=== PATIENT | female | born 1970 | race Caucasian/White ===

== ENCOUNTER 2021-05-08 08:32 | Outpatient (REF) | payer BC, SELFPAY ==
--- NOTE | ~2021-05-08 | MM_ITS ---
EXAMINATION: MM SCREENING DIGITAL BREAST TOMOSYNTHESIS, BILATERAL CLINICAL INFORMATION: Screening. Asymptomatic. The lifetime risk of breast cancer based on the Tyrer-Cuzick Model is 18%. COMPARISON: Mammography: 05/02/2020, 04/27/2019 (baseline) TECHNIQUE: Digital breast tomosynthesis is performed in both the craniocaudal and mediolateral oblique views along with computer-aided detection (CAD). Synthesized 2D images are generated from the tomosynthesis. FINDINGS: There are scattered areas of fibroglandular density (ACR BI-RADS breast composition Category b). There are no significant masses, abnormal calcifications, or other abnormalities. Parenchymal pattern is similar to prior studies. No developing density. Skin contours are smooth. No significant changes. MM/MM tomosynthesis screening BI IMPRESSION: No mammographic evidence of malignancy. ASSESSMENT: BI-RADS 1: Negative RECOMMENDATION: Routine annual mammography screening. This patient's information was entered into a reminder system with a target due date for their next mammogram.
== END 2021-05-08 08:33 | disposition home or self-care (01) ==
LOC: HO.MAMMO 08:32
PROVIDERS: PCP Internal Medicine; Visit Provider Internal Medicine
DX: Z12.31 Encounter for screening mammogram for malignant neoplasm of breast (principal)
CPT/HCPCS: 77063; 77067

== ENCOUNTER 2022-05-11 10:20 | Outpatient (REF) | payer BC, SELFPAY ==
--- NOTE | ~2022-05-11 | MM_ITS ---
EXAMINATION: MM SCREENING DIGITAL BREAST TOMOSYNTHESIS, BILATERAL CLINICAL INFORMATION: Screening. Asymptomatic. Family history breast cancer, mother. The lifetime risk of breast cancer based on the Tyrer-Cuzick Model is 22%. COMPARISON: Mammography: 05/08/2021, 05/02/2020, 04/27/2019 TECHNIQUE: Digital breast tomosynthesis is performed in both the craniocaudal and mediolateral oblique views along with computer-aided detection (CAD). Synthesized 2D images are generated from the tomosynthesis. FINDINGS: There are scattered areas of fibroglandular density (ACR BI-RADS breast composition Category b). Left breast has tightly grouped smooth nodularity mid 3:30 o'clock position encompassing an area just under 1 cm representing change from prior studies, possibly grouped cysts or intramammary node. Patient will be recalled for additional imaging. The remainder the breasts show parenchymal pattern similar to prior studies. There is no architectural abnormality or abnormal calcifications. The axilla and skin contours are unremarkable. MM/MM tomosynthesis screening BI IMPRESSION: Left: -Tightly grouped smooth nodularity mid 3:30 o'clock position possibly cyst or intramammary node. Right: -No mammographic evidence of malignancy. ASSESSMENT: BI-RADS 0: Incomplete - Need Additional Imaging Evaluation RECOMMENDATION: 1. Targeted ultrasound left breast. 2. Radiology department staff will contact the patient for additional imaging. This patient's information was entered into a reminder system with a target due date for their next mammogram.
== END 2022-05-11 10:21 | disposition home or self-care (01) ==
LOC: HO.MAMMO 10:20
PROVIDERS: PCP Internal Medicine; Visit Provider Internal Medicine
DX: Z12.31 Encounter for screening mammogram for malignant neoplasm of breast (principal)
CPT/HCPCS: 77063; 77067

== ENCOUNTER 2022-05-15 09:28 | Outpatient (REF) | payer BC, SELFPAY ==
--- NOTE | ~2022-05-15 | US_ITS ---
EXAMINATION: US DIAGNOSTIC ULTRASOUND BREAST, LEFT CLINICAL INFORMATION: Recall from screening mammography for small grouped smooth nodularity mid 3:30 o'clock left breast. Family history breast cancer mother. TC score 22%. COMPARISON: Mammography 05/11/2022, 05/08/2021. TECHNIQUE: Ultrasound of the left breast is targeted to the outer breast. Grayscale imaging and color Doppler are performed without and with harmonics. FINDINGS: There are several grouped small simple cysts 3:30 o'clock position 4 cm from nipple with overall combined dimensions just under 1 cm corresponding to recent mammography. There is increased through-transmission of sound. No solid component or associated color flow. There is no focal suspicious finding. There is no solid mass, architectural abnormality, or duct ectasia. Results are discussed with the patient at time of visit. US/US breast LT limited IMPRESSION: Small simple cysts grouped 3:30 o'clock position corresponding to recent mammography. ASSESSMENT: BI-RADS 2: Benign RECOMMENDATION: Routine annual mammography screening. This patient's information was entered into a reminder system with a target due date for their next mammogram.
== END 2022-05-15 09:29 | disposition home or self-care (01) ==
LOC: HO.MAMMO 09:28
PROVIDERS: PCP Internal Medicine; Visit Provider Internal Medicine
DX: N63.25 Unspecified lump in the left breast, overlapping quadrants (principal)
CPT/HCPCS: 76642

== ENCOUNTER 2023-05-17 10:49 | Outpatient (REF) | payer BC, SELFPAY | END 2023-05-17 10:50 | disposition home or self-care (01) | LOC: HO.MAMMO 10:49 | PROVIDERS: PCP Hospitalist; Visit Provider Hospitalist | DX: Z12.31 Encounter for screening mammogram for malignant neoplasm of breast (principal) | CPT/HCPCS: 77063; 77067 ==

== ENCOUNTER → 2023-05-17 11:00 | Outpatient (BNV) | payer BC, SELFPAY | PROVIDERS: PCP Hospitalist; Visit Provider Radiology Diagnostic Radiology | DX: Z12.31 Encounter for screening mammogram for malignant neoplasm of breast (principal) | CPT/HCPCS: 77063; 77067 ==

== ENCOUNTER 2023-08-04 14:37 | Outpatient (AMB) | payer BC, SELFPAY ==
[2023-08-04 14:43] VITALS: BP 124/74; PULSE 97; O2SAT 99; BMI 37.1
--- NOTE | 2023-08-04 14:43 | A.OFFPC_ITS ---
Vital Signs 08/04/23 14:43 Height 5 ft 4 in Weight 216 lb BMI 37.1 BP 124/74 Blood Pressure Location Lt brachial Position Sitting Pulse 97 Pulse Source Pulse Oximeter Pulse Oximetry (%) 99 Oxygen Delivery Method Room Air Intake Visit Reasons: New patient-Requesting physical Intake Note: Patient is here as a new patient, and would like to discuss weight loss, and pressure in her bladder area. Allergies azithromycin Allergy (Unknown, Verified 08/04/23 14:45) stomach upset Tobacco use date assessed: 08/04/23 Dental Screening Dental Screen Date: 08/04/23 Did you have a dental visit in the last 12 months?: Yes Did you have a dental problem in the last 6 months where you did not have access to dental care?: No Was dental information given to patient?: Patient has dentist HPI New patient-Requesting physical HPI Details New patient Prior PCP:?Dr. Hook, Dr. Forrest Last office visit/CPE: 5 years ago Acute issue(s): Bladder pressure from November till February. -She denies any dysuria or frequency. Sh e has had UTIs before but states symptoms feel different. PMHx: Obesity, Asthma SurgHx: second child 2000, tubal ligation FHx: Mom: Breast Cancer 74. Dad: Healthy. Brother: CAD. SocHx: Nonsmoker. EtOH 1-2x per year. No drugs. PFSH Medical History (Updated 08/04/23 @ 15:33 by Daniel Bond) delivery delivered Asthma Surgical History (Updated 08/04/23 @ 14:53 by Lien Patterson [employer]) H/O tubal ligation Family History (Updated 08/04/23 @ 14:56 by Lien Patterson CMA) Mother Breast cancer Sister Breast cancer Family/Other Leukemia Social History (Updated 08/04/23 @ 14:58 by Lien Patterson CMA) Household Members: Children Housing: Condominium Are you a primary transitional care nurse to a significant other at home: No Do you presently have visiting nurse or other home services: No Alcohol intake: current Patient Tobacco Use Status: Never used Tobacco e-Cigarette/Vaping Use: Never Used service: No Current occupational status: employed 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 1. Little interest or pleasure in doing things: not at all 2. Feeling down, depressed, or hopeless: not at all 3. Trouble falling or staying asleep, or sleeping too much: several days 4. Feeling tired or having little energy: several days 5. Poor appetite or overeating: several days 6. Feeling bad about yourself - or that you are a failure or have let yourself or your family down: not at all 7. Trouble concentrating on things, such as reading the newspaper or watching television: not at all 8. Moving or speaking so slowly that other people could have noticed. Or the opposite - being so fidgety or restless that you have been moving around a lot more than usual: not at all 9. Thoughts that you would be better off or of hurting yourself in some way: not at all Total score: 3 Source: Developed by Drs. Lenin Ortiz, Felicia Pitts, Amador Rodarte and colleagues, with an educational marichuy from [employer]. AUDIT C Alcohol Use Questionnaire (AUDIT-C) 1. How often do you have a drink containing alcohol?: Monthly or less 2. How many drinks containing alcohol do you have on a typical day when you are drinking?: 1 or 2 3. How often do you have six or more drinks on one occasion?: Never Total Score: 1 ROBERTO-7 AMB Questionnaire ROBERTO-7 Date ROBERTO - 7 assessed: 08/04/23 Feeling nervous, anxious, or on edge: 0 = Not at all Not being able to stop or control worryin = Not at all Worrying too much about different things: 0 = Not at all Trouble relaxin = Not at all Being so restless that it is hard to sit still: 0 = Not at all Becoming easily annoyed or irritable: 0 = Not at all Feeling afraid as if something awful might happen: 0 = Not at all Total ROBERTO-7 score (0-4 normal; 5-9 mild; 10-14 moderate; 15-21 severe): 0 Source: Developed by Drs. Lenin Ortiz, Amador Hankins Kroenke and colleagues, with an educational marichuy from [employer]. ACT Questionnaire In the past 4 weeks, how much of the time did your asthma keep you from getting as much done at work, school or at home?: None of the time During the past 4 weeks, how often have you had shortness of breath?: Not at all (once or twice in the last 4 weeks) During the past 4 weeks, how often did your asthma symptoms wake you up at night or earlier than usual in the morning?: Not at all (once or twice in the last 4 weeks) During the past 4 weeks, how often have you had to use your rescue inhaler or nebulizer medication?: Not at all How would you rate your asthma control during the past 4 weeks?: Well controlled Score: 24 Review of Systems Const Denies chills, Denies fatigue, Denies fever(s), Denies headache(s) and Denies weakness ENT Denies dizziness and Denies headache(s) Card Denies chest pain, Denies lightheadedness, Denies dyspnea and Denies other (Palpitations) Resp Denies cough, Denies dyspnea, Denies wheezing and Denies other ( shortness of breath) Musc Denies numbness and Denies tingling Neuro Denies dizziness, Denies headache(s), Denies numbness, Denies tingling, Denies p aresthesias and Denies weakness Psych Denies anxiety and Denies depression Endo Denies fatigue Aller/Immun Denies wheezing Physical exam (Primary Care) Vital Signs: Last Vital Signs Pulse 97 08/04/23 14:43 BP 124/74 08/04/23 14:43 Pulse Ox 99 08/04/23 14:43 Oxygen Delivery Method Room Air 08/04/23 14:43 BMI result Body Mass Index 37.1 Tobacco/Smoking Status: Tobacco use Status Tobacco use date assessed 08/04/23 08/04/23 15:08 Patient Tobacco Use Status Never used Tobacco 08/04/23 15:08 e-Cigarette/Vaping Use Never Used 08/04/23 15:08 PHQ-9: PHQ-9 Score PHQ-9: Total score 3 08/04/23 15:16 Const General: no acute distress and well developed Nutritional Appearance: obese Orientation/consciousness: patient oriented x3 HENMT Head: Yes normocephalic and Yes atraumatic Eyes General: appearance normal, both eyes and all related structures Pupils: Equal, round and reactive pupils present EOM: EOMs intact bilaterally Resp Effort & Inspection: normal respiratory effort Auscultation: clear to auscultation bilaterally Cardio Rate: regular rate Rhythm: regular rhythm Heart sounds: S1 normal heart sound present, S2 normal heart sound present, no gallops, no murmurs and no rubs Neuro General: patient oriented x3 and gait normal Cranial nerves: Yes Equal, round and reactive pupils present Psych Affect: normal affect Assessment and Plan Assessment & Plan (1) Obesity: Code(s): E66.9 - Obesity, unspecified Plan: Check?labs Will?likely?discuss?referral?to?weight?management?program (2) Sensation of pressure in bladder area: Code(s): R39.89 - Other symptoms and signs involving the genitourinary system Plan: Longstanding?sensation?of?pressure?in?her?bladder. Check?urinalysis?and?culture Hydrate?well If?symptoms?persist?and?no?explanation?by?labs,?will?get?ultrasound?and?refer?he r?to?Urology (3) Asthma: Code(s): J45.909 - Unspecified asthma, uncomplicated Plan: Will?send?script?for?inhaler She?has?been?stable?and?her?lungs?are?clear?today. (4) Breast cancer screening by mammogram: Code(s): Z12.31 - Encounter for screening mammogram for malignant neoplasm of breast Plan: Benign?findings?in?April?2021?by?a?mammogram?and?ultrasound. April?2022?mammogram?is?negative?and?recommended?annual?screening. (5) Laboratory exam ordered as part of routine general medical examination: Code(s): Z00.00 - Encounter for general adult medical examination without abnormal findings Plan: Check?labs Orders: Orders Lipid Panel Today Z00.00 - Encounter for general adult medical examination without abnormal findings UA and rflx microscopic Today Z00.00 - Encounter for general adult medical examination without abnormal findings TSH reflex Free T4 Today Z00.00 - Encounter for general adult medical examination without abnormal findings Urine Culture Today R39.89 - Other symptoms and signs involving the genitourinary system Complete Blood Count Auto Diff Today Z00.00 - Encounter for general adult medical examination without abnormal findings Comprehensive Webster. Panel Fast Today Z00.00 - Encounter for general adult medical examination without abnormal findings Microalbumin, Random (w Creat) Today I10 - Essential (primary) hypertension Medications: New albuterol sulfate 90 mcg/actuation (ProAir HFA) 2 puffs inhalation Q4-6H PRN 8.5 grams 0RF shortness of breath or wheezing 30 days Coding Level of Care Code New Pt Level 3 (73659) Diagnoses Obesity E66.9 Sensation of pressure in bladder area R39.89 Asthma J45.909 Breast cancer screening by mammogram Z12.31 Laboratory exam ordered as part of routine general medical examination Z00.00
== END 2023-08-04 15:52 | disposition home or self-care (01) ==
PROVIDERS: PCP Family Medicine; Visit Provider Family Medicine
DX: J45.909 Unspecified asthma, uncomplicated (principal); E66.9 Obesity, unspecified; R39.89 Other symptoms and signs involving the genitourinary system; Z68.37 Body mass index [BMI] 37.0-37.9, adult
CPT/HCPCS: 99203

== ENCOUNTER 2023-08-04 15:35 | Outpatient (REF) | payer BC, SELFPAY ==
[2023-08-05 12:30] LABS: Appearance Urine Cloudy; Color Urine Yellow; Glucose Urine UA Negative (Negative); Leukocyte Esterase Urine Negative (Negative); Nitrite Urine Negative (Negative); PH 7.5 (5.0-9.0); Urine Blood Negative (Negative); Urine Ketones Negative (Negative); Urine Protein Negative (Neg-Trace)
== END 2023-08-04 15:36 | disposition home or self-care (01) ==
LOC: HO.LAB 15:35
PROVIDERS: Visit Provider Family Medicine
DX: Z00.00 Encounter for general adult medical examination without abnormal findings (principal); R39.89 Other symptoms and signs involving the genitourinary system
CPT/HCPCS: 81003; 87086

== ENCOUNTER 2023-09-01 07:25 | Outpatient (REF) | payer BC, SELFPAY ==
[2023-09-01 11:17] LABS: MANUAL DIFF FLAG NO
[2023-09-01 11:22] LABS: Basophils Absolute Auto 0.1 X10*3/uL (0.0-0.2); Basophils Percent Auto 0.4 % (0-2); Eosinophils Absolute Auto 0.1 X10*3/uL (0.0-0.4); Eosinophils Percent Auto 0.9 % (0-4); Hematocrit 39.4 % (37.0-47.0); Hemoglobin 12.2 g/dl (12.0-16.0); Imm Gran Abs Auto 0.09 X10*3/uL (0.00-0.03); Imm Gran Pct Auto 0.6 % (0.0-0.4); Lymphocytes Absolute Auto 2.1 X10*3/uL (1.2-4.9); Lymphocytes Percent Auto 14.6 % (20-40); Mean Corpuscular Hemoglobin 24.5 pg (27.0-33.0); Mean Corpuscular Volume 79.3 fL (80.0-98.0); Mean Platelet Volume 9.5 fL (9.4-12.3); Monocytes Absolute Auto 0.6 X10*3/uL (0.1-1.2); Monocytes Percent Auto 4.1 % (2-11); Neutrophils Absolute Auto 11.3 x10*3/uL (2.0-8.3); Neutrophils Percent Auto 79.4 % (45-73); Platelet Count 418 X10*3/uL (160-400); Red Blood Count 4.97 X10*6/uL (4.20-5.50); White Blood Count 14.3 X10*3/uL (4.8-10.8)
[2023-09-01 11:43] LABS: Alanine Aminotransferase 15 U/L (0-31); Albumin Level 3.9 g/dL (3.5-5.0); Alkaline Phosphatase 83 U/L (39-117); Anion Gap 12 (12-20); Aspartate Amino Transferase 16 U/L (5-31); Bilirubin Total 0.4 mg/dL (0.0-1.0); Blood Urea Nitrogen 8 mg/dL (9-16); Calcium 9.3 mg/dL (8.4-10.2); Carbon Dioxide 27 mmol/L (22-29); Chloride 103 mmol/L (96-108); Cholesterol 158 mg/dL (<200); Estimated Glomerular Filt Rate > 60; Glucose Fasting 143 mg/dL (60-99); HDL Cholesterol 33 mg/dL (>40); LDL Cholesterol Calculated 109 mg/dL (<100); Potassium 3.9 mmol/L (3.3-5.1); Sodium 138 mmol/L (135-145); Total Protein 7.6 g/dL (6.5-8.0); Triglycerides 81 mg/dL (<150)
[2023-09-01 11:57] LABS: Microalbumin Urine < 5.0 mg/L
== END 2023-09-01 07:26 | disposition home or self-care (01) ==
LOC: HO.WFDLDS 07:25
PROVIDERS: Visit Provider Family Medicine
DX: Z00.00 Encounter for general adult medical examination without abnormal findings (principal); I10 Essential (primary) hypertension
CPT/HCPCS: 36415; 80053; 80061; 82570; 84443; 85025

== ENCOUNTER 2023-11-18 08:53 | Outpatient (AMB) | payer BC, SELFPAY ==
[2023-11-18 09:00] VITALS: BP 126/76; PULSE 101; O2SAT 98; BMI 36.6
--- NOTE | 2023-11-18 09:00 | A.OFFPC_ITS ---
Vital Signs 11/18/23 09:00 Height 5 ft 4 in Weight 213 lb 4 oz BMI 36.6 BP 126/76 Blood Pressure Location Lt brachial Position Sitting Pulse 101 H Pulse Source Pulse Oximeter Pulse Oximetry (%) 98 Oxygen Delivery Method Room Air Intake Visit Reasons: cpe Intake Note: Patient is here for her physical, and follow up on labs. Patient is concerned about having migraines, and congestion. Allergies azithromycin Allergy (Unknown, Verified 08/04/23 14:45) stomach upset Tobacco use date assessed: 11/18/23 Dental Screening Dental Screen Date: 11/18/23 HPI cpe HPI Details 53 y/o female presents for a CPE with f/ u labs and health maintenance. Labs were drawn 09/01/23. Reviewed labs with pt. Elevated WBC 14.3. MCV/MCH mildly low. PLT mildly elevated at 418. Elevated fasting glucose of 143. Triglycerides 81. TC 158. LDL 109. HDL low at 33. A1c today 11/18/23 is 9.2%. 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 1. Little interest or pleasure in doing things: not at all 2. Feeling down, depressed, or hopeless: not at all 3. Trouble falling or staying asleep, or sleeping too much: nearly every day 4. Feeling tired or having little energy: several days 5. Poor appetite or overeating: not at all 6. Feeling bad about yourself - or that you are a failure or have let yourself or your family down: not at all 7. Trouble concentrating on things, such as reading the newspaper or watching television: not at all 8. Moving or speaking so slowly that other people could have noticed. Or the opposite - being so fidgety or restless that you have been moving around a lot more than usual: not at all 9. Thoughts that you would be better off or of hurting yourself in some way: not at all Total score: 4 Source: Developed by Drs. Lenin Ortiz, Felicia Pitts, Amador Rodarte and colleagues, with an educational marichuy from [employer]. Thrive Questionnaire Date Thrive assessed: 11/18/23 I am a: Patient What is your living situation today?: I have a steady place to live Within the past 12 months, did the food you bought not last and you didn't have the money to get more?: Never true Within the past 12 months, did you worry whether your food would run out before you got money to buy more?: Never true Do you have trouble paying for medicines?: No Do you have trouble getting transportation to medical appointments?: No Do you have trouble paying your heating and electricity bill?: No Do you have trouble taking care of your child, family member or friend?: No Do you have trouble with day-to-day activities such as bathing, preparing meals, shopping, managing finances, etc.?: No Are you currently unemployed and looking for a job?: No Are you interested in more education?: No THRIVE Score: 0 AUDIT C Alcohol Use Questionnaire (AUDIT-C) 1. How often do you have a drink containing alcohol?: Never 3. How often do you have six or more drinks on one occasion?: Never Total Score: 0 ROBERTO-7 AMB Questionnaire ROBERTO-7 Date ROBERTO - 7 assessed: 11/18/23 Feeling nervous, anxious, or on edge: 0 = Not at all Not being able to stop or control worryin = Not at all Worrying too much about different things: 0 = Not at all Trouble relaxin = Not at all Being so restless that it is hard to sit still: 0 = Not at all Becoming easily annoyed or irritable: 0 = Not at all Feeling afraid as if something awful might happen: 0 = Not at all Total ROBERTO-7 score (0-4 normal; 5-9 mild; 10-14 moderate; 15-21 severe): 0 Source: Developed by Drs. Lenin Ortiz, Felicia Pitts, Amador Rodarte and colleagues, with an educational marichuy from [employer]. Review of Systems Const Denies chills, Denies fatigue, Denies fever(s), Denies headache(s) and Denies weakness Eyes Denies change in vision ENT Denies dizziness, Denies headache(s), Denies hearing loss, Denies nasal congestion, Denies sinus pain, Denies sinus pressure and Denies sore throat Card Denies chest pain, Denies lightheadedness, Denies dyspnea and Denies other (palpitations) Resp Denies cough, Denies dyspnea and Denies wheezing GI Denies abdominal pain, Denies melena, Denies hematochezia, Denies change in bowel habits, Denies dyspepsia and Denies nausea Denies hematuria and Denies dysuria Musc Denies abnormal gait, Denies myalgias, Denies arthralgias, Denies numbness and Denies tingling Skin/Breast Denies rash, Denies unusual bruising and Denies wounds Neuro Denies abnormal gait, Denies dizziness, Denies headache(s), Denies memory loss, Denies numbness, Denies Sensory deficit (Neuro), Denies tingling and Denies weakness Psych Denies anxiety, Denies depression and Denies memory loss Endo Denies cold intolerance, Denies fatigue, Denies heat intolerance, Denies polydipsia and Denies polyuria Kt/Lymph Denies easy bleeding and Denies easy bruising Aller/Immun Denies wheezing Physical exam (Primary Care) Vital Signs: Last Vital Signs Pulse 101 H 11/18/23 09:00 BP 126/76 11/18/23 09:00 Pulse Ox 98 11/18/23 09:00 Oxygen Delivery Method Room Air 11/18/23 09:00 BMI result Body Mass Index 36.6 Tobacco/Smoking Status: Tobacco use Status Tobacco use date assessed 11/18/23 11/18/23 09:12 Patient Tobacco Use Status Never used Tobacco 11/18/23 09:04 e-Cigarette/Vaping Use Never Used 11/18/23 09:04 PHQ-9: PHQ-9 Score PHQ-9: Total score 4 11/18/23 09:31 Thrive Assessment: Date of Thrive Assessment Date Thrive assessed 11/18/23 11/18/23 09:12 Const General: no acute distress, well developed, alert and awake Nutritional Appearance: well nourished Orientation/consciousness: patient oriented x3 HENMT Head: Yes normocephalic and Yes atraumatic Ears: hearing grossly normal bilaterally and TM's normal bilaterally General nose exam: Normal external nose present and Normal nares present Mouth: Normal oral and palatal mucosa present and moist mucous membranes Teeth and gingiva: dentition normal Throat: Yes posterior oropharynx normal Eyes General: appearance normal, both eyes and all related structures Pupils: Equal, round and reactive pupils present and Pupil accommodation reflex normal EOM: EOMs intact bilaterally Neck Neck: Yes normal visual inspection, Yes no lymphadenopathy and Yes trachea midline Thyroid: Thyroid normal Carotids: no bruits Lymphatic: no lymphadenopathy noted Chest Chest palpation & inspection: normal inspection of the chest Resp Effort & Inspection: normal respiratory effort Auscultation: clear to auscultation bilaterally Cardio Rate: regular rate Rhythm: regular rhythm Heart sounds: S1 normal heart sound present, S2 normal heart sound present, no gallops, no murmurs and no rubs Bruits: no abdominal aortic bruits and no carotid bruits GI Palpation (GI): No Abdominal aortic bruit present, Soft to palpation, nontender, No hepatosplenomegaly present and No Rebound tenderness present Auscultation: normal bowel sounds General: Yes no CVA tenderness Back/Spine/Pelvis Back: no CVA tenderness Cervical Spine: cervical ROM normal and No Cervical spine tenderness Thoracic/Lumbar Spine: thoraco-lumbar ROM normal, No pain with thoraco-lumbar ROM, No thoracic spinal tenderness and No lumbar spinal tenderness Skin Lesions: no lesions Rashes: no rashes Trauma: no lacerations or abrasions Wounds: no wounds Nails: normal Neuro General: patient oriented x3 Cranial nerves: Yes Equal, round and reactive pupils present Cognition (Neuro): normal cognition Gait exam (Neuro): Normal gait present Motor exam (neuro): 5/5 motor strength present throughout Sensory Exam: No Sensory deficit (Neuro) Deep tendon reflexes (DTR's): Right patellar reflex intensity grade: 2+ and Left patellar reflex intensity grade: 2+ Extrem General: Yes normal to inspection and No edema Psych Appearance: grossly normal Affect: normal affect Attitude: cooperative Thought process: Normal thought process present Results AMB Hemoglobin A1c AMB Hemoglobin A1c 9.2 % Last Edit by Julia Pompa CMA on 11/18/23 09:34 Results Reviewed Results Reviewed: Laboratory Last Values Hgb A1c (Clinic) 9.2 % (4.0-6.0) H 11/18/23 09:30 Assessment and Plan Assessment & Plan (1) Adult general medical exam: Code(s): Z00.00 - Encounter for general adult medical examination without abnormal findings Plan: 53-year-old?female?presents?for?complete?physical?exam Encouraged?healthy?diet?with?active?lifestyle?and?plenty?of?exercise (2) Diabetes: Code(s): E11.9 - Type 2 diabetes mellitus without complications Plan: A1c?9.2%.??New?diagnosis?of?diabetes?and?goal?is?less?than?7.0% Start?metformin Discussed?diet?and?exercise?and?will?refer?her?to?the?nurse?navigator?for?diabet ic?teaching Will?follow-up?in?3?months (3) Nasal congestion: Code(s): R09.81 - Nasal congestion Plan: Start?Flonase (4) Thrombocytosis: Code(s): D75.839 - Thrombocytosis, unspecified Plan: Mild?thrombocytosis?with?mildly?elevated?white?blood?cell?count?and?H &H?are?within?normal?limits?though?there?is?a?mild?microcytosis. Wbc's?and?platelets?likely?reactionary Will?recheck?and?advised?her?to?try?not?to?have?her?blood?drawn?within?2- 3?weeks?of?her period. (5) Screening for colon cancer: Code(s): Z12.11 - Encounter for screening for malignant neoplasm of colon Plan: Cologuard?test?negative Up-to-date (6) Low HDL (under 40): Code(s): E78.6 - Lipoprotein deficiency Plan: Increase?exercise (7) Breast cancer screening by mammogram: Code(s): Z12.31 - Encounter for screening mammogram for malignant neoplasm of breast Plan: Up-to-date Mammogram?in?April?was?negative?for?malignancy?and?recommended?annual?screening (8) Screening for cervical cancer: Code(s): Z12.4 - Encounter for screening for malignant neoplasm of cervix Plan: She?has?an?appointment?with?her?crystal lapper?in?2?weeks. Will?also?discuss?pressure?in?bladder?sensation?though?I?am?referring?to?Urology ?as?well Plan LDL?cholesterol?is?a?little?above?goal?and?we?will?address?this?at?her?next?visi t Orders: Orders Comprehensive Endeavor. Panel Fast Today E11.9 - Type 2 diabetes mellitus without complications, Z00.00 - Encounter for general adult medical examination without abnormal findings AMB Hemoglobin A1c Today E11.9 - Type 2 diabetes mellitus without complications Complete Blood Count Auto Diff Today Z00.00 - Encounter for general adult medi darlene examination without abnormal findings Referrals Urology Referral R39.89 - Other symptoms and signs involving the genitourinary system Medications: New metformin 500 mg PO BID 60 tabs 3RF 30 days fluticasone propionate 50 mcg/actuation (Flonase Allergy Relief) administer into each nostril 1 spray intranasal Q12H 16 grams 2RF 30 days Coding Level of Care Code Est Pt Level 3 (08874) Est Pt Prev Care 40-64y(28627) Diagnoses Adult general medical exam Z00.00 Diabetes E11.9 Nasal congestion R09.81 Thrombocytosis D75.839 Screening for colon cancer Z12.11 Low HDL (under 40) E78.6 Breast cancer screening by mammogram Z12.31 Screening for cervical cancer Z12.4
== END 2023-11-18 09:53 | disposition home or self-care (01) ==
PROVIDERS: PCP Family Medicine; Visit Provider Family Medicine
DX: Z00.00 Encounter for general adult medical examination without abnormal findings (principal); E11.9 Type 2 diabetes mellitus without complications; R09.81 Nasal congestion; D75.839 Thrombocytosis, unspecified; E78.6 Lipoprotein deficiency; Z12.11 Encounter for screening for malignant neoplasm of colon; Z12.31 Encounter for screening mammogram for malignant neoplasm of breast
CPT/HCPCS: 83036; 99213; 99396

== ENCOUNTER 2023-11-30 08:59 | Outpatient (AMB) | payer BC, SELFPAY ==
--- NOTE | 2023-11-30 09:02 | A.OFFVIS_ITS ---
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 Present Allergies azithromycin Allergy (Unknown, Verified 11/30/23 09:08) stomach upset Medication List - Last Reconciled 11/30/23 by Samira Gutierrez CNM albuterol sulfate 90 mcg/actuation (ProAir HFA) 2 puffs inhalation Q4-6H PRN 30 days fluticasone propionate 50 mcg/actuation (Flonase Allergy Relief) 1 spray intranasal Q12H 30 days metformin 500 mg PO BID 30 days Is last menstrual period known: No (last period,3 mth ago unsure date) Do you need a note to return to daycare/school/sports/work: No HPI New patient Annual HPI Details Patient is here for a new ob gyn physician assistant annual exam it has been a lot of years since she has been into a ob gyn physician assistant visit she delivered both of her babies with Dr. Geller though she had transition to Dr. Renetta Bass for OB care for the 2nd 1. Her 1st baby was a very long traumatic labor with ruptured membranes Pitocin and just she is in a preeclampsia finally delivery with the massive tear front to back and hemorrhage with uterine non gloria and transfusions. It was so traumatic for her that would the 2nd 1 when there was a problem she proceeded to a . She just 2 weeks ago was diagnosed with diabetes and while she has lost weight before in the past she has taken this as a wake-up call and is endeavoring to lose weight and has lost 11 lb so far she is on metformin she does not have her own glucometer yet but has been checking it with her sister's glucometer and ranges from 119 to 130 in the morning. 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 She has a fiance she has not at all worried about any STDs but is open to the testing that goes along with the Pap smear. She never had an abnormal Pap smear she always had very regular periods until last year when she started skipping a month here in a month there and the last 1 was about 3 months ago in July. She has some hot flashes but they are not too bad. She reports occasional leaking of urine she does think she empties her urine all the way and she does Kegel's a lot. She has a referral pending to Urology as well. 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 [facility] Medical History (Updated 11/30/23 @ 10:15 by Samira Gutierrez CNM) Diabetes delivery delivered Asthma Surgical History H/O tubal ligation Family History Mother Breast cancer Sister Breast cancer Family/Other Leukemia Social History Household Members: Children Housing: Condominium Are you a primary special needs caregiver to a significant other at home: No Do you presently have visiting nurse or other home services: No 75 years or older and lives alone: No Alcohol intake: current Patient Tobacco Use Status: Never used Tobacco e-Cigarette/Vaping Use: Never Used service: No Current occupational status: employed 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[employer] Cognitive needs: No Hearing needs: No Vision needs: Yes (Patient wears transition lenses) Female Reproductive History Menstrual Age of Menarche: 16 Duration of menses: 3-5 days control method: permanent sterilization Total pregnancies: 2 Full term: 2 History of abnormal pap smear: No (ptevious pap ,2001,neg.) Physical Exam Vital Signs: BMI result Body Mass Index 36.0 Const General: healthy appearing, comfortable, no acute distress, well developed and alert Nutritional Appearance: average body habitus and obese Orientation/consciousness: patient oriented x3 Limitations: no limitations HEENT Head: Yes normocephalic Neck Neck: Yes normal visual inspection Chest Chest palpation & inspection: normal inspection of the chest Breast/axilla inspection: normal inspection of the breasts and normal inspection of the axillae Breast/axilla palpation: normal palpation of the breasts and normal palpation of the axillae Resp Effort & Inspection: normal respiratory effort GI Inspection: Yes normal to inspection, No Abdominal wall edema and No distended Palpation (GI): Soft to palpation and nontender Other: External exam within normal limits vagina pink moist cervix pink smooth healthy challenging to visualize secondary to redundant vaginal tissue but mobile nontender adnexa and uterus nontender difficult to palpate. Patient has excellent tone with Kegel. She reports occasional incontinence.. General: Yes bladder normal to palpation External Female Exam: normal external appearance and normal appearance of the urethra Speculum Exam - Vagina: normal appearance of the vagina, normal palpation and normal vaginal discharge Speculum Exam - Cervix: normal appearance of the cervix, normal palpation and nontender Bimanual exam- vagina & uterus: normal bimanual exam, normal palpation, uterine size normal, bladder normal to palpation, consistency normal, normal palpation, uterine mobility normal, uterine shape normal, No Cervical tenderness present, non-tender and no cervical motion tenderness Bimanual Exam- Adnexa, other: normal adnexae, no masses, normal and No adnexal tenderness Neuro General: patient oriented x3 Assessment & Plan Assessment & Plan (1) Diabetes: Code(s): E11.9 - Type 2 diabetes mellitus without complications (2) Breast cancer screening by mammogram: Code(s): Z12.31 - Encounter for screening mammogram for malignant neoplasm of breast (3) Sensation of pressure in bladder area: Code(s): R39.89 - Other symptoms and signs involving the genitourinary system (4) Obesity: Code(s): E66.9 - Obesity, unspecified (5) Well woman exam with routine gynecological exam: Code(s): Z01.419 - Encounter for gynecological examination (general) (routine) without abnormal findings Plan -----Discussed in this visit the following: healthy balanced diet, regular and consistent exercise, getting recommended health screens, doing the best she can for her particular health concerns, kegel exercises, pap smear screening and followup recommendations, mammography screening and SBE, normal changes in cycles in her life stage--- . Reviewed her Kegel's reviewed full emptying of the bladder which she would believes she does the main thing is trying to get to the bathroom to void more frequently and that is challenging in her work profession. She is going to follow-up with urology as well and continue with her Kegel's and just try to void more frequently Sometimes spent reviewing her traumatic births and it is only natural to avoid dealing with anything that is a reminder of those experiences. Pap done she is on the portal discussed Pap frequency of maybe every 3-5 years if this 1 is normal just because it has been so long since her last Pap. Offered other testing for STIs but she has not concerned discussed that if she changes her mind she could always get them along with other lab work per her primary. Congratulated on her weight loss thus far and discussed calcium needs and other issues with perimenopause.. Coding Level of Care Code New Pt Prev Care 40-64y(90650) Diagnoses Diabetes E11.9 Breast cancer screening by mammogram Z12.31 Sensation of pressure in bladder area R39.89 Obesity E66.9 Well woman exam with routine gynecological exam Z01.419
[2023-11-30 09:07] VITALS: BMI 36.0
== END 2023-11-30 10:12 | disposition home or self-care (01) ==
LOC: HO.HWSM 09:00
PROVIDERS: PCP Family Medicine; Visit Provider Advanced Practice Midwife
DX: Z01.419 Encounter for gynecological examination (general) (routine) without abnormal findings (principal); R39.89 Other symptoms and signs involving the genitourinary system; E66.9 Obesity, unspecified; E11.9 Type 2 diabetes mellitus without complications
CPT/HCPCS: 99386

== ENCOUNTER 2023-11-30 08:59 | Outpatient (REF) | payer BC, SELFPAY ==
[2023-12-01 01:51] LABS: CT PCR NOT DETECTED (Not Detect.); NG PCR NOT DETECTED (Not Detect.)
[2023-12-01 14:50] LABS: BV Int Neg Control Negative (Negative); BV Int Pos Control Positive (Positive)
== END 2023-11-30 09:00 | disposition home or self-care (01) ==
LOC: HO.LAB 08:59
PROVIDERS: PCP Family Medicine; Visit Provider Advanced Practice Midwife
DX: Z01.419 Encounter for gynecological examination (general) (routine) without abnormal findings (principal); Z20.2 Contact with and (suspected) exposure to infections with a predominantly sexual mode of transmission
CPT/HCPCS: 0353U; 87480; 87510; 87660; 88142

== ENCOUNTER 2024-01-07 12:46 | Outpatient (AMB) | payer BC, SELFPAY ==
--- NOTE | 2024-01-07 13:03 | A.OFFVIS_ITS ---
Intake Intake Visit Reasons: bladder pressure Intake Note: New Patient presents for initial visit for bladder pressure Urology Medications: none Blood Thinner: none PVR: 40ml's Fireperson Required: No Accompanied by: Self / Same As Patient Allergies azithromycin Allergy (Unknown, Verified 01/09/24 00:33) stomach upset Medication List - Last Reconciled 01/09/24 by SOCORRO Russell albuterol sulfate 90 mcg/actuation (ProAir HFA) 2 puffs inhalation Q4-6H PRN 30 days fluticasone propionate 50 mcg/actuation (Flonase Allergy Relief) 1 spray intranasal Q12H 30 days metformin 500 mg PO BID 30 days oxybutynin chloride ER 10 mg PO DAILY 30 days HPI HPI Comments History of Present Illness Details Rowena is a very pleasant 53-year-old female patient of Dr. Howard. She has a past medical history of asthma and diabetes. She presents to the office today as a new patient for ongoing lower urinary tract s ymptoms. In discussion with the patient today she reports having had a urinary tract infection approximately 2 years ago and feels urinary issues have intermittently continued. She reports feeling at times to have bladder pressure, feeling of incomplete bladder emptying, urinary urgency, and urinary frequency. She reports currently feeling ongoing lower urinary tract symptoms. She discusses feeling within the last 2 years she has had moments of relief in lower urinary tract symptoms however describes these symptoms as intermittent at times however they do last for long periods of time. She reports being premenopausal and has not had her menses and approximately 5 months. She becomes tearful during today's visit as she feels when symptoms do occur she feels they are extremely bothersome. 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 She otherwise denies hematuria, foul smelling urine, changes to urinary stream, flank pain, fever, and or chills. She also reports mixed incontinence. In office urinalysis results reviewed with the patient today. PVR 40 mL. She otherwise denies any other issues or concerns at this time. 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[employer] Cognitive needs: No Hearing needs: No Vision needs: Yes (Patient wears transition lenses) Female Reproductive History Menstrual Age of Menarche: 16 Review of Systems Const Reports no additional complaints Eyes Reports no additional complaints ENT Reports no additional complaints Card Reports no additional complaints Resp Reports as per HPI GI Reports no additional complaints Reports as per HPI Musc Reports no additional complaints Neuro Reports no additional complaints Psych Reports no additional complaints Endo Reports as per HPI Kt/Lymph Reports no additional complaints Aller/Immun Reports no additional complaints Physical Exam Const General: cooperative, healthy appearing, comfortable, no acute distress, well developed, alert and awake Orientation/consciousness: patient oriented x3 Limitations: no limitations HEENT Head: Yes normal to inspection, Yes normocephalic and Yes atraumatic Ears: hearing grossly normal bilaterally Eyes General: appearance normal, both eyes and all related structures Neck Neck: Yes normal visual inspection and Yes trachea midline Chest Chest palpation & inspection: normal inspection of the chest Resp Effort & Inspection: normal respiratory effort and able to speak in complete sentences Cardio Rate: regular rate GI Inspection: Yes normal to inspection General: Yes no CVA tenderness Back/Spine/Pelvis Back: no CVA tenderness Skin General skin exam: no rashes or lesions noted Neuro General: patient oriented x3 Extrem General: Yes normal to inspection Psych Appearance: grossly normal and well kempt Mental Status: mental status grossly normal Speech and movement: Normal speech and movement present and Clear speech present Affect: normal affect Attitude: cooperative Thought process: Normal thought process present Thought content: Normal thought content present Insight: Fair insight present (Psych) Judgement: Fair judgement present (Psych) Office Procedures Post Void Residual Post Residual Void Post Void Residual (PVR): 40 [id number] Void Residual by ultrasound Results AMB Urinalysis, Automated UA Leukoctes 0 Ama/uL Last Edit by Stacey Plasencia on 01/07/24 13:25 UA Nitrite Negative Last Edit by Brandyce Bress on 01/07/24 13:25 UA Urobilinogen 0.2 mg/dL Last Edit by Brandyce Bress on 01/07/24 13:25 UA Protein 0 mg/dL Last Edit by Brandyce Bress on 01/07/24 13:25 UA pH 6.0 Last Edit by Brandyce Bress on 01/07/24 13:25 UA Blood 0 Rolando/uL Last Edit by Brandyce Bress on 01/07/24 13:25 UA Specific [place] 1.015 Last Edit by Brandyce Bress on 01/07/24 13:25 UA Ketone Negative Last Edit by [employer] Bress on 01/07/24 13:25 UA Bilirubin 0 mg/dL Last Edit by [employer] Astrideliana on 01/07/24 13:25 UA Glucose 0 mg/dL Last Edit by [employer] Astrideliana on 01/07/24 13:25 Results Reviewed Results Reviewed: Laboratory Last Values Urine pH (Auto) 6.0 01/07/24 13:08 Specific [place] (Auto) 1.015 01/07/24 13:08 Urine Protein (Auto) 0 mg/dL 01/07/24 13:08 Glucose (UA)(Auto) 0 mg/dL 01/07/24 13:08 Urine Ketones (Auto) Negative 01/07/24 13:08 Urine Blood (Auto) 0 Rolando/uL 01/07/24 13:08 Urine Nitrite (Auto) Negative 01/07/24 13:08 Urine Bilirubin (Auto) 0 mg/dL 01/07/24 13:08 Urine Urobilinogen (Auto) 0.2 mg/dL 01/07/24 13:08 Leukocyte Esterase (Auto) 0 Ama/uL 01/07/24 13:08 Assessment & Plan Assessment & Plan (1) Mixed stress and urge urinary incontinence: Code(s): N39.46 - Mixed incontinence (2) Lower urinary tract symptoms (LUTS): Code(s): R39.9 - Unspecified symptoms and signs involving the genitourinary system Plan In office urinalysis results reviewed with the patient today; as noted above. PVR 0 mL. Discussed at length potential causes for lower urinary tract symptoms patient is experiencing. Discussed bladder triggers/irritants. Will obtain retroperitoneal ultrasound for further assessment evaluation. Start oxybutynin as discussed and prescribed. Discussed, educated, and stressed the importance of managing diabetes for improvement lower urinary tract symptoms as well as overall health and well- being. Discussed interstitial cystitis and or post UTI like syndrome. Discussed pelvic floor therapy. Discussed possible near future in office cystoscopy and or urodynamics for further assessment evaluation. Follow-up in 6-8 weeks with imaging to be completed prior and PVR at next office visit; or sooner with any issues, concerns, and or questions. Orders: Orders AMB Post Void Residual by ultrasound 01/07/24 R39.89 - Other symptoms and signs involving the genitourinary system AMB Urinalysis Automated 01/07/24 Z13.9 - Encounter for screening, unspecified US retroperitoneal comp 01/07/24 N39.46 - Mixed incontinence, R39.9 - Unspecified symptoms and signs involving the genitourinary system Medications: New oxybutynin chloride ER 10 mg PO DAILY 30 days 30 tabs 1RF N32.81 - Overactive bladder Patient Instructions: The patient had an opportunity to ask questions regarding the treatment plan. All questions were answered. Physical exam, labs, and imaging were discussed and reviewed in detail. As well as risks, benefits, and discussion of treatment choices. No major barriers to understanding were identified. The patient expressed understanding and agreement with the above treatment plan. The patient was made aware they should contact our office by phone for worsening of their current condition, the appearance of new symptoms, or with any questions or concerns. Compliance is encouraged with any medications and follow up testing that is ordered. It is a privilege to be allowed the opportunity to participate in? your urological care.? Again, if you have any questions or concerns If you have any questions or concerns please do not hesitate to contact me. The office is [phone]. This note is constructed using voice recognition software. While every effort has been made to ensure accuracy echo technician errors may have been included. Yours sincerely, SOCORRO Russell Coding Level of Care Code New Pt Level 4 (26888) Diagnoses Mixed stress and urge urinary incontinence N39.46 Lower urinary tract symptoms (LUTS) R39.9 CPT Codes Post Residual Void - PVR CPT Code: 85145-Nwsk Void Residual by ultrasound ([id number])
== END 2024-01-07 13:50 | disposition home or self-care (01) ==
PROVIDERS: PCP Family Medicine; Referring Provider Family Medicine; Visit Provider Nurse Practitioner Family
DX: Z13.9 Encounter for screening, unspecified (principal)
CPT/HCPCS: 99204

== ENCOUNTER → 2024-01-07 12:46 | Outpatient (BNVA) | payer BC, SELFPAY | PROVIDERS: PCP Family Medicine; Visit Provider Nurse Practitioner Family | DX: N39.46 Mixed incontinence (principal); R39.9 Unspecified symptoms and signs involving the genitourinary system | CPT/HCPCS: 51798; 81003 ==

== ENCOUNTER 2024-01-13 08:51 | Outpatient (REF) | payer BC, SELFPAY ==
[2024-01-13 11:23] LABS: MANUAL DIFF FLAG NO
[2024-01-13 11:40] LABS: Basophils Absolute Auto 0.1 X10*3/uL (0.0-0.2); Basophils Percent Auto 0.4 % (0-2); Eosinophils Absolute Auto 0.3 X10*3/uL (0.0-0.4); Eosinophils Percent Auto 1.9 % (0-4); Hematocrit 40.4 % (37.0-47.0); Hemoglobin 12.6 g/dl (12.0-16.0); Imm Gran Abs Auto 0.07 X10*3/uL (0.00-0.03); Imm Gran Pct Auto 0.5 % (0.0-0.4); Lymphocytes Absolute Auto 2.7 X10*3/uL (1.2-4.9); Lymphocytes Percent Auto 19.6 % (20-40); Mean Corpuscular HGB Conc 31.2 g/dl (31.0-35.0); Mean Corpuscular Hemoglobin 24.8 pg (27.0-33.0); Mean Corpuscular Volume 79.4 fL (80.0-98.0); Mean Platelet Volume 9.3 fL (9.4-12.3); Monocytes Absolute Auto 0.7 X10*3/uL (0.1-1.2); Monocytes Percent Auto 5.3 % (2-11); Neutrophils Absolute Auto 9.8 x10*3/uL (2.0-8.3); Neutrophils Percent Auto 72.3 % (45-73); Platelet Count 443 X10*3/uL (160-400); Red Blood Count 5.09 X10*6/uL (4.20-5.50); Red Cell Distribution Width 16.7 % (11.0-16.0); White Blood Count 13.6 X10*3/uL (4.8-10.8)
[2024-01-13 12:02] LABS: Alanine Aminotransferase 12 U/L (0-31); Alkaline Phosphatase 68 U/L (39-117); Anion Gap 9 (12-20); Aspartate Amino Transferase 11 U/L (5-31); Bilirubin Total 0.4 mg/dL (0.0-1.0); Blood Urea Nitrogen 12 mg/dL (9-16); Calcium 9.4 mg/dL (8.4-10.2); Carbon Dioxide 28 mmol/L (22-29); Chloride 105 mmol/L (96-108); Estimated Glomerular Filt Rate > 60; Glucose Fasting 115 mg/dL (60-99); Potassium 4.1 mmol/L (3.3-5.1); Sodium 138 mmol/L (135-145); Total Protein 7.7 g/dL (6.5-8.0)
== END 2024-01-13 08:52 | disposition home or self-care (01) ==
LOC: HO.WFDLDS 08:51
PROVIDERS: Visit Provider Family Medicine
DX: Z00.00 Encounter for general adult medical examination without abnormal findings (principal); E11.9 Type 2 diabetes mellitus without complications
CPT/HCPCS: 36415; 80053; 85025

== ENCOUNTER 2024-02-09 16:07 | Outpatient (REF) | payer BC, SELFPAY ==
--- NOTE | ~2024-02-09 | US_ITS ---
EXAMINATION: US RETROPERITONEAL COMPLETE (RENAL) CLINICAL INFORMATION: Mixed incontinence. COMPARISON: CT abdomen and pelvis 01/06/2018. TECHNIQUE: Real-time imaging of the kidneys and bladder. FINDINGS: RIGHT KIDNEY: 12.8 x 4.9 x 4.6 cm (SAG x AP x TRV). The kidney is normal in size, contour, and echogenicity. Renal cortical thickness is normal. No calculi or focal parenchymal lesions. No hydronephrosis. LEFT KIDNEY: 12.8 x 5.4 x 3.8 cm (SAG x AP x TRV). The kidney is normal in size, contour, and echogenicity. Renal cortical thickness is normal. No calculi or focal parenchymal lesions. No hydronephrosis. BLADDER: Well distended and normal. Bilateral ureteral jets are demonstrated. Prevoid bladder volume is 214.5 mL. Postvoid bladder volume is 23.1 mL. US/US retroperitoneal comp IMPRESSION: Post void bladder residual of 23 mL No hydronephrosis.
== END 2024-02-09 16:08 | disposition home or self-care (01) ==
LOC: HO.US 16:07
PROVIDERS: PCP Family Medicine; Visit Provider Nurse Practitioner Family
DX: N39.46 Mixed incontinence (principal); R39.9 Unspecified symptoms and signs involving the genitourinary system
CPT/HCPCS: 76770

== ENCOUNTER 2024-02-17 09:12 | Outpatient (AMB) | payer BC, SELFPAY ==
[2024-02-17 09:20] VITALS: BP 126/68; PULSE 86; O2SAT 98; BMI 34.2
--- NOTE | 2024-02-17 09:20 | MHC.PC.OV ---
Vital Signs 02/17/24 09:20 Height 5 ft 4 in Weight 199 lb 8 oz BMI 34.2 BP 126/68 Blood Pressure Location Lt brachial Position Sitting Pulse 86 Pulse Source Pulse Oximeter Pulse Oximetry (%) 98 Oxygen Delivery Method Room Air Intake Visit Reasons: f/u diabetes Intake Note: Patient is here for follow up on diabetes. Allergies azithromycin Allergy (Unknown, Verified 02/17/24 09:21) stomach upset Tobacco use date assessed: 02/17/24 Dental Screening Dental Screen Date: 11/18/23 HPI f/u diabetes HPI Details Patient?presents?to?follow-up?diabetes A1c?was?over?9%?and?now?6.1%. Tolerating?Ozempic?and?metformin Using?continuous?glucose?monitoring Working?on?diabetic?diet PFSH Medical History Diabetes delivery delivered Asthma Surgical History H/O tubal ligation Family History (Updated 02/17/24 @ 09:24 by Lien Patterson CMA) Mother Breast cancer Sister Breast cancer Family/Other Leukemia Social History Household Members: Children [facility] Are you a primary hiv/aids care nurse to a significant other at home: No Do you presently have visiting nurse or other home services: No 75 years or older and lives alone: No Alcohol intake: current Patient Tobacco Use Status: Never used Tobacco e-Cigarette/Vaping Use: Never Used service: No Current occupational status: employed 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 Cognitive needs: No Hearing needs: No Vision needs: Yes (Patient wears transition lenses) Female Reproductive History Menstrual Age of Menarche: 16 Questionnaire Thrive Questionnaire Date Thrive assessed: 11/18/23 ROBERTO-7 AMB Questionnaire ROBERTO-7 Date ROBERTO - 7 assessed: 11/18/23 Source: Developed by Drs. Lenin Ortiz, Felicia Pitts, Amador Rodarte and colleagues, with an educational marichuy from [email or web address]. Review of Systems Const Details: CONSTITUTIONAL no fever. no fatigue. no chills. CARDIOVASCULAR no chest pain. no palpitations. RESPIRATORY no cough. no shortness of breath. no trouble breathing. no wheezing. PSYCHIATRIC no anxiety. no depression. NEUROLOGIC no incoordination. no headache. no weakness. no dizziness. no gait abnormality. Physical exam (Primary Care) Vital Signs: Last Vital Signs Pulse 86 02/17/24 09:20 BP 126/68 02/17/24 09:20 Pulse Ox 98 02/17/24 09:20 Oxygen Delivery Method Room Air 02/17/24 09:20 BMI result Body Mass Index 34.2 Tobacco/Smoking Status: Tobacco use Status Tobacco use date assessed 02/17/24 02/17/24 09:25 Patient Tobacco Use Status Never used Tobacco 02/17/24 09:25 e-Cigarette/Vaping Use Never Used 02/17/24 09:25 Thrive Assessment: Date of Thrive Assessment Date Thrive assessed 11/18/23 02/17/24 09:25 Const Other: General Appearance: no apparent distress, pleasant. Heart: RRR, no murmurs, clicks or rubs, no gallops. Lungs: clear to auscultation. Extremities: no edema. Neurologic Exam: alert and oriented x3, gait normal, Psych: Normal affect Results AMB Hemoglobin A1c AMB Hemoglobin A1c 6.1 % Last Edit by Lien Patterson CMA on 02/17/24 09:42 Results Reviewed Results Reviewed: Laboratory Last Values Hgb A1c (Clinic) 6.1 % (4.0-6.0) H 02/17/24 09:41 Assessment and Plan Assessment & Plan (1) Diabetes: Code(s): E11.9 - Type 2 diabetes mellitus without complications Plan: A1c?shows?good?control.??Goal?is?less?than?7.0% Continue?current?medication?regimen?and?diabetic?diet Rechecking?lipids?at?next?visit?as?her?LDL?cholesterol?is?greater?than?100 (2) Thrombocytosis: Code(s): D75.839 - Thrombocytosis, unspecified Plan: Mild?thrombocytosis Following?this Recheck?CBC (3) Mixed stress and urge urinary incontinence: Code(s): N39.46 - Mixed incontinence Plan: Ongoing?stress?urge?incontinence. Trial?of?oxybutynin?but?this?does?not?seem?to?be?working?well Follow-up?with?urology Orders: Orders Comprehensive [place]. Panel Fast Today E11.9 - Type 2 diabetes mellitus without complications, Z00.00 - Encounter for general adult medical examination without abnormal findings IRON PROFILE Today D75.839 - Thrombocytosis, unspecified AMB Hemoglobin A1c Today Z13.9 - Encounter for screening, unspecified Lipid Panel Today E11.9 - Type 2 diabetes mellitus without complications, Z00.00 - Encounter for general adult medical examination without abnormal findings Complete Blood Count Auto Diff Today D75.839 - Thrombocytosis, unspecified, Z00.00 - Encounter for general adult medical examination without abnormal findings Medications: Refilled semaglutide (Ozempic) for 4 weeks 0.5 mg (0.736 mL) subcut QWEEK 28 days 2.944 mL 3RF D75.839 - Thrombocytosis, unspecified Coding Level of Care Code Est Pt Level 4 (96333) Diagnoses Diabetes E11.9 Thrombocytosis D75.839 Mixed stress and urge urinary incontinence N39.46
== END 2024-02-17 10:28 | disposition home or self-care (01) ==
PROVIDERS: PCP Family Medicine; Visit Provider Family Medicine
DX: E11.9 Type 2 diabetes mellitus without complications (principal); D75.839 Thrombocytosis, unspecified; N39.46 Mixed incontinence
CPT/HCPCS: 83036; 99214

== ENCOUNTER 2024-02-23 15:43 | Outpatient (AMB) | payer BC, SELFPAY ==
--- NOTE | 2024-02-23 15:49 | A.OFFVIS_ITS ---
Intake Visit Reasons: follow up/US(set) Intake Note: Patient presents for follow up visit for bladder pressure and imaging Imaging Complete: 02/09/24 Urology Medications: none Blood Thinner: none PVR: 0ml's Music Cataloguer Required: No Accompanied by: Self / Same As Patient Allergies azithromycin Allergy (Unknown, Verified 02/23/24 19:33) stomach upset Medication List - Last Reconciled 02/23/24 by SOCORRO Russell albuterol sulfate 90 mcg/actuation (ProAir HFA) 2 puffs inhalation Q4-6H PRN 30 days blood sugar diagnostic (FreeStyle Lite Strips) DX: E11.9, test blood sugar three times a day, 30 days blood-glucose meter (FreeStyle Lite Meter kit) DX: E11.9, test blood sugar 4 times a day, duration 999 days blood-glucose meter,continuous (Dexcom G7 Steam Gigger) As directed, 999 days blood-glucose sensor (Dexcom G7 Sensor device) As directed, 28 days fluticasone propionate 50 mcg/actuation (Flonase Allergy Relief) 1 spray intranasal Q12H 30 days lancets (FreeStyle Lancets) Test BS 3 times a day metformin 500 mg PO BID 30 days mirabegron ER (Myrbetriq) 25 mg PO DAILY 30 days semaglutide (Ozempic) 0.5 mg (0.736 mL) subcut QWEEK 28 days HPI Comments Details: Rowena is a very pleasant 53-year-old female patient of Dr. Howard. She has a past medical history of asthma and diabetes. She presents to the office today for follow-up. Of note, patient was seen approximately 2 months ago as a new patient for ongoing lower urinary tract symptoms at which time a retroperitoneal ultrasound was ordered for further assessment evaluation in the patient was started on 10 mg of oxybutynin daily. In discussion with the patient today she reports noting improvement in urinary urgency and frequency with 10 mg of oxybutynin however continued with feelings of bladder pressure and incomplete bladder emptying. Recent retroperitoneal ultrasound results reviewed with the patient today. Bilateral kidneys with no calculi, lesions, and or hydronephrosis. The bladder is well distended and normal. Bilateral ureteral jets are demonstrated. Pre void bladder volume is approximately 215 mL. Postvoid bladder volume is approximately 20 mL. In office urinalysis results reviewed with the patient today within normal limits. PVR 0 mL. She reports feeling lower urinary tract symptoms are somewhat intermittent however when they are present they are extremely bothersome. She reports feeling episodes of bladder pressure tend to happen more prior to bed. She reports being premenopausal and has not had her menses and approximately 5 months. 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 She otherwise denies hematuria, foul smelling urine, changes to urinary stream, flank pain, fever, and or chills. She also reports mixed incontinence. She otherwise denies any other issues or concerns at this time. [facility] Medical History Diabetes delivery delivered Asthma Surgical History H/O tubal ligation Family History Mother Breast cancer Sister Breast cancer Family/Other Leukemia Social History Household Members: Children [facility] Are you a primary care transitions nurse to a significant other at home: No Do you presently have visiting nurse or other home services: No 75 years or older and lives alone: No Alcohol intake: current Patient Tobacco Use Status: Never used Tobacco e-Cigarette/Vaping Use: Never Used service: No Current occupational status: employed 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[employer] Cognitive needs: No Hearing needs: No Vision needs: Yes (Patient wears transition lenses) Female Reproductive History Menstrual Age of Menarche: 16 Review of Systems Const Reports no additional complaints Eyes Reports no additional complaints ENT Reports no additional complaints Card Reports no additional complaints Resp Reports as per HPI GI Reports no additional complaints Reports as per HPI Musc Reports no additional complaints Neuro Reports no additional complaints Psych Reports no additional complaints Endo Reports as per HPI Kt/Lymph Reports no additional complaints Aller/Immun Reports no additional complaints Physical Exam Const General: cooperative, healthy appearing, comfortable, no acute distress, well developed, alert and awake Orientation/consciousness: patient oriented x3 Limitations: no limitations HEENT Head: Yes normal to inspection, Yes normocephalic and Yes atraumatic Ears: hearing grossly normal bilaterally Eyes General: appearance normal, both eyes and all related structures Neck Neck: Yes normal visual inspection and Yes trachea midline Chest Chest palpation & inspection: normal inspection of the chest Resp Effort & Inspection: normal respiratory effort and able to speak in complete sentences Cardio Rate: regular rate GI Inspection: Yes normal to inspection General: Yes no CVA tenderness Back/Spine/Pelvis Back: no CVA tenderness Skin General skin exam: no rashes or lesions noted Neuro General: patient oriented x3 Extrem General: Yes normal to inspection Psych Appearance: grossly normal and well kempt Mental Status: mental status grossly normal Speech and movement: Normal speech and movement present and Clear speech present Affect: normal affect Attitude: cooperative Thought process: Normal thought process present Thought content: Normal thought content present Insight: Fair insight present (Psych) Judgement: Fair judgement present (Psych) Office Procedures Post Void Residual Post Residual Void Post Void Residual (PVR): 0 55285-Dolm Void Residual by ultrasound Results AMB Urinalysis, Automated UA Leukoctes 0 Ama/uL Last Edit by [employer] on 02/23/24 16:18 UA Nitrite Negative Last Edit by [employer] on 02/23/24 16:18 UA Urobilinogen 0.2 mg/dL Last Edit by [employer] Love QC on 02/23/24 16:18 UA Protein 15 mg/dL Last Edit by [employer] on 02/23/24 16:18 UA pH 6.0 Last Edit by [employer] on 02/23/24 16:18 UA Blood 0 Rolando/uL Last Edit by [employer] on 02/23/24 16:18 UA Specific [place] 1.025 Last Edit by [employer] on 02/23/24 16:18 UA Ketone Negative Last Edit by [employer] on 02/23/24 16:18 UA Bilirubin 0 mg/dL Last Edit by [employer] on 02/23/24 16:18 UA Glucose 0 mg/dL Last Edit by [employer] on 02/23/24 16:18 Results Reviewed Results Reviewed: Laboratory Last Values Urine pH (Auto) 6.0 02/23/24 16:16 Specific [place] (Auto) 1.025 02/23/24 16:16 Urine Protein (Auto) 15 mg/dL 02/23/24 16:16 Glucose (UA)(Auto) 0 mg/dL 02/23/24 16:16 Urine Ketones (Auto) Negative 02/23/24 16:16 Urine Blood (Auto) 0 Rolando/uL 02/23/24 16:16 Urine Nitrite (Auto) Negative 02/23/24 16:16 Urine Bilirubin (Auto) 0 mg/dL 02/23/24 16:16 Urine Urobilinogen (Auto) 0.2 mg/dL 02/23/24 16:16 Leukocyte Esterase (Auto) 0 Ama/uL 02/23/24 16:16 Date of Service: 02/09/24 Procedure(s): US retroperitoneal comp TECHNIQUE: Real-time imaging of the kidneys and bladder. FINDINGS: RIGHT KIDNEY: 12.8 x 4.9 x 4.6 cm (SAG x AP x TRV). The kidney is normal in size, contour, and echogenicity. Renal cortical thickness is normal. No calculi or focal parenchymal lesions. No hydronephrosis. LEFT KIDNEY: 12.8 x 5.4 x 3.8 cm (SAG x AP x TRV). The kidney is normal in size, contour, and echogenicity. Renal cortical thickness is normal. No calculi or focal parenchymal lesions. No hydronephrosis. BLADDER: Well distended and normal. Bilateral ureteral jets are demonstrated. Prevoid bladder volume is 214.5 mL. Postvoid bladder volume is 23.1 mL. IMPRESSION: Post void bladder residual of 23 mL No hydronephrosis. Assessment & Plan Assessment & Plan (1) Mixed stress and urge urinary incontinence: Code(s): N39.46 - Mixed incontinence Category: Medical (2) Lower urinary tract symptoms (LUTS): Code(s): R39.9 - Unspecified symptoms and signs involving the genitourinary system Category: Medical Plan In office urinalysis results reviewed with the patient today; as noted above. PVR 0 mL. Discussed at length potential causes for lower urinary tract symptoms patient is experiencing. Discussed bladder triggers/irritants. Recent retroperitoneal ultrasound results reviewed with the patient today; as noted above. Stop oxybutynin. Start Myrbetriq 25 mg daily as discussed and prescribed. Discussed, educated, and stressed the importance of managing diabetes for improvement lower urinary tract symptoms as well as overall health and well- being. Discussed interstitial cystitis and or post UTI like syndrome. Discussed pelvic floor therapy; she is performing exercises at home Discussed possible near future in office cystoscopy and or urodynamics for further assessment evaluation. Follow-up 1-3 months with PVR or sooner with any issues, concerns, and or questions. Orders: Orders AMB Urinalysis Automated Today Z13.9 - Encounter for screening, unspecified AMB Post Void Residual by ultrasound Today R39.9 - Unspecified symptoms and signs involving the genitourinary system Medications: New mirabegron ER (Myrbetriq) 25 mg PO DAILY 30 days 30 tabs 3RF N32.81 - Overa ctive bladder, R35.1 - Nocturia Discontinued oxybutynin chloride ER Discontinued Reason: Doctor's Order 10 mg PO DAILY 30 days 30 tabs 1RF N 32.81 - Overactive bladder Patient Instructions: The patient had an opportunity to ask questions regarding the treatment plan. All questions were answered. Physical exam, labs, and imaging were discussed and reviewed in detail. As well as risks, benefits, and discussion of treatment choices. No major barriers to understanding were identified. The patient expressed understanding and agreement with the above treatment plan. The patient was made aware they should contact our office by phone for worsening of their current condition, the appearance of new symptoms, or with any questions or concerns. Compliance is encouraged with any medications and follow up testing that is ordered. It is a privilege to be allowed the opportunity to participate in? your urological care.? Again, if you have any questions or concerns If you have any questions or concerns please do not hesitate to contact me. The office is [phone]. This note is constructed using voice recognition software. While every effort has been made to ensure accuracy automatic folder seamer errors may have been included. Yours sincerely, SOCORRO Russell Coding Level of Care Code Est Pt Level 4 (13662) Diagnoses Mixed stress and urge urinary incontinence N39.46 Lower urinary tract symptoms (LUTS) R39.9 CPT Codes Post Residual Void - PVR CPT Code: 05309-Xuts Void Residual by ultrasound ([id number])
== END 2024-02-23 16:21 | disposition home or self-care (01) ==
PROVIDERS: PCP Family Medicine; Visit Provider Nurse Practitioner Family
DX: N39.46 Mixed incontinence (principal); R39.9 Unspecified symptoms and signs involving the genitourinary system; Z13.9 Encounter for screening, unspecified
CPT/HCPCS: 99214

== ENCOUNTER → 2024-02-23 15:43 | Outpatient (BNVA) | payer BC, SELFPAY | PROVIDERS: PCP Family Medicine; Visit Provider Nurse Practitioner Family | DX: N39.46 Mixed incontinence (principal); R39.9 Unspecified symptoms and signs involving the genitourinary system; N32.81 Overactive bladder; R35.1 Nocturia | CPT/HCPCS: 51798; 81003 ==

== ENCOUNTER 2024-04-26 08:45 | Outpatient (AMB) | payer BC, SELFPAY ==
--- NOTE | 2024-04-26 08:37 | MHC.OFFVIS ---
Intake Visit Reasons: 2m follow up Intake Note: Patient presents for 2m follow up/incontinence/luts Urology Medications: myrbetriq Blood Thinner: none Civil Design Technician Required: No Accompanied by: Self / Same As Patient Allergies azithromycin Allergy (Unknown, Verified 04/26/24 09:09) stomach upset Medication List - Last Reconciled 04/26/24 by Sydney Delarosa HANDKERCHIEF FOLDER- albuterol sulfate 90 mcg/actuation 2 puffs inhalation Q4-6H PRN 30 days blood sugar diagnostic (FreeStyle Lite Strips) DX: E11.9, test blood sugar three times a day, 30 days blood-glucose meter (FreeStyle Lite Meter kit) DX: E11.9, test blood sugar 4 times a day, duration 999 days blood-glucose meter,continuous (Dexcom G7 Head Lineman) As directed, 999 days blood-glucose sensor (Dexcom G7 Sensor device) As directed, 28 days fluticasone propionate 50 mcg/actuation (Flonase Allergy Relief) 1 spray intranasal Q12H 30 days lancets (FreeStyle Lancets) Test BS 3 times a day metformin 500 mg PO BID 30 days mirabegron ER (Myrbetriq) 25 mg PO DAILY 30 days semaglutide 1 mg (0.375 mL) subcut QWEEK 28 days HPI Comments Details: Rowena is a very pleasant 53-year-old female patient of Dr. Howard. She has a past medical history of asthma and diabetes. She is being follow-up on today via telehealth for her lower urinary tract symptoms. Of note, patient was seen approximately 2 months ago at which time her oxybutynin was discontinued and she was started on Myrbetriq 25 mg daily. She reports feeling this has been extremely helpful in her lower urinary tract symptoms of bladder pressure and feeling of incomplete bladder emptying. Previous workup has included a retroperitoneal ultrasound noting bilateral kidneys with no calculi, lesions, and or hydronephrosis. The bladder is well distended and normal. Bilateral ureteral jets are demonstrated. Pre void bladder volume is approximately 215 mL. Postvoid bladder volume is approximately 20 mL. She otherwise denies hematuria, foul smelling urine, changes to urinary stream, flank pain, fever, and or chills. She continues with pelvic floor exercises at home. She otherwise denies any other issues or concerns at this time. [facility] Medical History Diabetes delivery delivered Asthma Surgical History H/O tubal ligation Family History Mother Breast cancer Sister Breast cancer Family/Other Leukemia Social History Household Members: Children Housing: Condominium Are you a primary healthcare administration internship to a significant other at home: No Do you presently have visiting nurse or other home services: No 75 years or older and lives alone: No Alcohol intake: current Patient Tobacco Use Status: Never used Tobacco e-Cigarette/Vaping Use: Never Used service: No Current occupational status: employed 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[employer] Cognitive needs: No Hearing needs: No Vision needs: Yes (Patient wears transition lenses) Female Reproductive History Menstrual Age of Menarche: 16 Review of Systems Const Reports no additional complaints Eyes Reports no additional complaints ENT Reports no additional complaints Card Reports no additional complaints Resp Reports as per HPI GI Reports no additional complaints Reports as per HPI Musc Reports no additional complaints Neuro Reports no additional complaints Psych Reports no additional complaints Endo Reports as per HPI Kt/Lymph Reports no additional complaints Aller/Immun Reports no additional complaints Physical Exam Const General: cooperative Orientation/consciousness: patient oriented x3 Resp Effort & Inspection: able to speak in complete sentences Neuro General: patient oriented x3 Psych Mental Status: mental status grossly normal Speech and movement: Clear speech present Affect: normal affect Attitude: cooperative Thought process: Normal thought process present Thought content: Normal thought content present Insight: Fair insight present (Psych) Judgement: Fair judgement present (Psych) Telehealth Telehealth Telehealth Platform: [facility] Location of provider rendering services: practice address Location of patient: address on file Patient Identification confirmed using: Name, : Yes Telehealth method: voice only Patient verbally consented to treatment: Yes Patient verbally consented to billing insurance company: Yes Patient informed of any privacy concerns related to visit: Yes Minutes spent on Phone/Video with Pt.: 15 Assessment & Plan Assessment & Plan (1) Mixed stress and urge urinary incontinence: Code(s): N39.46 - Mixed incontinence Category: Medical (2) Lower urinary tract symptoms (LUTS): Code(s): R39.9 - Unspecified symptoms and signs involving the genitourinary system Category: Medical Plan Continue Myrbetriq 25 mg daily as discussed and prescribed; refill provided. Discussed bladder triggers/irritants. Discussed, educated, and stressed the importance of managing diabetes for improvement lower urinary tract symptoms as well as overall health and well-being. Continue pelvic floor therapy; she is performing exercises at home. Discussed possible near future in office cystoscopy and or urodynamics if symptoms arise. Follow-up in 6 months with PVR; or sooner with any issues, concerns, and or questions. Patient Instructions: The patient had an opportunity to ask questions regarding the treatment plan. All questions were answered. Physical exam, labs, and imaging were discussed and reviewed in detail. As well as risks, benefits, and discussion of treatment choices. No major barriers to understanding were identified. The patient expressed understanding and agreement with the above treatment plan. The patient was made aware they should contact our office by phone for worsening of their current condition, the appearance of new symptoms, or with any questions or concerns. Compliance is encouraged with any medications and follow up testing that is ordered. It is a privilege to be allowed the opportunity to participate in? your urological care.? Again, if you have any questions or concerns If you have any questions or concerns please do not hesitate to contact me. The office is [phone]. This note is constructed using voice recognition software. While every effort has been made to ensure accuracy therapeutic recreation assistant errors may have been included. Yours sincerely, SOCORRO Russell Coding Level of Care Code Tele Est Pt Level 3 (27621) Diagnoses Mixed stress and urge urinary incontinence N39.46 Lower urinary tract symptoms (LUTS) R39.9
== END 2024-04-26 09:15 | disposition home or self-care (01) ==
LOC: HO.HUSH 08:45
PROVIDERS: PCP Family Medicine; Visit Provider Nurse Practitioner Family
DX: N39.46 Mixed incontinence (principal); R39.9 Unspecified symptoms and signs involving the genitourinary system
CPT/HCPCS: 99442

== ENCOUNTER → 2024-04-26 08:45 | Outpatient (BNVA) | payer BC, SELFPAY | PROVIDERS: PCP Family Medicine; Visit Provider Nurse Practitioner Family ==

== ENCOUNTER 2024-05-09 07:52 | Outpatient (REF) | payer BC, SELFPAY ==
[2024-05-09 11:53] LABS: MANUAL DIFF FLAG NO
[2024-05-09 11:59] LABS: Basophils Absolute Auto 0.1 X10*3/uL (0.0-0.2); Basophils Percent Auto 0.7 % (0-2); Eosinophils Absolute Auto 0.2 X10*3/uL (0.0-0.4); Eosinophils Percent Auto 1.6 % (0-4); Hematocrit 38.7 % (37.0-47.0); Imm Gran Abs Auto 0.04 X10*3/uL (0.00-0.03); Imm Gran Pct Auto 0.4 % (0.0-0.4); Lymphocytes Absolute Auto 2.5 X10*3/uL (1.2-4.9); Lymphocytes Percent Auto 24.9 % (20-40); Mean Corpuscular Hemoglobin 24.6 pg (27.0-33.0); Mean Corpuscular Volume 79.5 fL (80.0-98.0); Mean Platelet Volume 9.1 fL (9.4-12.3); Monocytes Absolute Auto 0.8 X10*3/uL (0.1-1.2); Monocytes Percent Auto 7.5 % (2-11); Neutrophils Absolute Auto 6.4 x10*3/uL (2.0-8.3); Neutrophils Percent Auto 64.9 % (45-73); Platelet Count 440 X10*3/uL (160-400); Red Blood Count 4.87 X10*6/uL (4.20-5.50); Red Cell Distribution Width 17.1 % (11.0-16.0); White Blood Count 9.9 X10*3/uL (4.8-10.8)
[2024-05-09 14:15] LABS: Alanine Aminotransferase 13 U/L (0-31); Albumin Level 3.9 g/dL (3.5-5.0); Alkaline Phosphatase 59 U/L (39-117); Anion Gap 11 (12-20); Aspartate Amino Transferase 11 U/L (5-31); Bilirubin Total 0.2 mg/dL (0.0-1.0); Blood Urea Nitrogen 10 mg/dL (9-16); Calcium 9.4 mg/dL (8.4-10.2); Carbon Dioxide 26 mmol/L (22-29); Chloride 106 mmol/L (96-108); Cholesterol 188 mg/dL (<200); Estimated Glomerular Filt Rate > 60; Glucose Fasting 70 mg/dL (60-99); HDL Cholesterol 38 mg/dL (>40); Iron 36 mcg/dL (30-160); LDL Cholesterol Calculated 132 mg/dL (<100); Percent Iron Saturation 12 % (15-50); Potassium 4.4 mmol/L (3.3-5.1); Sodium 139 mmol/L (135-145); Total Iron Binding Capacity 298 mcg/dL (228-428); Total Protein 7.6 g/dL (6.5-8.0); Triglycerides 90 mg/dL (<150); Unsaturated Iron Binding 262 ug/dL
== END 2024-05-09 07:53 | disposition home or self-care (01) ==
LOC: HO.WFDLDS 07:52
PROVIDERS: Visit Provider Family Medicine
DX: Z00.00 Encounter for general adult medical examination without abnormal findings (principal); D75.839 Thrombocytosis, unspecified; E11.9 Type 2 diabetes mellitus without complications
CPT/HCPCS: 36415; 80053; 80061; 83540; 85025

== ENCOUNTER 2024-05-15 11:23 | Outpatient (AMB) | payer BC, SELFPAY ==
--- NOTE | 2024-05-15 11:29 | A.OFFPC_ITS ---
Vital Signs 05/15/24 11:36 Height 5 ft 6 in Weight 194 lb 4 oz BMI 31.3 BP 110/80 Blood Pressure Location Lt brachial Position Sitting Respiration 16 Pulse 79 Pulse Source Pulse Oximeter Temp 98 F Temp Source Tympanic Pulse Oximetry (%) 98 Oxygen Delivery Method Room Air Intake Visit Reasons: f/u diabetes Intake Note: follow up for diabetes Allergies azithromycin Allergy (Unknown, Verified 05/15/24 11:34) stomach upset Medication List - Last Reconciled 05/15/24 by Graham Howard MD albuterol sulfate 90 mcg/actuation 2 puffs inhalation Q4-6H PRN 30 days blood sugar diagnostic (FreeStyle Lite Strips) DX: E11.9, test blood sugar three times a day, 30 days blood-glucose meter (FreeStyle Lite Meter kit) DX: E11.9, test blood sugar 4 times a day, duration 999 days blood-glucose meter,continuous (Dexcom G7 Spray Crew) As directed, 999 days blood-glucose sensor (Dexcom G7 Sensor device) As directed, 28 days fluticasone propionate 50 mcg/actuation (Flonase Allergy Relief) 1 spray intranasal Q12H 30 days lancets (FreeStyle Lancets) Test BS 3 times a day metformin 500 mg PO BID 30 days mirabegron ER (Myrbetriq) 25 mg PO DAILY 30 days semaglutide 1 mg (0.375 mL) subcut QWEEK 28 days Tobacco use date assessed: 02/17/24 Dental Screening Dental Screen Date: 11/18/23 HPI f/u diabetes HPI Details 53 y/o female presents to f/u diabetes a nd lipids. Last A1c 02/17/24 6.1%. She is on ozempic and metformin. A1c today 05/15/24 is 5.9%. Labs drawn 05/09/24. Reviewed labs with pt. Triglycerides 90. TC 188. LDL 132. HDL low at 38. Mild microcytosis. Pt requests a note for bladder spasms. HPI Comments History of Present Illness Details Documentation assistance for Graham Howard MD, was provided by Daniel Bond,? Central Communications Specialist on 05/15/2024 at 11:46 AM EST. I, Dr. Howard, have read, observed, and verified documentation. [facility] Medical History Diabetes delivery delivered Asthma Surgical History H/O tubal ligation Family History Mother Breast cancer Sister Breast cancer Family/Other Leukemia Social History Household Members: Children Housing: Condominium Are you a primary resident care technician to a significant other at home: No Do you presently have visiting nurse or other home services: No 75 years or older and lives alone: No Alcohol intake: current Patient Tobacco Use Status: Never used Tobacco e-Cigarette/Vaping Use: Never Used service: No Current occupational status: employed 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 Lenin Ortiz, Felicia Pitts, Amador Rodarte and colleagues, with an educational marichuy from [employer]. Review of Systems Const Denies chills, Denies fatigue, Denies fever(s), Denies headache(s) and Denies weakness ENT Denies dizziness and Denies headache(s) Card Denies dyspnea Resp Denies cough, Denies dyspnea, Denies wheezing and Denies other (shortness of breath) Musc Denies numbness and Denies tingling Neuro Denies dizziness, Denies headache(s), Denies numbness, Denies tingling and Denies weakness Psych Denies anxiety and Denies depression Endo Denies fatigue Aller/Immun Denies wheezing Physical exam (Primary Care) Vital Signs: Last Vital Signs Temp 98 F 05/15/24 11:36 Pulse 79 05/15/24 11:36 Resp 16 05/15/24 11:36 BP 110/80 05/15/24 11:36 Pulse Ox 98 05/15/24 11:36 Oxygen Delivery Method Room Air 05/15/24 11:36 BMI result Body Mass Index 31.3 Tobacco/Smoking Status: Tobacco use Status Tobacco use date assessed 02/17/24 05/15/24 11:31 Patient Tobacco Use Status Never used Tobacco 05/15/24 11:31 e-Cigarette/Vaping Use Never Used 05/15/24 11:31 Thrive Assessment: Date of Thrive Assessment Date Thrive assessed 11/18/23 05/15/24 11:31 Const General: well developed; No acute distress Nutritional Appearance: well nourished Orientation/consciousness: patient oriented x3 HENMT Head: Yes normocephalic and Yes atraumatic Eyes General: appearance normal, both eyes and all related structures Pupils: Equal, round and reactive pupils present EOM: EOMs intact bilaterally Resp Effort & Inspection: normal respiratory effort Neuro General: patient oriented x3 and gait normal Cranial nerves: Yes Equal, round and reactive pupils present Psych Affect: normal affect Assessment and Plan Assessment & Plan (1) Diabetes: Code(s): E11.9 - Type 2 diabetes mellitus without complications Plan: A1c?5.9%.??Goal?is?less?than?7.0% Good?control Continue?current?medication?regimen (2) Hypercholesterolemia: Code(s): E78.00 - Pure hypercholesterolemia, unspecified Plan: LDL?cholesterol?is?above?goal?of?less?than?100 Start?atorvastatin (3) Microcytosis: Code(s): R71.8 - Other abnormality of red blood cells Plan: Mild?RBC?microcytosis?and?also Mild?thrombocytosis - likely?reactive Iron?saturation?is?low?and?her?iron?level?is?at?the?low?end?of?normal Trial?iron Will?rech max?prior?to?next?visit?and?if?any?further?questions,?we?can?make?a?referral?to? hematology Orders: Orders Complete Blood Count Auto Diff Today R71.8 - Other abnormality of red blood cells, Z00.00 - Encounter for general adult medical examination without abnormal findings Lipid Panel Today E78.00 - Pure hypercholesterolemia, unspecified, Z00.00 - Encounter for general adult medical examination without abnormal findings Comprehensive Lynch. Panel Fast Today E78.00 - Pure hypercholesterolemia, unspecified, Z00.00 - Encounter for general adult medical examination without abnormal findings Medications: New atorvastatin 10 mg PO BEDTIME 90 days 90 tabs 3RF ferrous sulfate 325 mg PO DAILY 90 days 90 tabs 2RF Refilled blood-glucose sensor (Dexcom G7 Sensor device) As directed, 28 days 2 ea 3RF Coding Level of Care Code Est Pt Level 4 (72581) Diagnoses Diabetes E11.9 Hypercholesterolemia E78.00 Microcytosis R71.8
[2024-05-15 11:36] VITALS: BP 110/80; PULSE 79; RESP 16; TEMP 36.6; O2SAT 98; BMI 31.3
== END 2024-05-15 12:02 | disposition home or self-care (01) ==
PROVIDERS: PCP Family Medicine; Visit Provider Family Medicine
DX: E11.9 Type 2 diabetes mellitus without complications (principal); E78.00 Pure hypercholesterolemia, unspecified; R71.8 Other abnormality of red blood cells
CPT/HCPCS: 99214

== ENCOUNTER 2024-05-18 10:58 | Outpatient (REF) | payer BC, SELFPAY ==
--- NOTE | ~2024-05-18 | MM_ITS ---
EXAMINATION: MM SCREENING DIGITAL BREAST TOMOSYNTHESIS, BILATERAL CLINICAL INFORMATION: Screening. Asymptomatic. COMPARISON: Mammography: This study is compared with prior exams dating back to 2019. TECHNIQUE: Digital breast tomosynthesis is performed in both the craniocaudal and mediolateral oblique views along with computer-aided detection (CAD). Synthesized 2D images are generated from the tomosynthesis. FINDINGS: There are scattered areas of fibroglandular density (ACR BI-RADS breast composition Category b). There are no significant masses, abnormal calcifications, or other abnormalities. MM/MM tomosynthesis screening BI IMPRESSION: No mammographic evidence of malignancy. ASSESSMENT: BI-RADS BI-RADS 1 - Negative RECOMMENDATION: Routine annual mammography screening. 1 year F/U This examination should not preclude the clinical evaluation of a suspicious palpable abnormality. This patient's information was entered into a reminder system with a target due date for their next mammogram. Electronically signed by: Amber Urrutia MD 06/05/2024 04:24 PM EDT
== END 2024-05-18 10:59 | disposition home or self-care (01) ==
LOC: HO.MAMMO 10:58
PROVIDERS: PCP Family Medicine; Visit Provider Family Medicine
DX: Z12.31 Encounter for screening mammogram for malignant neoplasm of breast (principal)
CPT/HCPCS: 77063; 77067

== ENCOUNTER → 2024-05-18 11:00 | Outpatient (BNV) | payer BC, SELFPAY | PROVIDERS: PCP Family Medicine; Visit Provider Radiology Diagnostic Radiology | DX: Z12.31 Encounter for screening mammogram for malignant neoplasm of breast (principal) | CPT/HCPCS: 77063; 77067 ==

== ENCOUNTER 2024-06-20 09:57 | Outpatient (AMB) | payer BC, SELFPAY ==
--- NOTE | 2024-06-20 10:02 | A.OFFPC_ITS ---
Vital Signs 06/20/24 10:08 Height 5 ft 5 in Weight 192 lb 6 oz BMI 32.0 BP 118/72 Blood Pressure Location Rt brachial Position Sitting Respiration 14 Pulse 91 Pulse Source Pulse Oximeter Pulse Oximetry (%) 98 Oxygen Delivery Method Room Air Intake Visit Reasons: EST/blood sugar low last 36 hours Intake Note: to establish blood sugar Allergies azithromycin Allergy (Unknown, Verified 06/20/24 10:07) stomach upset Medication List - Last Reconciled 06/20/24 by Leilani Mclain, [facility] albuterol sulfate 90 mcg/actuation 2 puffs inhalation Q4-6H PRN 30 days atorvastatin 10 mg PO BEDTIME 90 days blood sugar diagnostic (FreeStyle Lite Strips) DX: E11.9, test blood sugar three times a day, 30 days blood-glucose meter (FreeStyle Lite Meter kit) DX: E11.9, test blood sugar 4 times a day, duration 999 days blood-glucose meter,continuous (Dexcom G7 Microsoft Bi Consultant) As directed, 999 days blood-glucose sensor (Dexcom G7 Sensor device) As directed, 28 days ferrous sulfate 325 mg PO DAILY 90 days fluticasone propionate 50 mcg/actuation (Flonase Allergy Relief) 1 spray i ntranasal Q12H 30 days lancets (FreeStyle Lancets) Test BS 3 times a day metformin 500 mg PO BID 30 days mirabegron ER (Myrbetriq) 25 mg PO DAILY 30 days semaglutide 1 mg (0.375 mL) subcut QWEEK 28 days Tobacco use date assessed: 02/17/24 Dental Screening Dental Screen Date: 11/18/23 HPI HPI Comments History of Present Illness Details 53-year-old female with type 2 diabetes here today with her with complaints of hypoglycemia. Reported that 3 days ago she developed significant hypoglycemia with symptoms. She is currently managed with Ozempic and metformin. She is routinely followed by her primary care provider. The last office visit note from April of 2024 was reviewed. A1c at that time was 5.9%. I repeated her A1c today and it was 5.8%, random glucose as below. I was able to review her CGM, she has have several readings less than 40 over the last 3 days, the 3 day average glucose is 84. She has recently increased her physical activity as she has not moved, she has also returned back to school. To treat her low blood sugar she is using carbohydrates and appropriate intake to treat her lows with positive effect. She is taking her metformin twice per day. However she did not take the evening dose last night or the morning dose this morning. Her last Ozempic injection was on Wednesday. Despite omission of last night's metformin and this morning metformin, she did have a low blood sugar on her way to the office today. Exam Awake alert oriented, no acute distress Anxious and tearful when talking about the hypoglycemia Abdomen is soft Plan stop ozempic and metformin. It may be lipohypertrophy from injections affecting absorption that is causing her hypoglycemia. If blood sugar > 200mg, restart Metformin 500mg with evening meal Rules of 15 encouraged RTO 2 weeks This note is constructed using voice recognition software. While every effort has been made to ensure accuracy in genetics physician, still errors may have been included Sometimes, these errors may affect the content or meaning of the given sentence . Total time spent caring for the patient today was 30 minutes. This includes time spent before the visit reviewing the chart, time spent during the visit, and time spent after the visit on documentation [facility] Medical History Diabetes delivery delivered Asthma Surgical History H/O tubal ligation Family History Mother Breast cancer Sister Breast cancer Family/Other Leukemia Social History Household Members: Children [facility] Are you a primary pet care technician to a significant other at home: No Do you presently have visiting nurse or other home services: No 75 years or older and lives alone: No Alcohol intake: current Patient Tobacco Use Status: Never used Tobacco e-Cigarette/Vaping Use: Never Used service: No Current occupational status: employed 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 Lenin Ortiz, Felicia Pitts, Amador Rodarte and colleagues, with an educational marichuy from [employer]. Physical exam (Primary Care) Vital Signs: Last Vital Signs Pulse 91 06/20/24 10:08 Resp 14 06/20/24 10:08 BP 118/72 06/20/24 10:08 Pulse Ox 98 06/20/24 10:08 Oxygen Delivery Method Room Air 06/20/24 10:08 BMI result Body Mass Index 32.0 Tobacco/Smoking Status: Tobacco use Status Tobacco use date assessed 02/17/24 06/20/24 10:04 Patient Tobacco Use Status Never used Tobacco 06/20/24 10:04 e-Cigarette/Vaping Use Never Used 06/20/24 10:04 Thrive Assessment: Date of Thrive Assessment Date Thrive assessed 11/18/23 06/20/24 10:04 Results AMB Random Glucose (hemocue) AMB Random Glucose (hemocue) 172 mg/dL Last Edit by John Chisholm MA on 06/20/24 10:18 AMB Hemoglobin A1c AMB Hemoglobin A1c 5.8 % Last Edit by John Chisholm MA on 06/20/24 10:23 Assessment and Plan Assessment & Plan (1) Type 2 diabetes mellitus with hypoglycemia: Code(s): E11.649 - Type 2 diabetes mellitus with hypoglycemia without coma Qualifiers: Diabetes mellitus complication detail: without coma Diabetes mellitus ferry terminal agent insulin use: without ferry terminal agent use Qualified Code(s): E11.649 - Type 2 diabetes mellitus with hypoglycemia without coma Orders: Orders AMB Hemoglobin A1c Today Z13.9 - Encounter for screening, unspecified AMB Random Glucose (hemocue) Today Z13.9 - Encounter for screening, unspecified Medications: Discontinued metformin Discontinued Reason: Doctor's Order 500 mg PO BID 30 days 60 tabs 1RF Coding Level of Care Code Est Pt Level 4 (71052) Complex EM visit Add On G2211 Diagnoses Type 2 diabetes mellitus with hypoglycemia without coma, without long-term current use of insulin E11.649 Diabetes mellitus complication detail: without coma Diabetes mellitus ferry terminal agent insulin use: without jail use
[2024-06-20 10:08] VITALS: BP 118/72; PULSE 91; RESP 14; O2SAT 98; BMI 32.0
== END 2024-06-20 10:35 | disposition home or self-care (01) ==
PROVIDERS: PCP Family Medicine; Visit Provider Nurse Practitioner Family
DX: Z13.9 Encounter for screening, unspecified (principal); E11.649 Type 2 diabetes mellitus with hypoglycemia without coma

== ENCOUNTER → 2024-06-20 09:57 | Outpatient (BNVA) | payer BC, SELFPAY | PROVIDERS: PCP Family Medicine | DX: E11.649 Type 2 diabetes mellitus with hypoglycemia without coma (principal) | CPT/HCPCS: 82948; 83036 ==

== ENCOUNTER 2024-07-07 12:08 | Outpatient (AMB) | payer BC, SELFPAY ==
--- NOTE | 2024-07-07 12:12 | MHC.PC.OV ---
Vital Signs 07/07/24 12:15 Height 5 ft 5 in Weight 196 lb 8 oz BMI 32.7 BP 134/83 Blood Pressure Location Lt brachial Position Sitting Respiration 15 Pulse 77 Pulse Source Pulse Oximeter Pulse Oximetry (%) 97 Oxygen Delivery Method Room Air Intake Visit Reasons: 2 weeks [address] Fatima or me thanks Intake Note: 2 week follow up Allergies azithromycin Allergy (Unknown, Verified 07/07/24 12:50) stomach upset Medication List - Last Reconciled 07/07/24 by Leilani Mclain, [facility] albuterol sulfate 90 mcg/actuation 2 puffs inhalation Q4-6H PRN 30 days atorvastatin 10 mg PO BEDTIME 90 days blood sugar diagnostic (FreeStyle Lite Strips) DX: E11.9, test blood sugar three times a day, 30 days blood-glucose meter (FreeStyle Lite Meter kit) DX: E11.9, test blood sugar 4 times a day, duration 999 days blood-glucose meter,continuous (Dexcom G7 Platform Man) As directed, 999 days blood-glucose sensor (Dexcom G7 Sensor device) As directed, 28 days ferrous sulfate 325 mg PO DAILY 90 days fluticasone propionate 50 mcg/actuation (Flonase Allergy Relief) 1 spray intranasal Q12H 30 days lancets (FreeStyle Lancets) Test BS 3 times a day mirabegron ER (Myrbetriq) 25 mg PO DAILY 30 days semaglutide 1 mg (0.375 mL) subcut QWEEK 28 days Tobacco use date assessed: 02/17/24 Dental Screening Dental Screen Date: 11/18/23 HPI HPI Comments History of Present Illness Details At the last office visit: 53-year-old female with type 2 diabetes here today with her with complaints of hypoglycemia. Reported that 3 days ago she developed significant hypoglycemia with symptoms. She is currently managed with Ozempic and metformin. She is routinely followed by her primary care provider. The last office visit note from April of 2024 was reviewed. A1c at that time was 5.9%.I repeated her A1c today and it was 5.8%, random glucose as below. I was able to review her CGM, she has have several readings less than 40 over the last 3 days, the 3 day average glucose is 84. She has recently increased her physical activity as she has not moved, she has also returned back to school. To treat her low blood sugar she is using carbohydrates and appropriate intake to treat her lows with positive effect. She is taking her metformin twice per day. However she did not take the evening dose last night or the morning dose this morning. Her last Ozempic injection was on Wednesday. Despite omission of last night's metformin and this morning metformin, she did have a low blood sugar on her way to the office today. Exam Awake alert oriented, no acute distress Anxious and tearful when talking about the hypoglycemia Abdomen is soft Plan stop ozempic and metformin. It may be lipohypertrophy from injections affecting absorption that is causing her hypoglycemia. If blood sugar > 200mg, restart Metformin 500mg with evening meal Rules of 15 encouraged RTO 2 weeks Here today for a 2 week follow up. Since last office visit she did stop her Ozempic and metformin as recommended. Since this time she reports that she had 1 or 2 episodes of hypoglycemia. She reports that 1 of the readings was about 60 mg/dL and this was shortly after stopping her medications. The 2nd 1 was about 1 week after stopping the medications. She reports that the reading at that time I was around 50 mg and occurred while she was in the grocery store. Then upon further thinking she does report that she had 1 episode of nocturnal hypoglycemia. She did take metformin twice when she had readings greater than 200 mg/dL. These both occurred in the evening. She can not correlate the middle of the night low with taking the metformin. She reports an increased appetite and weight gain since stopping the Ozempic. But otherwise she feels well. Review of CGM: 14 day GLI 6.5% Avg glucose 132 97% in range 3% high, 0% low Plan: Discuss starting her on metformin with an SGLT2 inhibitor to help her weight. However she has chronic urinary issues, perhaps interstitial cystitis. 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 Therefore I do not think SGLT2 would be the best for her. Start Metformin ER 500 mg with evening meal, HOLD if not able to eat Start WEllbutrin XL 150mg QAM to help w/ wt Repeat labs 1 week before next visit w/ Dr Fatima 07/2024, i have added on an Hga1c to be done Rules of 15 reviewed again This note is constructed using voice recognition software. While every effort has been made to ensure accuracy in financial planning consultant, still errors may have been included Sometimes, these errors may affect the content or meaning of the given sentence . Total time spent caring for the patient today was 30 minutes. This includes time spent before the visit reviewing the chart, time spent during the visit, and time spent after the visit on documentation [facility] Medical History Diabetes delivery delivered Asthma Surgical History H/O tubal ligation Family History Mother Breast cancer Sister Breast cancer Family/Other Leukemia Social History [facility]hold Members: Children [facility] Are you a primary healthcare analyst to a significant other at home: No Do you presently have visiting nurse or other home services: No 75 years or older and lives alone: No Alcohol intake: current Patient Tobacco Use Status: Never used Tobacco e-Cigarette/Vaping Use: Never Used service: No Current occupational status: employed 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 How many drinks containing alcohol do you have on a typical day when you are drinking?: 1 or 2 3. How often do you have six or more drinks on one occasion?: Never Total Score: 0 ROBERTO-7 AMB Questionnaire ROBERTO-7 Date ROBERTO - 7 assessed: 11/18/23 Source: Developed by Drs. Lenin Ortiz, Felicia Pitts, Amador Rodarte and colleagues, with an educational marichuy from [employer]. Physical exam (Primary Care) Vital Signs: Last Vital Signs Pulse 77 07/07/24 12:15 Resp 15 07/07/24 12:15 BP 134/83 07/07/24 12:15 Pulse Ox 97 07/07/24 12:15 Oxygen Delivery Method Room Air 07/07/24 12:15 BMI result Body Mass Index 32.7 Tobacco/Smoking Status: Tobacco use Status Tobacco use date assessed 02/17/24 07/07/24 12:14 Patient Tobacco Use Status Never used Tobacco 07/07/24 12:14 e-Cigarette/Vaping Use Never Used 07/07/24 12:14 Thrive Assessment: Date of Thrive Assessment Date Thrive assessed 11/18/23 07/07/24 12:14 Coding Level of Care Code Est Pt Level 4 (02412) Complex EM visit Add On G2211 Diagnoses Type 2 diabetes mellitus with hypoglycemia without coma, without long-term current use of insulin E11.649 Diabetes mellitus complication detail: without coma Diabetes mellitus lobsterman insulin use: without retirement use Class 1 obesity E66.811 BMI 32.0-32.9,adult Z68.32 Overactive bladder N32.81 Assessment & Plan Assessment & Plan (1) Type 2 diabetes mellitus with hypoglycemia: Code(s): E11.649 - Type 2 diabetes mellitus with hypoglycemia without coma Category: Medical Qualifiers: Diabetes mellitus complication detail: without coma Diabetes mellitus retirement insulin use: without lobsterman use Qualified Code(s): E11.649 - Type 2 diabetes mellitus with hypoglycemia without coma Plan: . (2) Class 1 obesity: Code(s): E66.811 - Obesity, class 1 Category: Medical Plan: . (3) BMI 32.0-32.9,adult: Code(s): Z68.32 - Body mass index [BMI] 32.0-32.9, adult Category: Medical Plan: . (4) Overactive bladder: Code(s): N32.81 - Overactive bladder Category: Medical Plan: . Orders: Orders Hemoglobin A1c Today E11.649 - Type 2 diabetes mellitus with hypoglycemia without coma Medications: New metformin ER 500 mg PO QPM 90 tabs 1RF bupropion HCl XL (Wellbutrin XL) 150 mg PO QAM 90 tabs 1RF
[2024-07-07 12:15] VITALS: BP 134/83; PULSE 77; RESP 15; O2SAT 97; BMI 32.7
== END 2024-07-07 13:07 | disposition home or self-care (01) ==
PROVIDERS: PCP Family Medicine; Visit Provider Nurse Practitioner Family
DX: E11.649 Type 2 diabetes mellitus with hypoglycemia without coma (principal); E66.811 Obesity, class 1; Z68.32 Body mass index [BMI] 32.0-32.9, adult; N32.81 Overactive bladder

== ENCOUNTER → 2024-07-07 12:08 | Outpatient (BNVA) | payer BC, SELFPAY | PROVIDERS: PCP Family Medicine; Visit Provider Nurse Practitioner Family ==

== ENCOUNTER 2024-07-21 15:55 | Outpatient (AMB) | payer BC, SELFPAY ==
--- NOTE | 2024-07-21 15:56 | MHC.PC.OV ---
Intake Visit Reasons: follow up Allergies azithromycin Allergy (Unknown, Verified 07/21/24 15:58) stomach upset Medication List - Last Reconciled 07/21/24 by Leilani Mclain, [facility] albuterol sulfate 90 mcg/actuation 2 puffs inhalation Q4-6H PRN 30 days atorvastatin 10 mg PO BEDTIME 90 days blood sugar diagnostic (FreeStyle Lite Strips) DX: E11.9, test blood sugar three times a day, 30 days blood-glucose meter (FreeStyle Lite Meter kit) DX: E11.9, test blood sugar 4 times a day, duration 999 days blood-glucose meter,continuous (Dexcom G7 Slat Basket Maker Helper Machine) As directed, 999 days blood-glucose sensor (Dexcom G7 Sensor device) As directed, 28 days bupropion HCl XL (Wellbutrin XL) 150 mg PO QAM ferrous sulfate 325 mg PO DAILY 90 days fluticasone propionate 50 mcg/actuation (Flonase Allergy Relief) 1 spray intranasal Q12H 30 days lancets (FreeStyle Lancets) Test BS 3 times a day metformin ER 500 mg PO QPM mirabegron ER (Myrbetriq) 25 mg PO DAILY 30 days semaglutide 1 mg (0.375 mL) subcut QWEEK 28 days Tobacco use date assessed: 02/17/24 Dental Screening Dental Screen Date: 11/18/23 HPI HPI Comments History of Present Illness Details 53 y/o F with DM Telehealth visit today for c/o feeling wavy Taking Metformin ER 500mg in the evening since last visit She also started on Wellbutrin XL 150mg. Since this time, says she feels wavy, like in a boat. Not dizzy. CGM numbers show fluctuations, some in the 200's A1c was 5.8% now 6.9% daily avg glucose was 120 now 159 No diet changes. Plan The wavy sensation may be from the Wellbutrin. Stop Wellbutrin for now to see if this is causing the wavy sensation Increase Metformin ER from 500mg QPM to BID FU in 1 week, sooner PRN 07/28/24 1615 telehealth , sooner PRN This note is constructed using voice recognition software. While every effort has been made to ensure accuracy in caregiver services home, still errors may have been included Sometimes, these errors may affect the content or meaning of the given sentence . Total time spent caring for the patient today was 20 minutes. This includes time spent before the visit reviewing the chart, time spent during the visit, and time spent after the visit on documentation [facility] Medical History Diabetes delivery delivered Asthma Surgical History H/O tubal ligation Family History Mother Breast cancer Sister Breast cancer Family/Other Leukemia Social History Household Members: Children Housing: Condominium Are you a primary healthcare economics consultant to a significant other at home: No Do you presently have visiting nurse or other home services: No 75 years or older and lives alone: No Alcohol intake: current Patient Tobacco Use Status: Never used Tobacco e-Cigarette/Vaping Use: Never Used service: No Current occupational status: employed 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 Lenin Ortiz, Felicia Pitts, Amador Rodarte and colleagues, with an educational marichuy from [employer]. Physical exam (Primary Care) Tobacco/Smoking Status: Tobacco use Status Tobacco use date assessed 02/17/24 07/21/24 15:58 Patient Tobacco Use Status Never used Tobacco 07/21/24 15:58 e-Cigarette/Vaping Use Never Used 07/21/24 15:58 Thrive Assessment: Date of Thrive Assessment Date Thrive assessed 11/18/23 07/21/24 15:58 Telehealth Telehealth Telehealth Platform: Telephone Location of provider rendering services: practice address Location of patient: address on file Patient Identification confirmed using: Name, : Yes Telehealth method: voice only Patient verbally consented to treatment: Yes Patient verbally consented to billing insurance company: Yes Patient informed of any privacy concerns related to visit: Yes Minutes spent on Phone/Video with Pt.: 13 Coding Level of Care Code Tele Est Pt Level 2 (67242) Complex EM visit Add On G2211 Diagnoses Type 2 diabetes mellitus with hyperglycemia, without long-term current use of insulin E11.65 Diabetes mellitus fdc insulin use: without fdc use Diabetes mellitus complication status: with hyperglycemia Medication side effect T88.7XXA Assessment & Plan Assessment & Plan (1) DM2 (diabetes mellitus, type 2): Code(s): E11.9 - Type 2 diabetes mellitus without complications Category: Medical Qualifiers: Diabetes mellitus intermediate school teacher insulin use: without fdc use Diabetes mellitus complication status: with hyperglycemia Qualified Code(s): E11.65 - Type 2 diabetes mellitus with hyperglycemia Plan: . (2) Medication side effect: Code(s): T88.7XXA - Unspecified adverse effect of drug or medicament, initial encounter Plan . Medications: Discontinued semaglutide Discontinued Reason: Doctor's Order 1 mg (0.375 mL) subcut QWEEK 28 days 1.5 mL 3RF
== END 2024-07-21 16:50 | disposition home or self-care (01) ==
LOC: HO.HMCFM 15:55
PROVIDERS: PCP Family Medicine; Visit Provider Nurse Practitioner Family
DX: E11.65 Type 2 diabetes mellitus with hyperglycemia (principal); T88.7XXA Unspecified adverse effect of drug or medicament, initial encounter

== ENCOUNTER → 2024-07-21 15:55 | Outpatient (BNVA) | payer BC, SELFPAY | PROVIDERS: PCP Family Medicine; Visit Provider Nurse Practitioner Family ==

== ENCOUNTER 2024-07-28 11:46 | Outpatient (AMB) | payer BC, SELFPAY ==
--- NOTE | 2024-07-28 15:50 | A.OFFPC_ITS ---
Intake Visit Reasons: fu htn diabetes Allergies azithromycin Allergy (Unknown, Verified 07/28/24 15:50) stomach upset Medication List - Last Reconciled 07/28/[address] [facility] albuterol sulfate 90 mcg/actuation 2 puffs inhalation Q4-6H PRN 30 days atorvastatin 10 mg PO BEDTIME 90 days blood sugar diagnostic (FreeStyle Lite Strips) DX: E11.9, test blood sugar three times a day, 30 days blood-glucose meter (FreeStyle Lite Meter kit) DX: E11.9, test blood sugar 4 times a day, duration 999 days blood-glucose meter,continuous (Dexcom G7 Excavator Backhoe Operator) As directed, 999 days blood-glucose sensor (Dexcom G7 Sensor device) As directed, 28 days bupropion HCl XL (Wellbutrin XL) 150 mg PO QAM ferrous sulfate 325 mg PO DAILY 90 days fluticasone propionate 50 mcg/actuation (Flonase Allergy Relief) 1 spray intranasal Q12H 30 days lancets (FreeStyle Lancets) Test BS 3 times a day metformin ER 500 mg PO QPM mirabegron ER (Myrbetriq) 25 mg PO DAILY 30 days Tobacco use date assessed: 02/17/24 Dental Screening Dental Screen Date: 11/18/23 HPI HPI Comments History of Present Illness Details 53 y/o F with DM Telehealth fu visit makenzie cano for complaints of feeling wavy and blood sugars being out arrange. Since last office visit she has been taking metformin ER 500 mg twice per day as directed. She has had improvement in her blood sugars. Her CGM has been in [facility] since Wednesday. Her A1c is now 6.8% on her CGM and her daily average glucose is now 144. She has had no episodes of hypoglycemia. She is tolerating this well. The feeling wavy sensation has also subsided. She was advised to stop the bupropion to see if this was a side effect of the medication. Unknowingly she continue to take this as she prefills her medication boxes. Be that as it may the symptoms are completely resolved. She does report that her highest glucose level was 224. She does have some spikes after meals but no higher than this. Plan Continue taking Wellbutrin XL 150 mg p.o. daily. Continue taking metformin ER 500 mg once daily in the morning. Increase the evening dose to 750 mg. A new prescription was sent for this. I did advise her that if she experiences any hypoglycemia that she is okay to go ahead and decreased back to 500 mg p.o. b.i.d.. Asked that she just send me a portal message. Keep us alert if the way the sensations come back or worsen. Routine labs and follow up with primary care scheduled for later this month. Asked that she reach out should she have any needs sooner. This note is constructed using voice recognition software. While every effort has been made to ensure accuracy in full decator operator, still errors may have been included Sometimes, these errors may affect the content or meaning of the given sentence . Total time spent caring for the patient today was 18 minutes. This includes time spent before the visit reviewing the chart, time spent during the visit, and time spent after the visit on documentation [facility] Medical History Diabetes delivery delivered Asthma Surgical History H/O tubal ligation Family History Mother Breast cancer Sister Breast cancer Family/Other Leukemia Social History Household Members: Children Housing: Condominium Are you a primary rn home care to a significant other at home: No Do you presently have visiting nurse or other home services: No 75 years or older and lives alone: No Alcohol intake: current Patient Tobacco Use Status: Never used Tobacco e-Cigarette/Vaping Use: Never Used service: No Current occupational status: employed 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 Lenin Ortiz, Felicia Pitts, Amador Rodarte and colleagues, with an educational marichuy from [employer]. Physical exam (Primary Care) Tobacco/Smoking Status: Tobacco use Status Tobacco use date assessed 02/17/24 07/21/24 15:58 Patient Tobacco Use Status Never used Tobacco 07/21/24 15:58 e-Cigarette/Vaping Use Never Used 07/21/24 15:58 Thrive Assessment: Date of Thrive Assessment Date Thrive assessed 11/18/23 07/21/24 15:58 Telehealth Telehealth Telehealth Platform: [facility] Location of provider rendering services: practice address Location of patient: address on file Patient Identification confirmed using: Name, : Yes Telehealth method: voice only Patient verbally consented to treatment: Yes Patient verbally consented to billing insurance company: Yes Patient informed of any privacy concerns related to visit: Yes Minutes spent on Phone/Video with Pt.: 14 Coding Level of Care Code Tele Est Pt Level 2 (62208) Complex EM visit Add On G2211 Diagnoses Type 2 diabetes mellitus with hyperglycemia, without long-term current use of insulin E11.65 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 Medications: New metformin ER 750 mg PO QPM 90 tabs 0RF
== END 2024-07-28 16:13 | disposition home or self-care (01) ==
LOC: HO.HMCFM 11:46
PROVIDERS: PCP Family Medicine; Visit Provider Nurse Practitioner Family
DX: E11.65 Type 2 diabetes mellitus with hyperglycemia (principal)

== ENCOUNTER → 2024-07-28 11:46 | Outpatient (BNVA) | payer BC, SELFPAY | PROVIDERS: PCP Family Medicine; Visit Provider Nurse Practitioner Family ==

== ENCOUNTER 2024-08-07 08:18 | Outpatient (REF) | payer BC, SELFPAY ==
[2024-08-07 11:06] LABS: MANUAL DIFF FLAG NO
[2024-08-07 11:18] LABS: Basophils Absolute Auto 0.1 X10*3/uL (0.0-0.2); Basophils Percent Auto 0.5 % (0-2); Eosinophils Absolute Auto 0.2 X10*3/uL (0.0-0.4); Eosinophils Percent Auto 2.1 % (0-4); Hematocrit 38.7 % (37.0-47.0); Hemoglobin 12.4 g/dl (12.0-16.0); Imm Gran Abs Auto 0.04 X10*3/uL (0.00-0.03); Imm Gran Pct Auto 0.4 % (0.0-0.4); Lymphocytes Absolute Auto 2.6 X10*3/uL (1.2-4.9); Lymphocytes Percent Auto 22.8 % (20-40); Mean Corpuscular Hemoglobin 25.8 pg (27.0-33.0); Mean Corpuscular Volume 80.6 fL (80.0-98.0); Mean Platelet Volume 10.2 fL (9.4-12.3); Monocytes Absolute Auto 0.6 X10*3/uL (0.1-1.2); Monocytes Percent Auto 5.6 % (2-11); Neutrophils Absolute Auto 7.7 x10*3/uL (2.0-8.3); Neutrophils Percent Auto 68.6 % (45-73); Platelet Count 378 X10*3/uL (160-400); Red Cell Distribution Width 16.2 % (11.0-16.0); White Blood Count 11.2 X10*3/uL (4.8-10.8)
[2024-08-07 11:24] LABS: Estimated Average Glucose 128 mg/dL; Hemoglobin A1c % 6.1 % (<6.0); Total Hemoglobin (HGBA1C) 3248.8863 umol/L
[2024-08-07 11:33] LABS: Alanine Aminotransferase 16 U/L (0-31); Alkaline Phosphatase 79 U/L (39-117); Anion Gap 12 (12-20); Aspartate Amino Transferase 20 U/L (5-31); Bilirubin Total 0.3 mg/dL (0.0-1.0); Blood Urea Nitrogen 9 mg/dL (9-16); Calcium 9.5 mg/dL (8.4-10.2); Carbon Dioxide 27 mmol/L (22-29); Chloride 104 mmol/L (96-108); Cholesterol 130 mg/dL (<200); Estimated Glomerular Filt Rate > 60; Glucose Fasting 85 mg/dL (60-99); HDL Cholesterol 43 mg/dL (>40); LDL Cholesterol Calculated 74 mg/dL (<100); Potassium 3.9 mmol/L (3.3-5.1); Sodium 139 mmol/L (135-145); Total Protein 7.6 g/dL (6.5-8.0); Triglycerides 67 mg/dL (<150)
== END 2024-08-07 08:19 | disposition home or self-care (01) ==
LOC: HO.WFDLDS 08:18
PROVIDERS: Referring Provider Nurse Practitioner Family; Visit Provider Family Medicine
DX: Z00.00 Encounter for general adult medical examination without abnormal findings (principal); R71.8 Other abnormality of red blood cells; E78.00 Pure hypercholesterolemia, unspecified; E11.649 Type 2 diabetes mellitus with hypoglycemia without coma
CPT/HCPCS: 36415; 80053; 80061; 83036; 85025

== ENCOUNTER 2024-08-15 16:12 | Outpatient (AMB) | payer BC, SELFPAY ==
--- NOTE | 2024-08-15 16:19 | A.OFFPC_ITS ---
Vital Signs 08/15/24 16:21 Height 5 ft 5 in Weight 201 lb 4 oz BMI 33.5 BP 128/72 Blood Pressure Location Rt brachial Position Sitting Respiration 16 Pulse 86 Pulse Source Pulse Oximeter Temp 99.8 F Temp Source Oral Pulse Oximetry (%) 97 Oxygen Delivery Method Room Air Intake Visit Reasons: f/u diabetes, microcytosis Intake Note: f/u DM and microcytosis Allergies azithromycin Allergy (Unknown, Verified 08/15/24 16:20) stomach upset Tobacco use date assessed: 02/17/24 Dental Screening Dental Screen Date: 11/18/23 HPI f/u diabetes, microcytosis HPI Details 53 y/o female presents to f/u diabetes, microcytosis. Had seen Leilani Mclain 07/28/24. Increased her evening dose of metformin to 750mg, 500mg in the morning. Labs drawn 08/07/24. Microcytosis resolved. A1c 6.1%. Triglycerides 67. TC 130. LDL 74. HDL 43. She is on artovastatin 10mg. 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 1. Little interest or pleasure in doing things: not at all 2. Feeling down, depressed, or hopeless: not at all 3. Trouble falling or staying asleep, or sleeping too much: not at all 4. Feeling tired or having little energy: not at all 5. Poor appetite or overeating: several days 6. Feeling bad about yourself - or that you are a failure or have let yourself or your family down: not at all 7. Trouble concentrating on things, such as reading the newspaper or watching television: not at all 8. Moving or speaking so slowly that other people could have noticed. Or the opposite - being so fidgety or restless that you have been moving around a lot more than usual: not at all 9. Thoughts that you would be better off or of hurting yourself in some way: not at all Total score: 1 Source: Developed by Drs. Lenin Ortiz, Felicia Pitts, Amador Rodarte and colleagues, with an educational marichuy from [employer]. Thrive Questionnaire Date Thrive assessed: 08/08/24 I am a: Patient What is your living situation today?: I have a steady place to live Within the past 12 months, did the food you bought not last and you didn't have the money to get more?: Never true Within the past 12 months, did you worry whether your food would run out before you got money to buy more?: Never true Do you have trouble paying for medicines?: No Do you have trouble getting transportation to medical appointments?: No Do you have trouble paying your heating and electricity bill?: No Do you have trouble taking care of your child, family member or friend?: No Do you have trouble with day-to-day activities such as bathing, preparing meals, shopping, managing finances, etc.?: No Are you currently unemployed and looking for a job?: No Are you interested in more education?: No Please select the resources that you would like help with: None Currently or been in a relationship where the following occur: No concerns reported THRIVE Score: 0 AUDIT C Alcohol Use Questionnaire (AUDIT-C) 1. How often do you have a drink containing alcohol?: Monthly or less Total Score: 1 ROBERTO-7 AMB Questionnaire ROBERTO-7 Date ROBERTO - 7 assessed: 11/18/23 Feeling nervous, anxious, or on edge: 0 = Not at all Not being able to stop or control worryin = Not at all Worrying too much about different things: 0 = Not at all Trouble relaxin = Not at all Being so restless that it is hard to sit still: 0 = Not at all Becoming easily annoyed or irritable: 0 = Not at all Feeling afraid as if something awful might happen: 0 = Not at all Total ROBERTO-7 score (0-4 normal; 5-9 mild; 10-14 moderate; 15-21 severe): 0 Source: Developed by Drs. Lenin Ortiz, Felicia Pitts, Amador Rodarte and colleagues, with an educational marichuy from [employer]. Review of Systems Const Denies chills, Denies fatigue, Denies fever(s), Denies headache(s) and Denies weakness ENT Denies dizziness and Denies headache(s) Card Denies dyspnea Resp Denies cough, Denies dyspnea, Denies wheezing and Denies other (shortness of breath) Musc Denies numbness and Denies tingling Neuro Denies dizziness, Denies headache(s), Denies numbness, Denies tingling and Denies weakness Psych Denies anxiety and Denies depression Endo Denies fatigue Aller/Immun Denies wheezing Physical exam (Primary Care) Vital Signs: Last Vital Signs Temp 99.8 F 08/15/24 16:21 Pulse 86 08/15/24 16:21 Resp 16 08/15/24 16:21 BP 128/72 08/15/24 16:21 Pulse Ox 97 08/15/24 16:21 Oxygen Delivery Method Room Air 08/15/24 16:21 BMI result Body Mass Index 33.5 Tobacco/Smoking Status: Tobacco use Status Tobacco use date assessed 02/17/24 08/15/24 16:25 Patient Tobacco Use Status Never used Tobacco 08/15/24 16:25 e-Cigarette/Vaping Use Never Used 08/15/24 16:25 PHQ-9: PHQ-9 Score PHQ-9: Total score 1 08/15/24 16:40 Thrive Assessment: Date of Thrive Assessment Date Thrive assessed 08/08/24 08/15/24 16:25 Currently or been in a relationship where the following occur: No concerns reported Const General: well developed; No acute distress Nutritional Appearance: well nourished Orientation/consciousness: patient oriented x3 HENMT Head: Yes normocephalic and Yes atraumatic Eyes General: appearance normal, both eyes and all related structures Pupils: Equal, round and reactive pupils present EOM: EOMs intact bilaterally Resp Effort & Inspection: normal respiratory effort Auscultation: clear to auscultation bilaterally Cardio Rate: regular rate Rhythm: regular rhythm Heart sounds: S1 normal heart sound present, S2 normal heart sound present, no gallops, no murmurs and no rubs Neuro General: patient oriented x3 and gait normal Cranial nerves: Yes Equal, round and reactive pupils present Psych Affect: normal affect Coding Level of Care Code Est Pt Level 4 (23614) Diagnoses Type 2 diabetes mellitus with hyperglycemia, without long-term current use of insulin E11.65 Diabetes mellitus complication status: with hyperglycemia 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 She?had?never?had?low?blood?sugars?semaglutide?0.5?mg?weekly?with?metformin?500? mg?b.i.d. She?is?unhappy?with?her? blood?sugar?control?and?was?feeling?better?her?prior?regimen. Will?resume?semaglutide?0.5?mg?weekly?and?she?take?metformin?250?mg?b.i.d. Check?blood?sugars?frequently?and?discontinue?metformin?if?blo od?sugars?low.??Call?or?return?to?office?if?blood?sugars?are?low. If?blood?sugars?are?running?high?due?to?significant?decrease?in?regimen,?she?can ?increase?metformin?to?5?mg?b.i.d.?as?was?her?prior?regimen. (2) Microcytosis: Code(s): R71.8 - Other abnormality of red blood cells Category: Medical Plan: Microcytosis?and?thrombocytosis?have?resolved?though?she?still?a?fluctuating?tawnya kocytosis. Will?continue?to?monitor (3) Thrombocytosis: Code(s): D75.839 - Thrombocytosis, unspecified Category: Medical Plan: As above (4) Hypercholesterolemia: Code(s): E78.00 - Pure hypercholesterolemia, unspecified Category: Medical Plan: Lipids?not?well?controlled?on?atorvastatin?10?mg?daily?and?she?is?tolerating?thi s?well. Continue atorvastatin Orders: Orders Microalbumin, Random (w Creat) Today E11.9 - Type 2 diabetes mellitus without complications, I10 - Essential (primary) hypertension Hemoglobin A1c Today E11.9 - Type 2 diabetes mellitus without complications, R73.01 - Impaired fasting glucose Comprehensive [place]. Panel Fast Today E11.9 - Type 2 diabetes mellitus without complications, Z00.00 - Encounter for general adult medical examination without abnormal findings Complete Blood Count Auto Diff Today R71.8 - Other abnormality of red blood cells, Z00.00 - Encounter for general adult medical examination without abnormal findings Medications: New metformin 250 mg (1/2 x 500 mg) PO BID 30 days 30 tabs 0RF semaglutide 0.5 mg (0.736 mL) subcut QWEEK 28 days 2.944 mL 2RF E11.65 - Type 2 diabetes mellitus with hyperglycemia On Hold metformin ER Hold Comment: Doctor's Order 500 mg PO QPM 90 tabs 1RF metformin ER Hold Comment: Doctor's Order 750 mg PO QPM 90 tabs 0RF
[2024-08-15 16:21] VITALS: BP 128/72; PULSE 86; RESP 16; TEMP 37.7; O2SAT 97; BMI 33.5
== END 2024-08-15 16:58 | disposition home or self-care (01) ==
PROVIDERS: PCP Family Medicine; Visit Provider Family Medicine
DX: E11.65 Type 2 diabetes mellitus with hyperglycemia (principal); R71.8 Other abnormality of red blood cells; D75.839 Thrombocytosis, unspecified; E78.00 Pure hypercholesterolemia, unspecified

== ENCOUNTER → 2024-08-15 16:12 | Outpatient (BNVA) | payer BC, SELFPAY | PROVIDERS: PCP Family Medicine; Visit Provider Family Medicine ==

== ENCOUNTER 2024-08-30 08:05 | Outpatient (REF) | payer BC, SELFPAY ==
[2024-08-30 11:17] LABS: MANUAL DIFF FLAG NO
[2024-08-30 11:24] LABS: Basophils Absolute Auto 0.1 X10*3/uL (0.0-0.2); Basophils Percent Auto 0.7 % (0-2); Eosinophils Absolute Auto 0.3 X10*3/uL (0.0-0.4); Eosinophils Percent Auto 2.6 % (0-4); Hematocrit 40.1 % (37.0-47.0); Hemoglobin 12.7 g/dl (12.0-16.0); Imm Gran Abs Auto 0.03 X10*3/uL (0.00-0.03); Imm Gran Pct Auto 0.3 % (0.0-0.4); Lymphocytes Absolute Auto 2.6 X10*3/uL (1.2-4.9); Lymphocytes Percent Auto 24.7 % (20-40); Mean Corpuscular HGB Conc 31.7 g/dl (31.0-35.0); Mean Corpuscular Hemoglobin 26.1 pg (27.0-33.0); Mean Corpuscular Volume 82.3 fL (80.0-98.0); Mean Platelet Volume 9.6 fL (9.4-12.3); Monocytes Absolute Auto 0.7 X10*3/uL (0.1-1.2); Monocytes Percent Auto 6.3 % (2-11); Neutrophils Absolute Auto 6.9 x10*3/uL (2.0-8.3); Neutrophils Percent Auto 65.4 % (45-73); Platelet Count 378 X10*3/uL (160-400); Red Blood Count 4.87 X10*6/uL (4.20-5.50); Red Cell Distribution Width 16.4 % (11.0-16.0); White Blood Count 10.5 X10*3/uL (4.8-10.8)
[2024-08-30 11:48] LABS: Alanine Aminotransferase 19 U/L (0-31); Alkaline Phosphatase 80 U/L (39-117); Anion Gap 11 (12-20); Aspartate Amino Transferase 24 U/L (5-31); Bilirubin Total 0.4 mg/dL (0.0-1.0); Blood Urea Nitrogen 11 mg/dL (9-16); Calcium 9.4 mg/dL (8.4-10.2); Carbon Dioxide 29 mmol/L (22-29); Chloride 105 mmol/L (96-108); Estimated Glomerular Filt Rate > 60; Glucose Fasting 76 mg/dL (60-99); Potassium 4.2 mmol/L (3.3-5.1); Sodium 141 mmol/L (135-145); Total Protein 7.5 g/dL (6.5-8.0)
[2024-08-30 12:05] LABS: Microalbum/Creatinine Ratio Ur 9.7 ug/mg cr (<30)
[2024-08-30 12:07] LABS: Estimated Average Glucose 128 mg/dL; Hemoglobin A1C 141.3399 umol/L; Hemoglobin A1c % 6.1 % (<6.0); Total Hemoglobin (HGBA1C) 3280.6427 umol/L
== END 2024-08-30 08:06 | disposition home or self-care (01) ==
LOC: HO.WFDLDS 08:05
PROVIDERS: Visit Provider Family Medicine
DX: M54.9 Dorsalgia, unspecified (principal); R03.0 Elevated blood-pressure reading, without diagnosis of hypertension; Z00.00 Encounter for general adult medical examination without abnormal findings; R71.8 Other abnormality of red blood cells; E11.9 Type 2 diabetes mellitus without complications; I10 Essential (primary) hypertension
CPT/HCPCS: 36415; 80053; 82043; 82570; 83036; 85025

== ENCOUNTER 2024-08-30 14:52 | Outpatient (AMB) | payer BC, SELFPAY ==
--- NOTE | 2024-08-30 15:09 | A.OFFPC_ITS ---
Vital Signs 08/30/24 15:15 Height 5 ft 5 in Weight 201 lb 2 oz BMI 33.5 BP 155/85 H Blood Pressure Location Rt brachial Position Sitting Respiration 16 Pulse 84 Pulse Source Pulse Oximeter Temp 97.3 F Temp Source Temporal Artery Scan Pulse Oximetry (%) 98 Oxygen Delivery Method Room Air Intake Visit Reasons: Back spasms/high BP Intake Note: patient here c/o back spasm and HTN First Crusher Required: No Is last menstrual period known: No Post menopausal: No Patient : No Allergies azithromycin Allergy (Unknown, Verified 08/30/24 15:37) stomach upset Medication List - Last Reconciled 08/30/24 by Arleth Vasques CNP albuterol sulfate 90 mcg/actuation 2 puffs inhalation Q4-6H PRN 30 days atorvastatin 10 mg PO BEDTIME 90 days blood sugar diagnostic (FreeStyle Lite Strips) DX: E11.9, test blood sugar three times a day, 30 days blood-glucose meter (FreeStyle Lite Meter kit) DX: E11.9, test blood sugar 4 times a day, duration 999 days blood-glucose meter,continuous (Dexcom G7 Journal Entry Audit Clerk) As directed, 999 days blood-glucose sensor (Dexcom G7 Sensor device) As directed, 28 days bupropion HCl XL (Wellbutrin XL) 150 mg PO QAM ferrous sulfate 325 mg PO DAILY 90 days fluticasone propionate 50 mcg/actuation (Flonase Allergy Relief) 1 spray intranasal Q12H 30 days lancets (FreeStyle Lancets) Test BS 3 times a day metformin 250 mg (1/2 x 500 mg) PO BID 30 days metformin ER 500 mg PO QPM metformin ER 750 mg PO QPM mirabegron ER (Myrbetriq) 25 mg PO DAILY 30 days semaglutide 0.5 mg (0.736 mL) subcut QWEEK 28 days Tobacco use date assessed: 08/30/24 Dental Screening Dental Screen Date: 08/30/24 Did you have a dental visit in the last 12 months?: Yes Did you have a dental problem in the last 6 months where you did not have access to dental care?: No Was dental information given to patient?: Patient has dentist HPI HPI Comments History of Present Illness Details The patient is a 53-year-old female presenting with acute onset upper back pain with spasmodic episodes. The issue began on the Wednesday night before following the lifting of a barn door in her house. Initially, the patient did not experience noticeable symptoms; however, upon waking on , she felt as though she had slept wrong. The pain origina ap from the upper back and radiated to the center of her chest. The patient did not immediately medicate, opting instead for non-pharmacological interventions such as mentholated topical applications, which provided minimal relief. By Wednesday night, the patient noted worsening symptoms, leading to the use of a topical analgesic with little improvement. The patient reported an escalation to spasmodic back episodes on the morning of the visit, characterized by an inability to catch her breath and notable discomfort that impacted her normal activities. The pain is consistently present, reported as a dull ache with a severity of 5 out of 10 at rest, elevating to off the charts during spasmodic episodes. The patient self-reported normally possessing a high tolerance for pain. She had taken three doses of ibuprofen earlier, on the day of the visit. She denies any history of elevated blood pressure, but during an episode at school, her blood pressure measured significantly higher than her norm. [facility] Medical History Diabetes delivery delivered Asthma Surgical History H/O tubal ligation Family History Mother Breast cancer Sister Breast cancer Family/Other Leukemia Social History Household Members: Children [facility] Are you a primary day care attendant to a significant other at home: No Do you presently have visiting nurse or other home services: No 75 years or older and lives alone: No Alcohol intake: current Patient Tobacco Use Status: Never used Tobacco e-Cigarette/Vaping Use: Never Used Patient : No service: No Current occupational status: employed 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[employer] Cognitive needs: No Hearing needs: No Vision needs: Yes (Patient wears transition lenses) Female Reproductive History Menstrual Age of Menarche: 16 Questionnaire Thrive Questionnaire Date Thrive assessed: 08/08/24 I am a: Patient What is your living situation today?: I have a steady place to live Within the past 12 months, did the food you bought not last and you didn't have the money to get more?: Never true Within the past 12 months, did you worry whether your food would run out before you got money to buy more?: Never true Do you have trouble paying for medicines?: No Do you have trouble getting transportation to medical appointments?: No Do you have trouble paying your heating and electricity bill?: No Do you have trouble taking care of your child, family member or friend?: No Do you have trouble with day-to-day activities such as bathing, preparing meals, shopping, managing finances, etc.?: No Are you currently unemployed and looking for a job?: No Are you interested in more education?: No Please select the resources that you would like help with: None Currently or been in a relationship where the following occur: No concerns reported THRIVE Score: 0 ROBERTO-7 AMB Questionnaire ROBERTO-7 Date ROBERTO - 7 assessed: 11/18/23 Source: Developed by Drs. Lenin Ortiz, Felicia Pitts, Amador Rodarte and colleagues, with an educational marichuy from [employer]. Review of Systems Const Details: Const Denies chills, Denies fatigue, Denies fever(s), Denies headache(s) and Denies weakness ENT Denies dizziness and Denies headache(s) Card Denies chest pain, Denies lightheadedness, Denies dyspnea and Denies other (Palpitations) Resp Denies cough, Denies dyspnea, Denies wheezing and Denies other ( shortness of breath) GI Denies abdominal pain, Denies melena, Denies hematochezia, Denies change in bowel habits, Denies dyspepsia and Denies nausea Denies hematuria and Denies dysuria Musc Reports as per HPI Skin/Breast Denies rash, Denies unusual bruising and Denies wounds Neuro Denies abnormal gait, Denies dizziness, Denies headache(s), Denies memory loss, Denies numbness, Denies Sensory deficit (Neuro), Denies tingling and Denies weakness Psych Denies anxiety, Denies depression, Denies memory loss Endo Denies cold intolerance, Denies fatigue, Denies heat intolerance, Denies polydipsia and Denies polyuria Aller/Immun Denies wheezing Physical exam (Primary Care) Vital Signs: Last Vital Signs Temp 97.3 F 08/30/24 15:15 Pulse 84 08/30/24 15:15 Resp 16 08/30/24 15:15 BP 155/85 H 08/30/24 15:15 Pulse Ox 98 08/30/24 15:15 Oxygen Delivery Method Room Air 08/30/24 15:15 BMI result Body Mass Index 33.5 Tobacco/Smoking Status: Tobacco use Status Tobacco use date assessed 08/30/24 08/30/24 15:18 Patient Tobacco Use Status Never used Tobacco 08/30/24 15:11 e-Cigarette/Vaping Use Never Used 08/30/24 15:11 Thrive Assessment: Date of Thrive Assessment Date Thrive assessed 08/08/24 08/30/24 15:11 Currently or been in a relationship where the following occur: No concerns reported Const Other: General: no acute distress and well developed Nutritional Appearance: well nourished Orientation/consciousness: patient oriented x3 HENMT Head: Yes normocephalic and Yes atraumatic Eyes General: appearance normal, both eyes and all related structures Pupils: Equal, round and reactive pupils present EOM: EOMs intact bilaterally Resp Effort & Inspection: normal respiratory effort Auscultation: clear to auscultation bilaterally Cardio Rate: regular rate Rhythm: regular rhythm Heart sounds: S1 normal heart sound present, S2 normal heart sound present, no gallops, no murmurs and no rubs GI Palpation (GI): No Abdominal aortic bruit present, Soft to palpation, nontender, No hepatosplenomegaly present and No Rebound tenderness present Auscultation: normal bowel sounds General: Yes no CVA tenderness Back/Spine/Pelvis Back: no CVA tenderness Cervical Spine: cervical ROM normal and No Cervical spine tenderness Thoracic/Lumbar Spine: thoraco-lumbar ROM normal, No pain with thoraco-lumbar ROM, No thoracic spinal tenderness and No lumbar spinal tenderness Extrem General: Yes normal to inspection, No edema and No calf tenderness Skin General: warm and dry. Normal skin color. Normal skin turgor Neuro General: patient oriented x3, gait normal and no focal neuro deficit Cranial nerves: Yes Equal, round and reactive pupils present Cognition (Neuro): normal cognition Gait exam (Neuro): Normal gait present Sensory Exam: No Sensory deficit (Neuro) Psych Appearance: grossly normal Affect: normal affect Attitude: cooperative Thought process: Normal thought process present Coding Level of Care Code Est Pt Level 3 (92872) Diagnoses Back pain M54.9 Elevated systolic blood pressure reading without diagnosis of hypertension R03.0 Assessment & Plan Assessment & Plan (1) Back pain: Code(s): M54.9 - Dorsalgia, unspecified Category: Medical Plan: Naproxen and cyclobenzaprine as prescribed. Encouraged to take naproxen with food. Instructed on the risks, benefits, and potential adverse reactions of the medications. (2) Elevated systolic blood pressure reading without diagnosis of hypertension: Code(s): R03.0 - Elevated blood-pressure reading, without diagnosis of hypertension Category: Medical Plan: Monitor blood pressure daily while managing pain to track potential resolution as pain subsides. Plan I discussed with the patient the primary concern of acute upper back pain and associated muscle spasms, standing as the main cause for the elevated blood pressure. I advised a regimen of NSAIDs with concurrent consideration of a muscle relaxant to relieve spasms. Risks, such as potential drowsiness from the muscle relaxant, were reviewed, emphasizing safe usage timing. I addressed the lack of interaction with current medications and her reported analgesic sensitivity. Continuous monitoring of her blood pressure during symptomatic periods is recommended to evaluate improvement as pain management proceeds. I emphasized the importance of lifestyle adaptations, such as topical applications and positional awareness, to manage her condition. Medications: New naproxen 500 mg PO BID PRN 30 tabs 0RF pain cyclobenzaprine 10 mg PO BID PRN 30 tabs 0RF muscle spasm Patient Instructions: - Take NSAID as prescribed, with food, regularly for at least 5 days. - Use the muscle relaxant during non-active periods to alleviate spasms. - Monitor blood pressure daily during the symptom period. - Employ warm or cold compresses to manage discomfort. - Avoid driving when under the effects of muscle relaxant. - Return for evaluation if symptoms persist or escalate. Patient was informed and verbally consented to the use of an ambient scribe for clinic note documentation during this visit.
[2024-08-30 15:15] VITALS: BP 155/85; PULSE 84; RESP 16; TEMP 36.3; O2SAT 98; BMI 33.5
== END 2024-08-30 15:38 | disposition home or self-care (01) ==
PROVIDERS: PCP Family Medicine; Visit Provider Nurse Practitioner Family
DX: M54.9 Dorsalgia, unspecified (principal); R03.0 Elevated blood-pressure reading, without diagnosis of hypertension

== ENCOUNTER 2024-09-15 10:15 | Outpatient (AMB) | payer BC, SELFPAY ==
--- NOTE | 2024-09-15 10:26 | A.OFFPC_ITS ---
Vital Signs 09/15/24 10:31 Height 5 ft 5 in Weight 200 lb BMI 33.3 BP 126/80 Blood Pressure Location Rt brachial Position Sitting Respiration 16 Pulse 86 Pulse Source Pulse Oximeter Pulse Oximetry (%) 98 Oxygen Delivery Method Room Air Intake Visit Reasons: f/u diabetes, labs Intake Note: f/u DM and labs Allergies azithromycin Allergy (Unknown, Verified 09/15/24 10:27) stomach upset Medication List - Last Reconciled 09/15/24 by Graham Howard MD albuterol sulfate 90 mcg/actuation 2 puffs inhalation Q4-6H PRN 30 days atorvastatin 10 mg PO BEDTIME 90 days blood sugar diagnostic (FreeStyle Lite Strips) DX: E11.9, test blood sugar three times a day, 30 days blood-glucose meter (FreeStyle Lite Meter kit) DX: E11.9, test blood sugar 4 times a day, duration 999 days blood-glucose meter,continuous (Dexcom G7 Lead Installer) As directed, 999 days blood-glucose sensor (Dexcom G7 Sensor device) As directed, 28 days bupropion HCl XL (Wellbutrin XL) 150 mg PO QAM cyclobenzaprine 10 mg PO BID PRN ferrous sulfate 325 mg PO DAILY 90 days fluticasone propionate 50 mcg/actuation (Flonase Allergy Relief) 1 spray intranasal Q12H 30 days lancets (FreeStyle Lancets) Test BS 3 times a day metformin 250 mg (1/2 x 500 mg) PO BID 30 days metformin ER 500 mg PO QPM metformin ER 750 mg PO QPM mirabegron ER (Myrbetriq) 25 mg PO DAILY 30 days naproxen 500 mg PO BID PRN semaglutide 0.5 mg (0.736 mL) subcut QWEEK 28 days Tobacco use date assessed: 08/30/24 Dental Screening Dental Screen Date: 08/30/24 HPI f/u diabetes, labs HPI Details 53 y/o female presents to f/u diabetes. Had been unhappy with her diabetes regimen due to low blood sugars. Had resumed semaglutide 0.5mg weekly, metformin 250mg b.i.d. Labs drawn 08/30/24. Reviewed labs with pt. A1c 6.1%. Notes has gotten a couple readings of low blood sugars late at night in the 50s. Reports L sided back pain. Pain does not seem to be associated with eating. Also notes chest tightness. HPI Comments History of Present Illness Details Documentation assistance for Graham Howard MD, was provided by Daniel Bond, Coffee Shop Aide on 09/15/2024 at 10:51 AM EST. I, Dr. Howard, have read, observed, and verified documentation. 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[employer] Cognitive needs: No Hearing needs: No Vision needs: Yes (Patient wears transition lenses) Female Reproductive History Menstrual Age of Menarche: 16 Questionnaire Thrive Questionnaire Date Thrive assessed: 08/08/24 I am a: Patient What is your living situation today?: I have a steady place to live Within the past 12 months, did the food you bought not last and you didn't have the money to get more?: Never true Within the past 12 months, did you worry whether your food would run out before you got money to buy more?: Never true Do you have trouble paying for medicines?: No Do you have trouble getting transportation to medical appointments?: No Do you have trouble paying your heating and electricity bill?: No Do you have trouble taking care of your child, family member or friend?: No Do you have trouble with day-to-day activities such as bathing, preparing meals, shopping, managing finances, etc.?: No Are you currently unemployed and looking for a job?: No Are you interested in more education?: No Please select the resources that you would like help with: None Currently or been in a relationship where the following occur: No concerns reported THRIVE Score: 0 ROBERTO-7 AMB Questionnaire ROBERTO-7 Date ROBERTO - 7 assessed: 11/18/23 Source: Developed by Drs. Lenin Ortiz, Felicia Pitts, Amador Rodarte and colleagues, with an educational marichuy from [employer]. Review of Systems Const Denies chills, Denies fatigue, Denies fever(s), Denies headache(s) and Denies weakness ENT Denies dizziness and Denies headache(s) Card Denies dyspnea Resp Details: Chest tightness Denies cough, Denies dyspnea, Denies wheezing and Denies other (shortness of breath) Musc Reports back pain, Denies numbness and Denies tingling Neuro Denies dizziness, Denies headache(s), Denies numbness, Denies tingling and Denies weakness Psych Denies anxiety and Denies depression Endo Denies fatigue Aller/Immun Denies wheezing Physical exam (Primary Care) Vital Signs: Last Vital Signs Pulse 86 09/15/24 10:31 Resp 16 09/15/24 10:31 BP 126/80 09/15/24 10:31 Pulse Ox 98 09/15/24 10:31 Oxygen Delivery Method Room Air 09/15/24 10:31 BMI result Body Mass Index 33.3 Tobacco/Smoking Status: Tobacco use Status Tobacco use date assessed 08/30/24 09/15/24 10:34 Patient Tobacco Use Status Never used Tobacco 09/15/24 10:34 e-Cigarette/Vaping Use Never Used 09/15/24 10:34 Thrive Assessment: Date of Thrive Assessment Date Thrive assessed 08/08/24 09/15/24 10:34 Currently or been in a relationship where the following occur: No concerns reported Const General: well developed; No acute distress Nutritional Appearance: well nourished Orientation/consciousness: patient oriented x3 HENMT Head: Yes normocephalic and Yes atraumatic Eyes General: appearance normal, both eyes and all related structures Pupils: Equal, round and reactive pupils present EOM: EOMs intact bilaterally Resp Effort & Inspection: normal respiratory effort Auscultation: clear to auscultation bilaterally Cardio Rate: regular rate Rhythm: regular rhythm Heart sounds: S1 normal heart sound present, S2 normal heart sound present, no gallops, no murmurs and no rubs Neuro General: patient oriented x3 and gait normal Cranial nerves: Yes Equal, round and reactive pupils present Psych Affect: normal affect Coding Level of Care Code Est Pt Level 4 (97208) Diagnoses Type 2 diabetes mellitus with hyperglycemia, without long-term current use of insulin E11.65 Diabetes mellitus complication status: with hyperglycemia Diabetes mellitus senior care insulin use: without long term care phlebotomist use Chest tightness R07.89 Back pain M54.9 Assessment & Plan Assessment & Plan (1) DM2 (diabetes mellitus, type 2): Code(s): E11.9 - Type 2 diabetes mellitus without complications Category: Medical Qualifiers: Diabetes mellitus complication status: with hyperglycemia Diabetes mellitus long term care phlebotomist insulin use: without senior care use Qualified Code(s): E11.65 - Type 2 diabetes mellitus with hyperglycemia Plan: A1c?remains?6.1%?despite?decreasing?metformin?semaglutide?regimen.??She?had?been ?having?low?blood?sugars. Doing?better?now?and?has?only?couple?of?low?blood?sugars.??She?is?using?snac ks?to?prevent?this. Asked?her?to?double?check?her?continuous?glucose?monitor?with?a?regular?fingerst ick?when?she?has?low?blood?sugars?to?confirm. Continue?current?medication?regimen Continue?diabetic?diet?and?can?snacks?she?has been. (2) Chest tightness: Code(s): R07.89 - Other chest pain Category: Medical Plan: L sided back/chest pain w/ deep inspiration. Lungs?are?clear?to?auscultation EKG:??Normal?sinus?rhythm,?normal?axis,?no?hypertrophy,?no?ST-T-wave?changes. Pain?wraps?around?to?left?upper?quadrant. Patient?is?on?semaglutide.??Checking?lipase?rule?out?smoldering?pancreatitis. Most?likely?muscular. Continue?NSAIDs?in. Use?ice/heat. May?benefit?from?physical?therapy (3) Back pain: Code(s): M54.9 - Dorsalgia, unspecified Category: Medical Plan: As?above Orders: Orders AMB EKG-In Office Today M54.9 - Dorsalgia, unspecified XR chest 2V Today M54.9 - Dorsalgia, unspecified Basic Metabolic Panel Today M54.9 - Dorsalgia, unspecified, Z00.00 - Encounter for general adult medical examination without abnormal findings Lipase Today M54.9 - Dorsalgia, unspecified Medications: Discontinued metformin ER Discontinued Reason: Doctor's Order 500 mg PO QPM 90 tabs 1RF metformin ER Discontinued Reason: Doctor's Order 750 mg PO QPM 90 tabs 0RF
[2024-09-15 10:31] VITALS: BP 126/80; PULSE 86; RESP 16; O2SAT 98; BMI 33.3
== END 2024-09-15 11:24 | disposition home or self-care (01) ==
PROVIDERS: PCP Family Medicine; Visit Provider Family Medicine
DX: E11.65 Type 2 diabetes mellitus with hyperglycemia (principal); R07.89 Other chest pain; M54.9 Dorsalgia, unspecified

== ENCOUNTER 2024-09-15 11:28 | Outpatient (REF) | payer BC, SELFPAY ==
[2024-09-15 14:37] LABS: Anion Gap 15 (12-20); Blood Urea Nitrogen 11 mg/dL (9-16); Calcium 9.7 mg/dL (8.4-10.2); Carbon Dioxide 28 mmol/L (22-29); Chloride 105 mmol/L (96-108); Estimated Glomerular Filt Rate > 60; Glucose Random 74 mg/dL (60-115); Lipase 20 U/L (8-78); Potassium 4.1 mmol/L (3.3-5.1); Sodium 144 mmol/L (135-145)
== END 2024-09-15 11:29 | disposition home or self-care (01) ==
LOC: HO.WFDLDS 11:28
PROVIDERS: Visit Provider Family Medicine
DX: Z00.00 Encounter for general adult medical examination without abnormal findings (principal); M54.9 Dorsalgia, unspecified
CPT/HCPCS: 36415; 80048; 83690

== ENCOUNTER 2024-10-25 15:52 | Outpatient (AMB) | payer BC, SELFPAY ==
--- NOTE | 2024-10-25 16:08 | MHC.OFFVIS ---
Intake Visit Reasons: 6m/PVR Intake Note: Patient is present for PVR Follow up Urology Med: Myrbetriq Antibiotic Allergy: Azithromycin Blood Thinner: None PVR:0ML Occupational Therapy Aide Required: No Accompanied by: Self / Same As Patient Allergies azithromycin Allergy (Unknown, Verified 10/25/24 20:08) stomach upset Medication List - Last Reconciled 10/25/24 by YANCY RussellP- albuterol sulfate 90 mcg/actuation 2 puffs inhalation Q4-6H PRN 30 days atorvastatin 10 mg PO BEDTIME 90 days blood sugar diagnostic (FreeStyle Lite Strips) DX: E11.9, test blood sugar three times a day, 30 days blood-glucose meter (FreeStyle Lite Meter kit) DX: E11.9, test blood sugar 4 times a day, duration 999 days blood-glucose meter,continuous ([employer] G7 Building Certifier) As directed, 999 days blood-glucose sensor ([employer] G7 Sensor device) As directed, 28 days bupropion HCl XL (Wellbutrin XL) 150 mg PO QAM cyclobenzaprine 10 mg PO BID PRN ferrous sulfate 325 mg PO DAILY 90 days fluticasone propionate 50 mcg/actuation (Flonase Allergy Relief) 1 spray intranasal Q12H 30 days lancets (FreeStyle Lancets) Test BS 3 times a day metformin 250 mg (1/2 x 500 mg) PO BID 30 days mirabegron ER (Myrbetriq) 25 mg PO DAILY 90 days naproxen 500 mg PO BID PRN semaglutide 0.5 mg (0.736 mL) subcut QWEEK 28 days HPI Comments Details: Rowena is a very pleasant 54-year-old female patient of Dr. Howard. She has a past medical history of asthma and diabetes. She presents to the office today for follow-up of her lower urinary tract symptoms. In discussion with the patient today she report to be doing and feeling well. She reports significant improvement in lower urinary tract symptoms of bladder pressure and feeling of incomplete bladder emptying she had been experiencing with Myrbetriq 25 mg daily. She currently denies any bothersome urinary issues. She discusses her upcoming wedding in February and has recently moved from [place] to [facility] with her fiance. In office urinalysis results reviewed with the patient today. PVR 0 mL. Previous workup has included a retroperitoneal ultrasound 02/17 noting bilateral kidneys with no calculi, lesions, and or hydronephrosis. The bladder is well distended and normal. Bilateral ureteral jets are demonstrated. Pre void bladder volume is approximately 215 mL. Postvoid bladder volume is approximately 20 mL. She otherwise denies hematuria, foul smelling urine, changes to urinary stream, flank pain, fever, and or chills. She continues with pelvic floor exercises at home. She otherwise denies any other issues or concerns at this time. [facility] Medical History Diabetes delivery delivered Asthma Surgical History H/O tubal ligation Family History Mother Breast cancer Sister Breast cancer Family/Other Leukemia Social History Household Members: Children [facility] Are you a primary career development coordinator to a significant other at home: No Do you presently have visiting nurse or other home services: No 75 years or older and lives alone: No Alcohol intake: current Patient Tobacco Use Status: Never used Tobacco e-Cigarette/Vaping Use: Never Used service: No Current occupational status: employed 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[employer] Cognitive needs: No Hearing needs: No Vision needs: Yes (Patient wears transition lenses) Female Reproductive History Menstrual Age of Menarche: 16 Review of Systems Const Reports no additional complaints Eyes Reports no additional complaints ENT Reports no additional complaints Card Reports no additional complaints Resp Reports as per HPI GI Reports no additional complaints Reports as per HPI Musc Reports no additional complaints Neuro Reports no additional complaints Psych Reports no additional complaints Endo Reports as per HPI Kt/Lymph Reports no additional complaints Aller/Immun Reports no additional complaints Physical Exam Const General: cooperative, healthy appearing, comfortable, no acute distress, well developed, alert and awake Orientation/consciousness: patient oriented x3 Limitations: no limitations HEENT Head: Yes normal to inspection, Yes normocephalic and Yes atraumatic Ears: hearing grossly normal bilaterally Eyes General: appearance normal, both eyes and all related structures Neck Neck: Yes normal visual inspection and Yes trachea midline Chest Chest palpation & inspection: normal inspection of the chest Resp Effort & Inspection: normal respiratory effort and able to speak in complete sentences Cardio Rate: regular rate GI Inspection: Yes normal to inspection General: Yes no CVA tenderness Back/Spine/Pelvis Back: no CVA tenderness Skin General skin exam: no rashes or lesions noted Neuro General: patient oriented x3 Extrem General: Yes normal to inspection Psych Appearance: grossly normal and well kempt Mental Status: mental status grossly normal Speech and movement: Normal speech and movement present and Clear speech present Affect: normal affect Attitude: cooperative Thought process: Normal thought process present Thought content: Normal thought content present Insight: Fair insight present (Psych) Judgement: Fair judgement present (Psych) Office Procedures Post Void Residual Post Residual Void Post Void Residual (PVR): 0 [id number]-[id number] Void Residual by ultrasound Results AMB Urinalysis, Automated UA Leukoctes 0 Ama/uL Last Edit by Ashley Strauss [facility] on 10/25/24 16:27 UA Nitrite Negative Last Edit by Ashley Strauss [facility] on 10/25/24 16:27 UA Urobilinogen 0.2 mg/dL Last Edit by Ashley Strauss [facility] on 10/25/24 16:27 UA Protein 15 mg/dL Last Edit by Ashley Strauss [facility] on 10/25/24 16:27 UA pH 6.0 Last Edit by Ashley Strauss [facility] on 10/25/24 16:27 UA Blood 0 Rolando/uL Last Edit by Ashley Strauss [facility] on 10/25/24 16:27 UA Specific [place] 1.020 Last Edit by Ashley Strauss [facility] on 10/25/24 16:27 UA Ketone Negative Last Edit by Ashley Strauss [facility] on 10/25/24 16:27 UA Bilirubin 0 mg/dL Last Edit by Ashley Strauss [facility] on 10/25/24 16:27 UA Glucose 0 mg/dL Last Edit by Ashley Strauss [facility] on 10/25/24 16:27 Results Reviewed Results Reviewed: Laboratory Last Values Urine pH (Auto) 6.0 10/25/24 16:18 Specific [place] (Auto) 1.020 10/25/24 16:18 Urine Protein (Auto) 15 mg/dL 10/25/24 16:18 Glucose (UA)(Auto) 0 mg/dL 10/25/24 16:18 Urine Ketones (Auto) Negative 10/25/24 16:18 Urine Blood (Auto) 0 Rolando/uL 10/25/24 16:18 Urine Nitrite (Auto) Negative 10/25/24 16:18 Urine Bilirubin (Auto) 0 mg/dL 10/25/24 16:18 Urine Urobilinogen (Auto) 0.2 mg/dL 10/25/24 16:18 Leukocyte Esterase (Auto) 0 Ama/uL 10/25/24 16:18 Assessment & Plan Assessment & Plan (1) Overactive bladder: Code(s): N32.81 - Overactive bladder Category: Medical (2) Lower urinary tract symptoms (LUTS): Code(s): R39.9 - Unspecified symptoms and signs involving the genitourinary system Category: Medical (3) Mixed stress and urge urinary incontinence: Code(s): N39.46 - Mixed incontinence Category: Medical (4) Sensation of pressure in bladder area: Code(s): R39.89 - Other symptoms and signs involving the genitourinary system Category: Medical Plan In office urinalysis results with the patient today; as noted above. PVR 0 mL. Continue Myrbetriq 25 mg daily as discussed and prescribed; refill provided. Discussed bladder triggers/irritants. Discussed, educated, and stressed the importance of managing diabetes for improvement lower urinary tract symptoms as well as overall health and well-being. Continue pelvic floor therapy; she is performing exercises at home. Discussed possible near future in office cystoscopy and or urodynamics if symptoms arise. Follow-up in 1 year with PVR; or sooner with any issues, concerns, and or questions. Orders: Orders AMB Urinalysis Automated Today Z13.9 - Encounter for screening, unspecified AMB Post Void Residual by ultrasound Today N32.81 - Overactive bladder Medications: Changed From mirabegron ER (Myrbetriq) 25 mg PO DAILY 30 days 30 tabs 3RF N32.81 - Overactive bladder, R35.1 - Nocturia To mirabegron ER (Myrbetriq) 25 mg PO DAILY 90 days 90 tabs 4RF N32.81 - Overactive bladder, R35.1 - Nocturia Patient Instructions: The patient had an opportunity to ask questions regarding the treatment plan. All questions were answered. Physical exam, labs, and imaging were discussed and reviewed in detail. As well as risks, benefits, and discussion of treatment choices. No major barriers to understanding were identified. The patient expressed understanding and agreement with the above treatment plan. The patient was made aware they should contact our office by phone for worsening of their current condition, the appearance of new symptoms, or with any questions or concerns. Compliance is encouraged with any medications and follow up testing that is ordered. It is a privilege to be allowed the opportunity to participate in? your urological care.? Again, if you have any questions or concerns If you have any questions or concerns please do not hesitate to contact me. The office is [phone]. This note is constructed using voice recognition software. While every effort has been made to ensure accuracy scooping machine tender errors may have been included. Yours sincerely, SOCORRO Russell Coding Level of Care Code Est Pt Level 3 (35530) Diagnoses Overactive bladder N32.81 Lower urinary tract symptoms (LUTS) R39.9 Mixed stress and urge urinary incontinence N39.46 Sensation of pressure in bladder area R39.89 CPT Codes Post Residual Void - PVR CPT Code: 14814-Radr Void Residual by ultrasound ([id number])
--- OUTSIDE RECORDS SUMMARY | 2024-10-25 17:39 | XMS_ITS | Clinical Summary ---
Author Organization [facility] Address [phone] [facility] [place] [address] Care Team Providers Care Health Informatics Advisor Name Role Phone Nell Carrera MD Primary Care Provider [phone]- [phone] Allergies Active Allergy Reactions Criticality Noted Date Comments Erythromycin 12/23/2022 Medications No known medications Active Problems No known active problems Immunizations Name Administration Dates Next Due Influenza Quadrivalent MDCK Preservative Free IM 06/17/2022 Pneumococcal polysaccharide PPSV23 04/13/2019 Tdap 04/13/2019 Social History Tobacco Use Types Packs/Day Years Used Date Smoking Tobacco: Never Smokeless Tobacco: Never Tobacco Cessation:Counseling Given: Not Answered Alcohol Use Standard Drinks/Week Comments Not Currently 0 (1 standard drink = 0.6 oz pur e alcohol) hardly ever per patient Education Answer Date Recorded Are you interested in more education? Not on britt e 01/22/2023 Are you concerned about learning? Not on file 01/22/2023 No 01/22/2023 No 01/22/2023 Digital Access Answer Date Recorded No 02/20/2023 No 02/20/2023 No 02/20/2023 Reliable internet access at home? Not on file 02/20/2023 Device with a working camera? Not on file Sex and Gender Information Value Date Recorded Sex Assigned at Not on file Gender Identity Not on file Sexual Orientation Not on file Last Filed Vital Signs Vital Sign Reading Time Taken Comments Blood Pressure 145/91 12/23/2022 3:20 PM EDT Pulse 87 12/23/2022 3:20 PM EDT Temperature 36.3 ??C (97.3 ??F) 12/23/2022 3:20 PM ED T Respiratory Rate 18 12/23/2022 3:20 PM EDT Oxygen Saturation 98% 12/23/2022 3:20 PM EDT Inhaled Oxygen Concentration - - Weight 96.2 kg (212 lb) 12/23/2022 3:20 PM EDT Height 162.6 cm (5' 4 ) 12/23/2022 3:20 PM EDT Body Mass Index 36.39 12/23/2022 3:20 PM EDT Plan of Treatment Health Maintenance Due Date Last Done Comments LIPID PANEL 1972 DEPRESSION SCREENING 1984 HEPATITIS B SCREENING 1990 HEPATITIS C SCREENING 1990 HIV ONE-TIME SCREENING (18-6 5 YEARS) 1990 HEPATITIS B VACCINES (1 of 3 - 19+ 3-dose series) 1991 PAP SMEAR 1993 SCREENING FOR DIABETES 2007 COLOGUARD 2017 COLONOSCOPY 2017 COLORECTAL CANCER SCREENING 2017 FIT TEST 2017 FOBT 2017 SIGMOIDOSCOPY 2017 VIRTUAL COLONOSCOPY 2017 PNEUMOCOCCAL VACCINES (50+ years) (2 of 2 - PCV) 2022 04/13/2019 ZOSTER VACCINES (1 of 2) 2022 INFLUENZA VACCINE (#1) 2024 06/17/2022 MAMMOGRAM 05/11/2024 05/11/2022 COVID-19 VACCINE (4 - 2023-2 5 season) 2024 07/25/2021, 12/20/2020, 11/22/2020 Adult Td,Tdap Booster 04/13/2029 04/13/2019 SMOKING STATUS SCREENING (On ce After 26 Yrs) Completed 12/23/2022 HEPATITIS A VACCINES Aged Out No long er eligible based on patient's age to complete this topic HIB VACCINES Aged Out No longer eligi ble based on patient's age to complete this topic MENINGOCOCCAL VACCINES (ACWY) Aged Out No longer eligible based on patient's age to complete this topic Medical Devices Not on file Care Teams Health Informatics Advisor Relationship Specialty Start Date End Date Nell Carrera MD [address] [facility] [address] PCP - General Internal Medicine 12/23/22 Additional Source Comments The information contained in this document represents components of the legal health record. It is not the complete legal health record.[facility]
== END 2024-10-25 16:36 | disposition home or self-care (01) ==
PROVIDERS: PCP Family Medicine; Visit Provider Nurse Practitioner Family
DX: N32.81 Overactive bladder (principal); R39.9 Unspecified symptoms and signs involving the genitourinary system; N39.46 Mixed incontinence; R39.89 Other symptoms and signs involving the genitourinary system; Z13.9 Encounter for screening, unspecified
CPT/HCPCS: 99213

== ENCOUNTER → 2024-10-25 15:52 | Outpatient (BNVA) | payer BC, SELFPAY | PROVIDERS: PCP Family Medicine; Visit Provider Nurse Practitioner Family | DX: N32.81 Overactive bladder (principal); R39.9 Unspecified symptoms and signs involving the genitourinary system; N39.46 Mixed incontinence; R39.89 Other symptoms and signs involving the genitourinary system; Z79.899 Other long term (current) drug therapy | CPT/HCPCS: 51798; 81003 ==

== ENCOUNTER 2024-11-01 10:19 | Outpatient (AMB) | payer BC, SELFPAY ==
--- NOTE | 2024-11-01 10:34 | MHC.PC.OV ---
Vital Signs 11/01/24 10:37 Height 5 ft 5 in Weight 201 lb 2 oz BMI 33.5 BP 142/76 H Blood Pressure Location Rt brachial Position Sitting Respiration 13 Pulse 86 Pulse Source Pulse Oximeter Temp 97.3 F Temp Source Oral Pulse Oximetry (%) 97 Oxygen Delivery Method Room Air Intake Visit Reasons: med review Intake Note: follow up on med review Chief Relay Tester Required: No Allergies azithromycin Allergy (Unknown, Verified 11/01/24 10:35) stomach upset Medication List - Last Reconciled 11/01/24 by Graham Howard MD albuterol sulfate 90 mcg/actuation 2 puffs inhalation Q4-6H PRN 30 days atorvastatin 10 mg PO BEDTIME 90 days blood sugar diagnostic (FreeStyle Lite Strips) DX: E11.9, test blood sugar three times a day, 30 days blood-glucose meter (FreeStyle Lite Meter kit) DX: E11.9, test blood sugar 4 times a day, duration 999 days blood-glucose meter,continuous ([employer] G7 Home Care Liaison) As directed, 999 days blood-glucose sensor ([employer] G7 Sensor device) As directed, 28 days bupropion HCl XL (Wellbutrin XL) 150 mg PO QAM cyclobenzaprine 10 mg PO BID PRN ferrous sulfate 325 mg PO DAILY 90 days fluticasone propionate 50 mcg/actuation (Flonase Allergy Relief) 1 spray intranasal Q12H 30 days lancets (FreeStyle Lancets) Test BS 3 times a day metformin 250 mg (1/2 x 500 mg) PO BID 30 days mirabegron ER (Myrbetriq) 25 mg PO DAILY 90 days naproxen 500 mg PO BID PRN semaglutide 0.5 mg (0.736 mL) subcut QWEEK 28 days Tobacco use date assessed: 08/30/24 Dental Screening Dental Screen Date: 08/30/24 HPI med review HPI Details 54 y/o female presents to f/u chronic conditions. She notes she would like to talk about her weight today. Hx of diabetes. Reports ongoing difficuty losing weight and she would like to increse her ozempic. 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 1. Little interest or pleasure in doing things: not at all 2. Feeling down, depressed, or hopeless: not at all 3. Trouble falling or staying asleep, or sleeping too much: not at all 4. Feeling tired or having little energy: several days 5. Poor appetite or overeating: not at all 6. Feeling bad about yourself - or that you are a failure or have let yourself or your family down: not at all 7. Trouble concentrating on things, such as reading the newspaper or watching television: not at all 8. Moving or speaking so slowly that other people could have noticed. Or the opposite - being so fidgety or restless that you have been moving around a lot more than usual: not at all 9. Thoughts that you would be better off or of hurting yourself in some way: not at all Total score: 1 29678 - PHQ-9 Billing: Yes Source: Developed by Drs. Lenin Ortiz, Felicia Pitts, Amador Rodarte and colleagues, with an educational marichuy from [employer]. Thrive Questionnaire Date Thrive assessed: 11/01/24 I am a: Patient What is your living situation today?: I have a steady place to live Within the past 12 months, did the food you bought not last and you didn't have the money to get more?: Never true Within the past 12 months, did you worry whether your food would run out before you got money to buy more?: Never true Do you have trouble paying for medicines?: No Do you have trouble getting transportation to medical appointments?: No Do you have trouble paying your heating and electricity bill?: No Do you have trouble taking care of your child, family member or friend?: No Do you have trouble with day-to-day activities such as bathing, preparing meals, shopping, managing finances, etc.?: No Are you currently unemployed and looking for a job?: No Are you interested in more education?: No Please select the resources that you would like help with: None Currently or been in a relationship where the following occur: No concerns reported THRIVE Score: 0 AUDIT C Alcohol Use Questionnaire (AUDIT-C) 1. How often do you have a drink containing alcohol?: Never 2. How many drinks containing alcohol do you have on a typical day when you are drinking?: 1 or 2 3. How often do you have six or more drinks on one occasion?: Never Total Score: 0 ROBERTO-7 AMB Questionnaire ROBERTO-7 Date ROBERTO - 7 assessed: 11/01/24 Feeling nervous, anxious, or on edge: 0 = Not at all Not being able to stop or control worryin = Not at all Worrying too much about different things: 0 = Not at all Trouble relaxin = Several days Being so restless that it is hard to sit still: 0 = Not at all Becoming easily annoyed or irritable: 0 = Not at all Feeling afraid as if something awful might happen: 0 = Not at all Total ROBERTO-7 score (0-4 normal; 5-9 mild; 10-14 moderate; 15-21 severe): 1 Source: Developed by Drs. Lenin Ortiz, Felicia Pitts, Amador Rodarte and colleagues, with an educational marichuy from [employer]. ROBERTO-7 Assessment Billing ROBERTO-7 Assessment Tool: ROBERTO-7 Assessment 03639 Physical exam (Primary Care) Vital Signs: Last Vital Signs Temp 97.3 F 11/01/24 10:37 Pulse 86 11/01/24 10:37 Resp 13 11/01/24 10:37 BP 142/76 H 11/01/24 10:37 Pulse Ox 97 11/01/24 10:37 Oxygen Delivery Method Room Air 11/01/24 10:37 BMI result Body Mass Index 33.5 Tobacco/Smoking Status: Tobacco use Status Tobacco use date assessed 08/30/24 11/01/24 10:36 Patient Tobacco Use Status Never used Tobacco 11/01/24 10:36 e-Cigarette/Vaping Use Never Used 11/01/24 10:36 PHQ-9: PHQ-9 Score PHQ-9: Total score 1 11/01/24 10:36 Thrive Assessment: Date of Thrive Assessment Date Thrive assessed 11/01/24 11/01/24 10:36 Currently or been in a relationship where the following occur: No concerns reported Coding Level of Care Code Est Pt Level 4 (35063) Diagnoses Obesity E66.9 Type 2 diabetes mellitus with hyperglycemia, without long-term current use of insulin E11.65 Diabetes mellitus complication status: with hyperglycemia Diabetes mellitus shelter insulin use: without shelter use Back pain M54.9 Additional Codes ROBERTO-7 Assessment Billing - ROBERTO-7 Assessment Tool: ROBERTO-7 Assessment 79472 ([id number]) PHQ-9 - 02694 - PHQ-9 Billing: Yes ([id number]) Assessment & Plan Assessment & Plan (1) Obesity: Code(s): E66.9 - Obesity, unspecified Category: Medical Plan: Patient?has?had?ongoing?difficulty?with?any?weight?loss. She?had?Ozempic?decreased?due?to?some?concerns?of?low?blood?sugars. She?is?taking?her?medications?as?prescribed?and?has?had?no?blood?sugars.??She?would?like?to?increase?Ozempic Will?increase?Ozempic?would?have?her?discontinue?metformin. She?can?add?back?metformin?250?mg?daily?needed?for?elevated?blood?sugars She?has?an?appointment?she?is?doing?regarding?weight?loss?in?blood?sugar. (2) DM2 (diabetes mellitus, type 2): Code(s): E11.9 - Type 2 diabetes mellitus without complications Category: Medical Qualifiers: Diabetes mellitus complication status: with hyperglycemia Diabetes mellitus roasterman insulin use: without shelter use Qualified Code(s): E11.65 - Type 2 diabetes mellitus with hyperglycemia Plan: As?above (3) Back pain: Code(s): M54.9 - Dorsalgia, unspecified Category: Medical Plan: Had?suspected?that?her?discomfort?was?due?to?and?muscular?strain.??Patient?notes?that?this?has?resolved. Had?check?lipase?level?as?patient?is?concerned?regarding?pancreatitis?and?this?was well in?the?normal?range Medications: Changed From semaglutide 0.5 mg (0.736 mL) subcut QWEEK 28 days 2.944 mL 2RF E11.65 - Type 2 diabetes mellitus with hyperglycemia To semaglutide 1 mg (0.75 mL) subcut QWEEK 28 days 3 mL 2RF E11.65 - Type 2 diabetes mellitus with hyperglycemia
[2024-11-01 10:37] VITALS: BP 142/76; PULSE 86; RESP 13; TEMP 36.3; O2SAT 97; BMI 33.5
--- OUTSIDE RECORDS SUMMARY | 2024-11-01 11:13 | XMS_ITS | Clinical Summary ---
Author Organization [facility] Address [phone] [facility] [address] [place] [address] Care Team Providers Care Boiler Room Operator Name Role Phone Nell Carrera MD Primary Care Provider [phone]- [phone] Allergies Active Allergy Reactions Criticality Noted Date [...] Medical Devices Not on file Care Teams Boiler Room Operator Relationship Specialty Start Date End Date Nell Carrera MD [address] [facility] [address] PCP - General Internal Medicine 12/23/22 Additional Source Comments The information contained in this document represents components of the legal health record. It is not the complete legal health record.[facility]
== END 2024-11-01 11:18 | disposition home or self-care (01) ==
PROVIDERS: PCP Family Medicine; Visit Provider Family Medicine
DX: E11.65 Type 2 diabetes mellitus with hyperglycemia (principal); E66.9 Obesity, unspecified; M54.9 Dorsalgia, unspecified; Z68.33 Body mass index [BMI] 33.0-33.9, adult

== ENCOUNTER → 2024-11-01 10:19 | Outpatient (BNVA) | payer BC, SELFPAY | PROVIDERS: PCP Family Medicine; Visit Provider Family Medicine | DX: E66.9 Obesity, unspecified (principal); Z68.33 Body mass index [BMI] 33.0-33.9, adult; E11.65 Type 2 diabetes mellitus with hyperglycemia; M54.9 Dorsalgia, unspecified | CPT/HCPCS: 96127 ==

== ENCOUNTER 2024-12-15 16:11 | Outpatient (AMB) | payer BC, SELFPAY ==
--- NOTE | 2024-12-15 16:15 | MHC.PC.OV ---
Vital Signs 12/15/24 16:20 12/15/24 16:30 Height 5 ft 5 in Weight 204 lb 4 oz BMI 34.0 BP 148/84 H 136/90 H Blood Pressure Location Lt brachial Lt brachial Position Sitting Sitting Respiration 12 Pulse 96 Pulse Source Pulse Oximeter Pulse Oximetry (%) 96 Oxygen Delivery Method Room Air Intake Visit Reasons: f/u diabetes, chronic conditions - see comments Intake Note: Follow up diabetes. Outbound Call Center Representative Required: No Allergies azithromycin Allergy (Unknown, Verified 12/15/24 16:18) stomach upset Tobacco use date assessed: 12/15/24 Dental Screening Dental Screen Date: 08/30/24 HPI f/u diabetes, chronic conditions - see comments HPI Details 54 y/o female presents to f/u diabetes, chronic conditions. A1c today 12/15/24 5.8%. She is on semaglutide 1mg. She notes she had a recent diabetic eye exam which was fine. Blood pressure today 136/90. She is not on anything for her blood pressures. HPI Comments History of Present Illness Details Documentation assistance for Graham Howard MD, was provided by Daniel Bond,? Content Administrator on 12/15/2024 at 4:50 PM EST. I, Dr. Howard, have read, observed, and verified documentation. ?? [facility] Medical History Diabetes delivery delivered Asthma Surgical History H/O tubal ligation Family History Mother Breast cancer Sister Breast cancer Family/Other Leukemia Social History (Updated 12/15/24 @ 16:34 by Corry Lentz CMA) Household Members: Children Housing: Condominium Are you a primary medicare specialist to a significant other at home: No Do you presently have visiting nurse or other home services: No 75 years or older and lives alone: No Alcohol intake: current Patient Tobacco Use Status: Never used Tobacco e-Cigarette/Vaping Use: Never Used service: No Current occupational status: employed 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 1. Little interest or pleasure in doing things: not at all 2. Feeling down, depressed, or hopeless: not at all 3. Trouble falling or staying asleep, or sleeping too much: not at all 4. Feeling tired or having little energy: not at all 5. Poor appetite or overeating: not at all 6. Feeling bad about yourself - or that you are a failure or have let yourself or your family down: not at all 7. Trouble concentrating on things, such as reading the newspaper or watching television: not at all 8. Moving or speaking so slowly that other people could have noticed. Or the opposite - being so fidgety or restless that you have been moving around a lot more than usual: not at all 9. Thoughts that you would be better off or of hurting yourself in some way: not at all Total score: 0 Depression Screening Interpretation: Negative Depression Screening Done: Yes 28962 - PHQ-9 Billing: Yes Source: Developed by Drs. Lenin Ortiz, Felicia Pitts, Amador Rodarte and colleagues, with an educational marichuy from [employer]. Thrive Questionnaire Date Thrive assessed: 10/25/24 I am a: Patient What is your living situation today?: I have a steady place to live Within the past 12 months, did the food you bought not last and you didn't have the money to get more?: Never true Within the past 12 months, did you worry whether your food would run out before you got money to buy more?: Never true Do you have trouble paying for medicines?: No Do you have trouble getting transportation to medical appointments?: No Do you have trouble paying your heating and electricity bill?: No Do you have trouble taking care of your child, family member or friend?: No Do you have trouble with day-to-day activities such as bathing, preparing meals, shopping, managing finances, etc.?: No Are you currently unemployed and looking for a job?: No Are you interested in more education?: No Please select the resources that you would like help with: None Currently or been in a relationship where the following occur: No concerns reported THRIVE Score: 0 ROBERTO-7 AMB Questionnaire ROBERTO-7 Date ROBERTO - 7 assessed: 12/15/24 Feeling nervous, anxious, or on edge: 0 = Not at all Not being able to stop or control worryin = Not at all Worrying too much about different things: 0 = Not at all Trouble relaxin = Not at all Being so restless that it is hard to sit still: 0 = Not at all Becoming easily annoyed or irritable: 0 = Not at all Feeling afraid as if something awful might happen: 0 = Not at all Total ROBERTO-7 score (0-4 normal; 5-9 mild; 10-14 moderate; 15-21 severe): 0 Source: Developed by Drs. Lenin Ortiz, Felicia Pitts, Amador Rodarte and colleagues, with an educational marichuy from [employer]. ROBERTO-7 Assessment Billing ROBERTO-7 Assessment Tool: ROBERTO-7 Assessment 76228 Review of Systems Const Denies chills, Denies fatigue, Denies fever(s), Denies headache(s) and Denies weakness ENT Denies dizziness and Denies headache(s) Card Denies dyspnea Resp Denies cough, Denies dyspnea, Denies wheezing and Denies other (shortness of breath) Musc Denies numbness and Denies tingling Neuro Denies dizziness, Denies headache(s), Denies numbness, Denies tingling and Denies weakness Psych Denies anxiety and Denies depression Endo Denies fatigue Aller/Immun Denies wheezing Physical exam (Primary Care) Vital Signs: Last Vital Signs Pulse 96 12/15/24 16:20 Resp 12 12/15/24 16:20 BP 136/90 H 12/15/24 16:30 Pulse Ox 96 12/15/24 16:20 Oxygen Delivery Method Room Air 12/15/24 16:20 BMI result Body Mass Index 34.0 Tobacco/Smoking Status: Tobacco use Status Tobacco use date assessed 12/15/24 12/15/24 16:26 Patient Tobacco Use Status Never used Tobacco 12/15/24 16:34 e-Cigarette/Vaping Use Never Used 12/15/24 16:34 PHQ-9: PHQ-9 Score PHQ-9: Total score 0 12/15/24 16:48 Depression Screening Interpretation: Negative Thrive Assessment: Date of Thrive Assessment Date Thrive assessed 10/25/24 12/15/24 16:17 Currently or been in a relationship where the following occur: No concerns reported Const General: well developed; No acute distress Nutritional Appearance: well nourished and obese Orientation/consciousness: patient oriented x3 HENMT Head: Yes normocephalic and Yes atraumatic Eyes General: appearance normal, both eyes and all related structures Pupils: Equal, round and reactive pupils present EOM: EOMs intact bilaterally Resp Effort & Inspection: normal respiratory effort Auscultation: clear to auscultation bilaterally Cardio Rate: regular rate Rhythm: regular rhythm Heart sounds: S1 normal heart sound present, S2 normal heart sound present, no gallops, no murmurs and no rubs Neuro General: patient oriented x3 and gait normal Cranial nerves: Yes Equal, round and reactive pupils present Psych Affect: normal affect Results AMB Hemoglobin A1c AMB Hemoglobin A1c 5.8 % Last Edit by Corry Lentz CMA on 12/15/24 16:32 Results Reviewed Results Reviewed: Laboratory Last Values Hgb A1c (Clinic) 5.8 % (4.0-6.0) 12/15/24 16:31 Coding Level of Care Code Est Pt Level 4 (29159) Diagnoses Type 2 diabetes mellitus with hyperglycemia, without long-term current use of insulin E11.65 Diabetes mellitus complication status: with hyperglycemia Diabetes mellitus nursing home insulin use: without nursing home use Obesity E66.9 Hypertension I10 Additional Codes ROBERTO-7 Assessment Billing - ROBERTO-7 Assessment Tool: ROBERTO-7 Assessment 89303 ([id number]) PHQ-9 - 79599 - PHQ-9 Billing: Yes ([id number]) Assessment & Plan Assessment & Plan (1) DM2 (diabetes mellitus, type 2): Code(s): E11.9 - Type 2 diabetes mellitus without complications Category: Medical Qualifiers: Diabetes mellitus complication status: with hyperglycemia Diabetes mellitus intermediate card tender insulin use: without intermediate card tender use Qualified Code(s): E11.65 - Type 2 diabetes mellitus with hyperglycemia Plan: A1c?5.8%.??Good?control.??Goal?is?less?than?7.0% Patient?is?trying?to?lose?weight?as?well?however?and?Ozempic?has?not?been?making?any?changes.??She?would?like?to?try?[place] Will?switch?to?[place] She?should?watch?her?blood?sugars?to?make?sure?that?they?remain?well?controlled. If?she?is?unable?to?get?that?medication?she?should?continue?Ozempic?for?now. (2) Obesity: Code(s): E66.9 - Obesity, unspecified Category: Medical Plan: As?above (3) Hypertension: Code(s): I10 - Essential (primary) hypertension Category: Medical Plan: Blood?pressure?is?are?still?too?high. Start?losartan Will?follow?at?next?visit Orders: Orders AMB Hemoglobin A1c Today E11.65 - Type 2 diabetes mellitus with hyperglycemia Medications: New tirzepatide (Mounjaro) 7.5 mg (0.5 mL) subcut QWEEK 2 mL 3RF 28 days losartan 25 mg PO DAILY 90 tabs 3RF 90 days
[2024-12-15 16:20] VITALS: BP 148/84; PULSE 96; RESP 12; O2SAT 96; BMI 34.0
[2024-12-15 16:30] VITALS: BP 136/90
== END 2024-12-15 16:59 | disposition home or self-care (01) ==
LOC: HO.HMCFM 16:12
PROVIDERS: PCP Family Medicine; Visit Provider Family Medicine
DX: E11.65 Type 2 diabetes mellitus with hyperglycemia (principal); E66.9 Obesity, unspecified; I10 Essential (primary) hypertension; Z68.34 Body mass index [BMI] 34.0-34.9, adult

== ENCOUNTER → 2024-12-15 16:11 | Outpatient (BNVA) | payer BC, SELFPAY | PROVIDERS: PCP Family Medicine; Visit Provider Family Medicine | DX: E11.65 Type 2 diabetes mellitus with hyperglycemia (principal); I10 Essential (primary) hypertension; E66.9 Obesity, unspecified; Z68.34 Body mass index [BMI] 34.0-34.9, adult | CPT/HCPCS: 83036; 96127 ==

== ENCOUNTER 2025-03-21 11:29 | Outpatient (AMB) | payer BC, SELFPAY ==
--- NOTE | 2025-03-21 11:51 | A.OFFPC_ITS ---
Vital Signs 03/21/25 11:59 Height 5 ft 5 in Weight 189 lb 8 oz BMI 31.5 BP 116/78 Blood Pressure Location Lt brachial Position Sitting Respiration 16 Pulse 76 Pulse Source Pulse Oximeter Temp 98.1 F Temp Source Oral Pulse Oximetry (%) 97 Oxygen Delivery Method Room Air Intake Visit Reasons: f/u diabetes, HTN Intake Note: patient is scheduled for follow up dm and htn Dental Service Technician Required: No Allergies azithromycin Allergy (Unknown, Verified 03/21/25 11:58) stomach upset Medication List - Last Reconciled 03/21/25 by Graham Howard MD albuterol sulfate 90 mcg/actuation 2 puffs inhalation Q4-6H PRN 30 days atorvastatin 10 mg PO BEDTIME 90 days blood sugar diagnostic (FreeStyle Lite Strips) DX: E11.9, test blood sugar three times a day, 30 days blood-glucose meter (FreeStyle Lite Meter kit) DX: E11.9, test blood sugar 4 times a day, duration 999 days blood-glucose sensor (Dexcom G7 Sensor device) As directed, 28 days blood-glucose,freight checker,cont (Dexcom G7 Tailings Worker) As directed, 999 days bupropion HCl XL (Wellbutrin XL) 150 mg PO QAM ferrous sulfate 325 mg PO DAILY 90 days fluticasone propionate 50 mcg/actuation (Flonase Allergy Relief) 1 spray intranasal Q12H 30 days lancets (FreeStyle Lancets) Test BS 3 times a day losartan 25 mg PO DAILY 90 days mirabegron ER (Myrbetriq) 25 mg PO DAILY 90 days tirzepatide 10 mg (0.5 mL) subcut QWEEK 28 days Tobacco use date assessed: 12/15/24 Dental Screening Dental Screen Date: 08/30/24 HPI f/u diabetes, HTN HPI Details 54 y/o female presents to f/u diabetes, HTN. BP today 116/78, 76p. She is on losartan 25mg. A1c today 6.0%. She is on mounjaro. HPI Comments History of Present Illness Details Documentation assistance for Graham Howard MD, was provided by Daniel Bond,? Supplemental Manager on 03/21/2025 at 12:22 PM EST. I, Dr. Howard, have read, observed, and verified documentation. [facility] Medical History Diabetes delivery delivered Asthma Surgical History H/O tubal ligation Family History Mother Breast cancer Sister Breast cancer Family/Other Leukemia Social History (Updated 12/15/24 @ 16:34 by Corry Lentz CMA) Household Members: Children Housing: Condominium Are you a primary caregiver services home to a significant other at home: No Do you presently have visiting nurse or other home services: No 75 years or older and lives alone: No Alcohol intake: current Patient Tobacco Use Status: Never used Tobacco e-Cigarette/Vaping Use: Never Used service: No Current occupational status: employed 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[employer] Current occupational exposures/hazards: No Cognitive needs: No Hearing needs: No Vision needs: Yes (Patient wears transition lenses) Female Reproductive History Menstrual Age of Menarche: 16 Questionnaire Thrive Questionnaire Date Thrive assessed: 10/25/24 I am a: Patient What is your living situation today?: I have a steady place to live Within the past 12 months, did the food you bought not last and you didn't have the money to get more?: Never true Within the past 12 months, did you worry whether your food would run out before you got money to buy more?: Never true Do you have trouble paying for medicines?: No Do you have trouble getting transportation to medical appointments?: No Do you have trouble paying your heating and electricity bill?: No Do you have trouble taking care of your child, family member or friend?: No Do you have trouble with day-to-day activities such as bathing, preparing meals, shopping, managing finances, etc.?: No Are you currently unemployed and looking for a job?: No Are you interested in more education?: No Please select the resources that you would like help with: None Currently or been in a relationship where the following occur: No concerns reported THRIVE Score: 0 ROBERTO-7 AMB Questionnaire ROBERTO-7 Date ROBERTO - 7 assessed: 12/15/24 Source: Developed by Drs. Lenin Ortiz, Felicia Pitts, Amador Rodarte and colleagues, with an educational marichuy from [employer]. Review of Systems Const Denies chills, Denies fatigue, Denies fever(s), Denies headache(s) and Denies weakness ENT Denies dizziness and Denies headache(s) Card Denies dyspnea Resp Denies cough, Denies dyspnea, Denies wheezing and Denies other (shortness of breath) Musc Denies numbness and Denies tingling Neuro Denies dizziness, Denies headache(s), Denies numbness, Denies tingling and Denies weakness Psych Denies anxiety and Denies depression Endo Denies fatigue Aller/Immun Denies wheezing Physical exam (Primary Care) Vital Signs: Last Vital Signs Temp 98.1 F 03/21/25 11:59 Pulse 76 03/21/25 11:59 Resp 16 03/21/25 11:59 BP 116/78 03/21/25 11:59 Pulse Ox 97 03/21/25 11:59 Oxygen Delivery Method Room Air 03/21/25 11:59 BMI result Body Mass Index 31.5 Tobacco/Smoking Status: Tobacco use Status Tobacco use date assessed 12/15/24 03/21/25 11:52 Patient Tobacco Use Status Never used Tobacco 03/21/25 11:52 e-Cigarette/Vaping Use Never Used 03/21/25 11:52 Thrive Assessment: Date of Thrive Assessment Date Thrive assessed 10/25/24 03/21/25 11:52 Currently or been in a relationship where the following occur: No concerns reported Const General: well developed; No acute distress Nutritional Appearance: well nourished Orientation/consciousness: patient oriented x3 [facility] Head: Yes normocephalic and Yes atraumatic Eyes General: appearance normal, both eyes and all related structures Pupils: Equal, round and reactive pupils present EOM: EOMs intact bilaterally Resp Effort & Inspection: normal respiratory effort Auscultation: clear to auscultation bilaterally Cardio Rate: regular rate Rhythm: regular rhythm Heart sounds: S1 normal heart sound present, S2 normal heart sound present, no gallops, no murmurs and no rubs Neuro General: patient oriented x3 and gait normal Cranial nerves: Yes Equal, round and reactive pupils present Psych Affect: normal affect Coding Level of Care Code Est Pt Level 4 (85680) Diagnoses Hypertension I10 Type 2 diabetes mellitus with hyperglycemia, without long-term current use of insulin E11.65 Diabetes mellitus complication status: with hyperglycemia Diabetes mellitus [place] [facility] insulin use: without manager long term care use Obesity E66.9 Assessment & Plan Assessment & Plan (1) Hypertension: Code(s): I10 - Essential (primary) hypertension Category: Medical Plan: Blood?pressure?now?well?controlled?after?starting?losartan.??Goal?is?less?than?1 Continue?current?medication (2) DM2 (diabetes mellitus, type 2): Code(s): E11.9 - Type 2 diabetes mellitus without complications Category: Medical Qualifiers: Diabetes mellitus complication status: with hyperglycemia Diabetes mellitus manager long term care insulin use: without [place] [facility] use Qualified Code(s): E11.65 - Type 2 diabetes mellitus with hyperglycemia Plan: A1c?6.0%?which?is?slightly?higher?than?her?prior?check.??Still?well?controlled?a nd?goal?is?less?than?7.0% She?was?switched?to?Mounjaro?from?Ozempic.??Sh e?notes?that?she?has?no?adverse?effects?with?Mounjaro?as?opposed?to?Ozempic. She?would?like?to?increase?the?dose. Will?increase?from?Mounjaro?7.5?mg?weekly?to?Lombardi?10?mg?weekly Continue?diabetic?diet?exercise?and?weight?loss Patient?has?appointment?with?new?desk editor?and?I?sent?referral. (3) Obesity: Code(s): E66.9 - Obesity, unspecified Category: Medical Plan: Patient?has?lost?15?lb?since?starting?Mounjaro Increasing?dose?today?as?mentioned?above Continue?to?work?on?weight?loss Orders: Referrals Ophthalmology Referral E11.649 - Type 2 diabetes mellitus with hypoglycemia without coma Medications: Changed From tirzepatide (Mounjaro) 7.5 mg (0.5 mL) subcut QWEEK 28 days 2 mL 3RF To tirzepatide 10 mg (0.5 mL) subcut QWEEK 2 mL 3RF 28 days Refilled albuterol sulfate 90 mcg/actuation 2 puffs inhalation Q4-6H PRN 8.5 grams 4RF shortness of breath or wheezing 30 days
[2025-03-21 11:59] VITALS: BP 116/78; PULSE 76; RESP 16; TEMP 36.7; O2SAT 97; BMI 31.5
== END 2025-03-21 12:26 | disposition home or self-care (01) ==
LOC: HO.HMCFM 11:30
PROVIDERS: PCP Family Medicine; Visit Provider Family Medicine
DX: I10 Essential (primary) hypertension (principal); E11.65 Type 2 diabetes mellitus with hyperglycemia; E66.9 Obesity, unspecified; Z68.31 Body mass index [BMI] 31.0-31.9, adult

== ENCOUNTER → 2025-03-21 11:29 | Outpatient (BNVA) | payer BC, SELFPAY | PROVIDERS: PCP Family Medicine; Visit Provider Family Medicine | DX: E11.65 Type 2 diabetes mellitus with hyperglycemia (principal); I10 Essential (primary) hypertension; E66.9 Obesity, unspecified; Z68.31 Body mass index [BMI] 31.0-31.9, adult | CPT/HCPCS: 83036 ==

== ENCOUNTER 2025-05-21 15:51 | Outpatient (REF) | payer BC, SELFPAY | END 2025-05-21 15:52 | disposition home or self-care (01) | LOC: HO.MAMMO 15:51 | PROVIDERS: PCP Family Medicine; Visit Provider Family Medicine | DX: Z12.31 Encounter for screening mammogram for malignant neoplasm of breast (principal) | CPT/HCPCS: 77063; 77067 ==

== ENCOUNTER → 2025-05-21 16:00 | Outpatient (BNV) | payer BC, SELFPAY | PROVIDERS: PCP Family Medicine; Visit Provider Radiology Body Imaging | DX: Z12.31 Encounter for screening mammogram for malignant neoplasm of breast (principal) | CPT/HCPCS: 77063; 77067 ==

== ENCOUNTER 2025-06-26 15:43 | Outpatient (AMB) | payer BC, SELFPAY ==
--- NOTE | 2025-06-26 15:46 | A.OFFVIS_ITS ---
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 Has no concerns today. Assembler 1St Shift Required: No Information Interpreted: non-clinical & clinical Automatic Line Set Up Mechanic: Automatic Line Set Up Mechanic Present (Regine ) Accompanied by: Self / Same As Patient Allergies azithromycin Allergy (Unknown, Verified 06/26/25 15:52) stomach upset Medication List - Last Reconciled 06/26/25 by Kimi Grijalva LPN albuterol sulfate 90 mcg/actuation 2 puffs inhalation Q4-6H PRN 30 days atorvastatin 10 mg PO BEDTIME 90 days blood sugar diagnostic (FreeStyle Lite Strips) DX: E11.9, test blood sugar three times a day, 30 days blood-glucose meter (FreeStyle Lite Meter kit) DX: E11.9, test blood sugar 4 times a day, duration 999 days blood-glucose sensor (Dexcom G7 Sensor device) As directed, 28 days blood-glucose,natural foods clerk,cont (Dexcom G7 Bottom Turning Lathe Tender) As directed, 999 days bupropion HCl XL (Wellbutrin XL) 150 mg PO QAM ferrous sulfate 325 mg PO DAILY 90 days fluticasone propionate 50 mcg/actuation (Flonase Allergy Relief) 1 spray intranasal Q12H 30 days lancets (FreeStyle Lancets) Test BS 3 times a day losartan 25 mg PO DAILY 90 days mirabegron ER (Myrbetriq) 25 mg PO DAILY 90 days tirzepatide 10 mg (0.5 mL) subcut QWEEK 28 days Is last menstrual period known: Yes Last menstrual period: 02/25/25 Do you need a note to return to daycare/school/sports/work: No HPI Comments Details: Patient is a postmenopausal woman presenting for her annual president examination. Associate Director Career Services concerns: none. Currently sexually active. Menses spacing. Menses spacing, LMP early February, 3 cycles in the last year admits to hot flashes Denies any vaginal dryness or irritation. STI testing offered; she declines. Attempting to eat a healthy diet with calcium and vitamin D and stays active with exercise, uses a treadmill. Last pap smear; 2023 negative, cytology only. Last mammogram; 2024. Colonoscopy is UTD. FH breast cancer-sister diagnosed at age 50, negative BCRA. Mother diagnosed approximately age 68. [facility] Medical History FH: breast cancer in first degree relative Diabetes delivery delivered Asthma Surgical History H/O tubal ligation Family History Mother Breast cancer, Onset Age: 68 Sister Breast cancer, Onset Age: 50 Family/Other Leukemia Social History Household Members: Spouse Housing: House Are you a primary child day care center worker to a significant other at home: No Do you presently have visiting nurse or other home services: No 75 years or older and lives alone: No Alcohol intake: current Patient Tobacco Use Status: Never used Tobacco e-Cigarette/Vaping Use: Never Used service: No Current occupational status: employed 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[employer] Current occupational exposures/hazards: No Cognitive needs: No Hearing needs: No Vision needs: Yes (Patient wears transition lenses) Female Reproductive History Menstrual Age of Menarche: 16 Date of last menstrual period: 02/25/25 control method: permanent sterilization Total pregnancies: 2 Number of Living Children: 2 Date of last pap smear: 11/30/23 History of abnormal pap smear: No Date of Mammogram: 05/21/25 Review of Systems Const All systems reviewed & are unremarkable except as noted in HPI and below Reports as per HPI Eyes Reports no additional complaints ENT Reports no additional complaints Card Reports no additional complaints Resp Reports no additional complaints GI Reports as per HPI and Reports no additional complaints Reports as per HPI Musc Reports no additional complaints Skin/Breast Reports as per HPI Neuro Reports no additional complaints Psych Reports no additional complaints Endo Reports no additional complaints Kt/Lymph Reports no additional complaints Aller/Immun Reports no additional complaints Physical Exam Vital Signs: Last Vital Signs BP 112/72 06/26/25 15:57 BMI result Body Mass Index 30.9 Const General: cooperative, healthy appearing, no acute distress, well developed and alert Orientation/consciousness: patient oriented x3 HEENT Head: Yes normal to inspection Eyes General: appearance normal, both eyes and all related structures Neck Neck: Yes normal visual inspection Thyroid: Thyroid normal Chest Chest palpation & inspection: normal inspection of the chest and other (no puckering, dimpling, peau de orange, retraction, discharge, masses) Breast/axilla inspection: normal inspection of the breasts Breast/axilla palpation: normal palpation of the breasts Resp Effort & Inspection: normal respiratory effort GI Inspection: Yes normal to inspection Palpation (GI): Soft to palpation Rectal Exam - Female: deferred General: Yes bladder normal to palpation External Female Exam: normal external appearance and normal appearance of the urethra Speculum Exam - Vagina: normal appearance of the vagina, normal palpation and normal vaginal discharge Speculum Exam - Cervix: normal appearance of the cervix and normal palpation Bimanual exam- vagina & uterus: normal bimanual exam, normal palpation, uterine size normal, bladder normal to palpation, normal palpation and non-tender Bimanual Exam- Adnexa, other: no masses Skin General skin exam: no rashes or lesions noted Rashes: no rashes Neuro General: patient oriented x3 Cognition (Neuro): normal cognition Extrem General: Yes normal to inspection Psych Attitude: cooperative Thought process: Normal thought process present Assessment & Plan Assessment & Plan (1) FH: breast cancer in first degree relative: Code(s): Z80.3 - Family history of malignant neoplasm of breast Category: Medical Plan: Discussed: Information regarding breast breast surveillance with regards to family history, accepts referral to breast surgeon for consultation and plan of care. The patient expressed understanding and agreement with the plan of care. All of her questions and concerns were addressed to the best of my ability. (2) Screening for cervical cancer: Code(s): Z12.4 - Encounter for screening for malignant neoplasm of cervix Category: Medical Plan: Pap obtained HPV order, await results for final plan of care. (3) Well woman exam with routine gynecological exam: Code(s): Z01.419 - Encounter for gynecological examination (general) (routine) without abnormal findings Category: Medical Plan Discussed: Current recommendations for pap smears per ASCCP guidelines. Breast awareness, periodic self breast exams and yearly mammogram. Menopause verses perimenopause. Menopause is definitive of 1 year of no menses or 12 months in succession. Report any abnormal uterine bleeding in example prolonged episodes, or short intervals less than 24 days. Maintain a healthy lifestyle, well balanced diet including Calcium 1,200 mg and Vitamin D 600 IU daily, and routine exercise. Contact the office with any postmenopausal bleeding. Patient verbalizes understanding and agrees to the plan of care. She was given opportunity to ask questions and all questions were answered to the best of my ability. RTO in 1 year for annual president exam. This note is constructed using voice recognition software. While every effort has been made to ensure accuracy, radiology tech errors may have been included. Orders: Orders HPV High risk Today Z01.419 - Encounter for gynecological examination (general) (routine) without abnormal findings, Z12.4 - Encounter for screening for malignant neoplasm of cervix Pap Smear Today Z01.419 - Encounter for gynecological examination (general) (routine) without abnormal findings Referrals Breast Surgery Referral Z80.3 - Family history of malignant neoplasm of breast Coding Level of Care Code Est Pt Prev Care 40-64y(43513) Diagnoses FH: breast cancer in first degree relative Z80.3 Screening for cervical cancer Z12.4 Well woman exam with routine gynecological exam Z01.419
[2025-06-26 15:57] VITALS: BP 112/72; BMI 30.9
--- OUTSIDE RECORDS SUMMARY | 2025-06-26 16:58 | XMS_ITS | Clinical Summary ---
Author Organization [facility] Address [address] [facility] [address] [place] [phone] Phone Care Team Providers Care Subcontract Manager Name Role Phone Nell Carrera MD Primary Care Provider Allergies Active Allergy Reactions Criticality Noted Date Comments Erythromycin 12/23/2022 Medications No known medications Active Problems No known active problems Immunizations Immunization Administration Dates Next Due Influenza Quadrivalent MDCK [...] with a working camera? Not on file Comments Unknown Sex and Gender Information Value Date Recorded Sex Assigned at Not on file Legal Sex Female 9:32 PM EDT Gender Identity Not on file Sexual Orientation Not on file Last Filed Vital Signs Vital Sign Reading Time Taken Comments Blood Pressure 145/91 12/23/2022 3:20 PM EDT Pulse 87 12/23/2022 3:20 PM EDT Temperature 36.3 C (97.3 F) 12/23/2022 3:20 PM EDT Respiratory Rate 18 12/23/2022 3:20 PM EDT Oxygen Saturation 98% 12/23/2022 3:20 PM EDT Inhaled Oxygen Concentration - - Weight 96.2 kg (212 lb) 12/23/2022 3:20 PM EDT Height 162.6 cm (5' 4 ) 12/23/2022 3:20 PM EDT Body Mass Index 36.39 12/23/2022 3:20 PM EDT Plan of Treatment Health Maintenance Due Date Last Done Comments LIPID PANEL 1972 DEPRESSION SCREENING 1984 HEPATITIS C SCREENING 1990 HIV ONE-TIME SCREENING (18-6 5 YEARS) 1990 PAP SMEAR 1993 SCREENING FOR DIABETES 2007 MAMMOGRAM 2012 COLOGUARD 2017 COLONOSCOPY 2017 COLORECTAL CANCER SCREENING 2017 FIT TEST 2017 FOBT 2017 SIGMOIDOSCOPY 2017 VIRTUAL COLONOSCOPY 2017 PNEUMOCOCCAL VACCINES (50+ years) (2 of 2 - PCV) 2022 04/13/2019 ZOSTER VACCINES (1 of 2) 2022 INFLUENZA VACCINE (#1) 2025 06/17/2022 COVID-19 VACCINE (4 - 2024-2 6 season) 2025 07/25/2021, 12/20/2020, 11/22/2020 Adult Td,Tdap Booster 04/13/2029 [...] age to complete this topic MENINGOCOCCAL VACCINES (B) Aged Out N o longer eligible based on patient's age to complete this topic Medical Devices Not on file [place] [address] [address] [address] [place] [address] [place] [address] [facility] LIMITED [place] [address] [place] [address] [employer] [place] [address] [place] [address] [facility] LIMITED [place] [address] [place] [address] [employer] LIMITED NETWORK HMO Care Teams Subcontract Manager Relationship Specialty Start Date End Date Nell Carrera MD [facility] [address] PCP - General Internal Medicine 12/23/22 Additional Source Comments The information contained in this document represents components of the legal health record. It is not the complete legal health record.[facility]
== END 2025-06-26 16:26 | disposition home or self-care (01) ==
LOC: HO.HWS 15:44
PROVIDERS: PCP Family Medicine; Visit Provider Advanced Practice Midwife
DX: Z01.419 Encounter for gynecological examination (general) (routine) without abnormal findings (principal); Z80.3 Family history of malignant neoplasm of breast; Z12.4 Encounter for screening for malignant neoplasm of cervix
CPT/HCPCS: 99396; 99459; Q0091

== ENCOUNTER 2025-06-26 15:43 | Outpatient (REF) | payer BC, SELFPAY | END 2025-06-26 15:44 | disposition home or self-care (01) | LOC: HO.LNP 15:43 | PROVIDERS: PCP Family Medicine; Visit Provider Advanced Practice Midwife | DX: Z01.419 Encounter for gynecological examination (general) (routine) without abnormal findings (principal); Z80.3 Family history of malignant neoplasm of breast | CPT/HCPCS: 87626; 88175 ==

== ENCOUNTER 2025-07-17 09:46 | Outpatient (REF) | payer BC, SELFPAY ==
--- OUTSIDE RECORDS SUMMARY | 2025-07-17 11:04 | XMS_ITS | Clinical Summary ---
Author Organization [facility] Address [address] [email or web address] [facility] [address] [place] [phone] Phone Care Team Providers Care Reliability Manager Name Role Phone Nell Carrera MD [...] 12/20/2020, 11/22/2020 Adult Td,Tdap Booster 04/13/2029 04/13/2019 RSV VACCINE (1 - 1-dose 75+ series) 2047 SMOKING STATUS SCREENING (On ce After 26 [...] topic Medical Devices Not on file [place] [address] [place] [address] [place] [address] [place] [address] [place] [address] [place] [address] NETWORK O [facility] LIMITED NETWORK HMO Care Teams Reliability Manager Relationship Specialty Start Date End Date Nell Carrera MD [address] [place] [address] PCP - General Internal Medicine 12/23/22 Additional Source Comments The information contained in this document represents components of the legal health record. It is not the complete legal health record.[facility]
[2025-07-17 12:06] LABS: Anion Gap 12 (12-20); Blood Urea Nitrogen 13 mg/dL (9-16); Calcium 9.3 mg/dL (8.4-10.2); Carbon Dioxide 28 mmol/L (22-29); Chloride 106 mmol/L (96-108); Estimated Glomerular Filt Rate > 60; Potassium 4.4 mmol/L (3.3-5.1); Sodium 142 mmol/L (135-145)
== END 2025-07-17 09:47 | disposition home or self-care (01) ==
LOC: HO.WFDLDS 09:46
PROVIDERS: Visit Provider Family Medicine
DX: Z00.00 Encounter for general adult medical examination without abnormal findings (principal); E11.65 Type 2 diabetes mellitus with hyperglycemia
CPT/HCPCS: 36415; 80048; 83036

== ENCOUNTER 2025-07-23 16:16 | Outpatient (AMB) | payer BC, SELFPAY ==
--- NOTE | 2025-07-23 16:18 | A.OFFPC_ITS ---
Vital Signs 07/23/25 16:20 Height 5 ft 5 in Weight 183 lb BMI 30.4 BP 108/84 Blood Pressure Location Lt brachial Position Sitting Respiration 14 Pulse 81 Pulse Source Pulse Oximeter Temp 97.6 F Temp Source Oral Pulse Oximetry (%) 98 Oxygen Delivery Method Room Air Intake Visit Reasons: f/u diabetes, HTN Intake Note: Follow up diabetes Allergies azithromycin Allergy (Unknown, Verified 07/23/25 16:21) stomach upset Medication List - Last Reconciled 07/23/25 by Graham Howard MD albuterol sulfate 90 mcg/actuation 2 puffs inhalation Q4-6H PRN 30 days atorvastatin 10 mg PO BEDTIME 90 days blood sugar diagnostic (FreeStyle Lite Strips) DX: E11.9, test blood sugar three times a day, 30 days blood-glucose meter (FreeStyle Lite Meter kit) DX: E11.9, test blood sugar 4 times a day, duration 999 days blood-glucose sensor (Dexcom G7 Sensor device) As directed, 28 days blood-glucose,beam carrier hauler pusher,cont (Dexcom G7 Softball Player) As directed, 999 days ferrous sulfate 325 mg PO DAILY 90 days fluticasone propionate 50 mcg/actuation (Flonase Allergy Relief) 1 spray intranasal Q12H 30 days lancets (FreeStyle Lancets) Test BS 3 times a day losartan 25 mg PO DAILY 90 days mirabegron ER (Myrbetriq) 25 mg PO DAILY 90 days tirzepatide 10 mg (0.5 mL) subcut QWEEK 28 days Tobacco use date assessed: 12/15/24 Dental Screening Dental Screen Date: 08/30/24 HPI f/u diabetes, HTN HPI Details 54 y/o female presents to f/u diabetes, HTN. Blood pressure today 108/84, 81p. She is on losartan 2mg daily. A1c 07/17/25 5.6%. Recent eye exam showed no diabetic retinopathy. [facility] Medical History FH: breast cancer in first degree relative Diabetes delivery delivered Asthma Surgical History H/O tubal ligation Family History Mother Breast cancer, Onset Age: 68 Sister Breast cancer, Onset Age: 50 Family/Other Leukemia Social History Household Members: Spouse Housing: House Are you a primary transitions rn care coordinator to a significant other at home: No Do you presently have visiting nurse or other home services: No 75 years or older and lives alone: No Alcohol intake: current Patient Tobacco Use Status: Never used Tobacco e-Cigarette/Vaping Use: Never Used service: No Current occupational status: employed 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[employer] Current occupational exposures/hazards: No Cognitive needs: No Hearing needs: No Vision needs: Yes (Patient wears transition lenses) Female Reproductive History Menstrual Age of Menarche: 16 Questionnaire Thrive Questionnaire Date Thrive assessed: 10/25/24 I am a: Patient What is your living situation today?: I have a steady place to live Within the past 12 months, did the food you bought not last and you didn't have the money to get more?: Never true Within the past 12 months, did you worry whether your food would run out before you got money to buy more?: Never true Do you have trouble paying for medicines?: No Do you have trouble getting transportation to medical appointments?: No Do you have trouble paying your heating and electricity bill?: No Do you have trouble taking care of your child, family member or friend?: No Do you have trouble with day-to-day activities such as bathing, preparing meals, shopping, managing finances, etc.?: No Are you currently unemployed and looking for a job?: No Are you interested in more education?: No Please select the resources that you would like help with: None Currently or been in a relationship where the following occur: No concerns reported THRIVE Score: 0 ROBERTO-7 AMB Questionnaire ROBERTO-7 Date ROBERTO - 7 assessed: 12/15/24 Source: Developed by Drs. Lenin Ortiz, Felicia Pitts, Amador Rodarte and colleagues, with an educational marichuy from [employer]. Review of Systems Const Denies chills, Denies fatigue, Denies fever(s), Denies headache(s) and Denies weakness ENT Denies dizziness and Denies headache(s) Card Denies dyspnea Resp Denies cough, Denies dyspnea, Denies wheezing and Denies other (shortness of breath) Musc Denies numbness and Denies tingling Neuro Denies dizziness, Denies headache(s), Denies numbness, Denies tingling and Denies weakness Psych Denies anxiety and Denies depression Endo Denies fatigue Aller/Immun Denies wheezing Physical exam (Primary Care) Vital Signs: Last Vital Signs Temp 97.6 F 07/23/25 16:20 Pulse 81 07/23/25 16:20 Resp 14 07/23/25 16:20 BP 108/84 07/23/25 16:20 Pulse Ox 98 07/23/25 16:20 Oxygen Delivery Method Room Air 07/23/25 16:20 BMI result Body Mass Index 30.4 Tobacco/Smoking Status: Tobacco use Status Tobacco use date assessed 12/15/24 07/23/25 16:20 Patient Tobacco Use Status Never used Tobacco 07/23/25 16:20 e-Cigarette/Vaping Use Never Used 07/23/25 16:20 Thrive Assessment: Date of Thrive Assessment Date Thrive assessed 10/25/24 07/23/25 16:20 Currently or been in a relationship where the following occur: No concerns reported Const General: well developed; No acute distress Nutritional Appearance: well nourished Orientation/consciousness: patient oriented x3 HENMT Head: Yes normocephalic and Yes atraumatic Eyes General: appearance normal, both eyes and all related structures Pupils: Equal, round and reactive pupils present EOM: EOMs intact bilaterally Resp Effort & Inspection: normal respiratory effort Neuro General: patient oriented x3 and gait normal Cranial nerves: Yes Equal, round and reactive pupils present Psych Affect: normal affect Coding Level of Care Code Est Pt Level 3 (99807) Diagnoses Hypertension I10 Diabetes E11.9 Assessment & Plan Assessment & Plan (1) Hypertension: Code(s): I10 - Essential (primary) hypertension Category: Medical Plan: Blood pressure is well controlled. Goal is less than 140/90 Continue current medication (2) Diabetes: Code(s): E11.9 - Type 2 diabetes mellitus without complications Category: Medical Plan: Recent A1c 5.6%. Good control. Goal is less than 7.0%. Continue current medication Continue diabetic diet Continue weight loss Recent eye exam showed no diabetic retinopathy. Up-to-date. Orders: Orders Lipid Panel Today Z00.00 - Encounter for general adult medical examination without abnormal findings Comprehensive [place]. Panel Fast Today Z00.00 - Encounter for general adult medical examination without abnormal findings Microalbumin, Random (w Creat) Today I10 - Essential (primary) hypertension UA CC w/rflx Micro + Cult Today Z00.00 - Encounter for general adult medical examination without abnormal findings Medications: Refilled tirzepatide 10 mg (0.5 mL) subcut QWEEK 2 mL 3RF 28 days
[2025-07-23 16:20] VITALS: BP 108/84; PULSE 81; RESP 14; TEMP 36.4; O2SAT 98; BMI 30.4
--- OUTSIDE RECORDS SUMMARY | 2025-07-23 19:06 | XMS_ITS | Clinical Summary ---
Author Organization [facility] Address [address] [facility] [address] [place] [address] Phone Care Team Providers Care Operations Leader Name Role Phone Nell Carrera MD Primary [...] topic Medical Devices Not on [place] [address] [place] [address] [place] [place] [address] [place] [place] [address] [place] [address] [place] [address] NETWORK O [facility] LIMITED NETWORK HMO Care Teams Operations Leader Relationship Specialty Start Date End Date Nell Carrera MD [address] [facility] [address] PCP - General Internal Medicine 12/23/22 Additional Source Comments The information contained in this document represents components of the legal health record. It is not the complete legal health record.[facility]
== END 2025-07-23 16:39 | disposition home or self-care (01) ==
LOC: HO.HMCFM 16:17
PROVIDERS: PCP Family Medicine; Visit Provider Family Medicine
DX: I10 Essential (primary) hypertension (principal); E11.9 Type 2 diabetes mellitus without complications

== ENCOUNTER 2025-08-20 10:32 | Outpatient (REF) | payer BC, SELFPAY ==
--- OUTSIDE RECORDS SUMMARY | 2025-08-20 13:08 | XMS_ITS | Clinical Summary ---
Author Organization [facility] Address [address] [facility] [address] [place] [address] Phone Care Team Providers Care Passenger Flagman Name Role Phone Nell Carrera MD Primary [...] topic Medical Devices Not on [place] [address] [place] [address] [place] [address] [place] [address] [place] [address] [place] [address] [place] [address] [place] [address] NETWORK O [facility] LIMITED NETWORK HMO Care Teams Passenger Flagman Relationship Specialty Start Date End Date Nell Carrera MD [address] [facility] [place] [address] PCP - General Internal Medicine 12/23/22 Additional Source Comments The information contained in this document represents components of the legal health record. It is not the complete legal health record.[facility]
[2025-08-20 14:23] LABS: Appearance Urine Clear; Glucose Urine UA Negative (Negative); PH 6.5 (5.0-9.0); Specific Gravity - Urine 1.010 (1.005-1.025); UMIC TRIGGER UACC YES
[2025-08-20 15:40] LABS: Alanine Aminotransferase 23 U/L (0-31); Albumin Level 4.5 g/dL (3.5-5.0); Alkaline Phosphatase 65 U/L (39-117); Anion Gap 11 (12-20); Aspartate Amino Transferase 26 U/L (5-31); Blood Urea Nitrogen 12 mg/dL (9-16); Calcium 9.7 mg/dL (8.4-10.2); Carbon Dioxide 28 mmol/L (22-29); Chloride 106 mmol/L (96-108); Cholesterol 167 mg/dL (<200); Estimated Glomerular Filt Rate > 60; HDL Cholesterol 43 mg/dL (>40); Potassium 4.4 mmol/L (3.3-5.1); Sodium 141 mmol/L (135-145); Total Protein 7.7 g/dL (6.5-8.0); Triglycerides 103 mg/dL (<150)
[2025-08-20 16:49] LABS: UACC Culture Trigger YES
== END 2025-08-20 10:33 | disposition home or self-care (01) ==
LOC: HO.WFDLDS 10:32
PROVIDERS: Visit Provider Family Medicine
DX: Z00.00 Encounter for general adult medical examination without abnormal findings (principal); I10 Essential (primary) hypertension
CPT/HCPCS: 36415; 80053; 80061; 81001; 82043; 82570; 87086